=== PATIENT | female | born 1950 | race Caucasian/White ===

== ENCOUNTER → 2018-02-06 07:03 | Outpatient (CLI) | payer MEDICARE, OTHER, SELFPAY | PROVIDERS: PCP Nurse Practitioner; Visit Provider Nurse Practitioner | DX: E78.2 Mixed hyperlipidemia (principal) ==

== ENCOUNTER → 2018-07-01 08:13 | Outpatient (CLI) | payer MEDICARE, OTHER, SELFPAY ==
[2018-07-01 08:58] LABS: Alanine Aminotransferase 30 IU/L (9-52); Albumin Globulin Ratio 1.4 (1.0-2.8); Alkaline Phosphatase 100 U/L (38-126); Aspartate Aminotransferase 24 IU/L (14-36); BUN Creatinine Ratio 32.5 (6-22); Bilirubin Total 0.6 mg/dL (0.2-1.3); Blood Urea Nitrogen 26 mg/dL (7-17); Calcium 9.2 mg/dL (8.4-10.2); Carbon Dioxide 27 mmol/L (22-32); Chloride 106 mmol/L (98-107); Cholesterol 249 mg/dL (140-199); Estimated Glomerular Filt Rate > 60.0 mL/min (>60); Globulin 2.9 g/dL (1.7-4.1); Glucose 100 mg/dL (80-110); HDL Cholesterol 46 mg/dL (40-60); HEMOLYSIS < 15 (0-50); LDL Cholesterol Calculated 174 mg/dL (<100); Sodium 140 mmol/L (137-145); Total Protein 6.9 g/dL (6.3-8.2); Triglycerides 146 mg/dL (35-150)
== END ==
PROVIDERS: PCP Nurse Practitioner; Visit Provider Nurse Practitioner
DX: E78.2 Mixed hyperlipidemia (principal)
CPT/HCPCS: 36415; 80053; 80061

== ENCOUNTER 2021-02-06 13:45 | Outpatient (RCR) | payer MEDICARE, OTHER, SELFPAY ==
--- NOTE | 2020-12-30 15:07 | PT.OIE ---
Current Diagnoses Pain in unspecified hip (12/30/20) Visit Care Team Role Provider Type Mica Pace MD Primary Care Provider Non-Staff Specialty: Internal Medicine Address: [address] [place] [address], [id number] Email: Beatrice Holly MD Family Provider Non-Staff Specialty: Internal Medicine Address: [address] [place] [address], [id number] Email: Len Solorzano MD Attending Provider Non-Staff Referring Provider Specialty: Orthopedic Surgery Address: [address] [place] [address], [id number] Email: Physical Therapy Initial Evaluation PT-OP-A Visit Information Start: 12/30/20 14:40 Freq: Status: Active Protocol: Document 12/30/20 14:41 HH (Rec: 12/30/20 15:07 [email or web address]) Out-Patient Physical Therapy Visit Information Visit Information Visit Type Initial Evaluation Visit Start Time 13:45 Visit Stop Time 14:40 Total Visit Minutes 55 Visit Number 03/22 Number of RECREATIONAL THERAPY TECHNICIAN Visits 0 Evaluation Information Evaluation Date 12/30/20 Precautions Precautions cancer survivor osteopenia PT-OP-B Current Condition Start: 12/30/20 14:40 Freq: Status: Active Protocol: Document 12/30/20 14:41 HH (Rec: 12/30/20 15:07 [email or web address]) Current Condition History of Current Condition Onset Date this summer Current Complaints L lateral hip pain, difficulty with walking History of Current Condition Caitie is a 70yo female here for her L lateral hip pain started this summer after completing a long course of house remodeling which involved heavy lifting. She does not recall any injury but L hip progressively kept getting sore. Her 09/10 pain locates primarily at greater trochanter. Worse with any WB activities, hip movements and sitting. She also has pain sleeping on her L side. She went to see Dr. Solorzano and her hip x-ray= WFL. She was dx with buritis and had a cortisone shot in November which lasted 2 weeks. Denies joint pain, radiating pain, tingling and numbnes. 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 Current Functional Impairments (Reported) Functional Limitations- ADL's unable to sleep on her L side Functional Limitations- Mobility/Gait unable to walk >10mins PT-OP-C Subjective Start: 12/30/20 14:40 Freq: Status: Active Protocol: Document 12/30/20 14:41 (Rec: 12/30/20 15:07 [email or web address]) Patient Questionnaires Lower Extremity Functional Scale LEFS Score 25 LEFS Impairment 60 to 79% Impaired (Score 17- 31) OP-PT Pain Assessment Location L lateral hip Pain Location Details greater trochanter Intensity 8 Scale Used Numeric (0 - 10) Description Aching,Dull Frequency Frequent Pain Aggravating Factors Position,ADL's,Activity, Exercise,Standing,Sitting, Walking,Stair Climbing,Bending ,Lifting Pain Alleviating Factors Cold,Inactivity PT-OP-D Balance Start: 12/30/20 14:40 Freq: Status: Active Protocol: Document 12/30/20 14:41 HH (Rec: 12/30/20 15:07 [email or web address]) Balance Tests Single Limb Standing Single Limb- Right >30s Single Limb- Left unable PT-OP-F Manual Assessment Start: 12/30/20 14:40 Freq: Status: Active Protocol: Document 12/30/20 14:41 HH (Rec: 12/30/20 15:07 [email or web address]) Manual Assessments Soft Tissue Assessment Soft Tissue Mobility Assessment significant pain to light pressure at TFL, greater trochanter and glute max mild pain at IT band significant swelling noted at greater trochanter PT-OP-G Mobility & Gait Start: 12/30/20 14:40 Freq: Status: Active Protocol: Document 12/30/20 14:41 HH (Rec: 12/30/20 15:07 [email or web address]) OP Mobility Evaluation Transfers Sit to Stand stagger stance with push off with UEs from armrests. OP Gait Assessment Gait Deviations General Gait Pattern Antalgic,Decreased Stride Length,Decreased Feet Clearance Factors Limiting Gait Function Factors Limiting Gait Function Decreased Activity Tolerance, Decreased Strength,Limited Range of Motion,Pain,Poor Balance Comments Gait Comments pt walked with a flexed posture; lack of hip extension L>R. Toe in gait L>R; toe strike with LLE. PT-OP-H Neuro Start: 12/30/20 14:40 Freq: Status: Active Protocol: Document 12/30/20 14:41 HH (Rec: 12/30/20 15:07 [email or web address]) Sensation Evaluation Gross Sensation Gross Sensation WNL Deep Tendon Reflex & Clonus Assessment Deep Tendon Reflex Bilateral Achilles Deep Tendon Reflex 2+ Normal Bilateral Patellar Deep Tendon Reflex 2+ Normal PT-OP-J Posture/Palpation/Skin Start: 12/30/20 14:40 Freq: Status: Active Protocol: Document 12/30/20 14:41 HH (Rec: 12/30/20 15:07 [email or web address]) Posture Evaluation Position Standing Weight Distribution Weight Shifted Right Hip Posture (L) Internally Rotated,(R) Internally Rotated PT-OP-K Range of Motion Start: 12/30/20 14:40 Freq: Status: Active Protocol: Document 12/30/20 14:41 HH (Rec: 12/30/20 15:07 [email or web address]) Hip Goniometric Range of Motion Hip Right Active Straight Leg Raise 85 Extension 5 Internal Rotation 40 External Rotation 32 Comments passive extension with pain at lumbar spine pain at knee with both rotation Left Active Straight Leg Raise 85 Extension 0 Internal Rotation 48 External Rotation 30 Comments passive extension with pain at lumbar spine pain at knee with both rotation PT-OP-L Special Tests Start: 12/30/20 14:40 Freq: Status: Active Protocol: Document 12/30/20 14:41 HH (Rec: 12/30/20 15:07 [email or web address]) Special Tests Hip Special Tests Reggie Test Results +VE Comments pain at lumbar FADDIR Comments pain at trochanter Straight Leg Raise Test Results -ve PANCHITO Comments significant tightness at adductors Scour Test Test Results -ve PT-OP-M Strength Start: 12/30/20 14:40 Freq: Status: Active Protocol: Document 12/30/20 14:41 HH (Rec: 12/30/20 15:07 [email or web address]) Hip Strength Hip Manual Muscle Testing Right Flexion (L2) 4- Good- Extension (S1) 4- Good- Abduction 4- Good- Adduction 4- Good- Left Flexion (L2) 3+ Fair+ Extension (S1) 3+ Fair+ Abduction 3+ Fair+ Adduction 3+ Fair+ Knee Strength Knee Manual Muscle Testing Right Flexion (S2) 4 Good Extension (L3) 4 Good Left Flexion (S2) 4 Good Extension (L3) 4 Good PT-OP-Q Treatments Start: 12/30/20 14:40 Freq: Status: Active Protocol: Document 12/30/20 14:41 (Rec: 12/30/20 15:07 [email or web address]) Therapeutic Exercises Supine Exercises figure 4 stretch Supine Exercise Name hip Side left Reps/Minutes 20s hold x5 Comments for HEP, pt reports significant stretching pain at adductor Manual Therapy Treatment Soft Tissue Mobilization L hip Body Location TFL, glute mid Mobilization Type Manual Lymphatic Drainage Intensity/Depth Superficial Body Position Sidelying Comments pt has significant facial grimicing pain to light pressure. it decreases towards the end of session PT-OP-T Assessment and Plan Start: 12/30/20 14:40 Freq: Status: Active Protocol: Document 12/30/20 14:41 (Rec: 12/30/20 15:07 [email or web address]) Physical Therapy Assessment Rehab Potential Rehabilitation Potential Excellent Evaluation Complexity Number of Personal Factors/Comorbidities 3 or More Number of Body Systems Impaired 3 Clinical Presentation at Evaluation Stable Impairments Impairments Activity Tolerance,Balance, Functional Activities, Functional Mobility,Gait,Pain, Posture,ROM,Soft Tissue Mobility,Strength Goals RoM Impairment pt has limited hip ROM Short Term Goal (STG) pt will show improved hip extension and external rotation by 10 degrees. STG Duration 4 weeks Dog Handler Goal (LTG) pt will show improved hip extension and external rotation in order for her to amb with neutral foot and hip position LTG Duration 8 weeks pain Impairment 7/10 L hip pain Short Term Goal (STG) pt will be able to sleep on her L side without increase in L hip pain STG Duration 4 weeks Dog Handler Goal (LTG) pt will be able to walk up to 1 mile 3 times /week without increase in hip pain LTG Duration 8 weeks LEFS Impairment pt scores 25 on LEFS Short Term Goal (STG) pt will be able to show improved hip mobility and strength by scoring >35 on LEFS STG Duration 4 weeks Fpc Goal (LTG) pt will be able to show improved hip mobility and strength by scoring >50 on LEFS LTG Duration 8 weeks Assessment Summary Assessment Caitie is a 70 yo female here for her L hip pain since this summer. Upon assessment, pt presents signs of L greater trochanteric burisits most likely d/t her very limited hip extension and external rotation. This might be d/t her life long toe in walking pattern, skiing and horseriding hobbies. She did respond very well after a short session of manual therapy and hip extension and ER stretch. However, this could be a long course of rehab d/t her existed knee and back pain. Pt will surely benefit from skilled therapy to improve her hip ROM, strength and gait mechanics. Physical Therapy Plan Frequency and Duration Frequency of Treatment 2x/Week Duration of Treatment 8 weeks Plan of Care Start Date 12/30/20 Plan of Care End Date 02/28/21 Therapeutic Interventions Therapeutic Interventions Aquatic Therapy,Balance Training,Gait Training,Home Exercise Program,Joint Mobilizations,Manual Therapy, Neuromuscular Re-education, Patient/Caregiver Education, Self-Care/Home Management,Soft Tissue Mobilization,Taping, Therapeutic Activities, Therapeutic Exercises Modalities Cold Pack/Ice Massage,Electric Stimulation,Hot Packs, Infrared Therapy,Ultrasound Next Visit Focus/Plan Next Note Type Treatment Note Next Visit Plan figure 4 stretch traction hip extension stretchS STM
--- NOTE | 2020-12-30 15:08 | PT.OPPOC ---
Physical, Occupational & Speech Therapy At [facility] Current Diagnoses Pain in unspecified hip (12/30/20) Visit Care Team Role Provider Type Mica Pace MD Primary Care Provider Non-Staff Specialty: Internal Medicine Address: [address] [place] [address], [id number] Email: Beatrice Holly MD Family Provider Non-Staff Specialty: Internal Medicine Address: [address] [place] [id number] Email: Len Solorzano MD Attending Provider Non-Staff Referring Provider Specialty: Orthopedic Surgery Address: [address] [place] [address], [phone] Email: Plan Of Care PT-OP-T Assessment and Plan Start: 12/30/20 14:40 Freq: Status: Active Protocol: Document 12/30/20 14:41 (Rec: 12/30/20 15:07 [email or web address]) Physical Therapy Assessment Rehab Potential Rehabilitation Potential Excellent Evaluation Complexity Number of Personal Factors/Comorbidities 3 or More Number of Body Systems Impaired 3 Clinical Presentation at Evaluation Stable Impairments Impairments Activity Tolerance,Balance, Functional Activities, Functional Mobility,Gait,Pain, Posture,ROM,Soft Tissue Mobility,Strength Goals RoM Impairment pt has limited hip ROM Short Term Goal (STG) pt will show improved hip extension and external rotation by 10 degrees. STG Duration 4 weeks Recreational Director Goal (LTG) pt will show improved hip extension and external rotation in order for her to amb with neutral foot and hip position LTG Duration 8 weeks pain Impairment 7/10 L hip pain Short Term Goal (STG) pt will be able to sleep on her L side without increase in L hip pain STG Duration 4 weeks Recreational Director Goal (LTG) pt will be able to walk up to 1 mile 3 times /week without increase in hip pain LTG Duration 8 weeks LEFS Impairment pt scores 25 on LEFS Short Term Goal (STG) pt will be able to show improved hip mobility and strength by scoring >35 on LEFS STG Duration 4 weeks Custodial Goal (LTG) pt will be able to show improved hip mobility and strength by scoring >50 on LEFS LTG Duration 8 weeks Assessment Summary Assessment Caitie is a 70 yo female here for her L hip pain since this summer. Upon assessment, pt presents signs of L greater trochanteric burisits most likely d/t her very limited hip extension and external rotation. This might be d/t her life long toe in walking pattern, skiing and horseriding hobbies. She did respond very well after a short session of manual therapy and hip extension and ER stretch. However, this could be a long course of rehab d/t her existed knee and back pain. Pt will surely benefit from skilled therapy to improve her hip ROM, strength and gait mechanics. Physical Therapy Plan Frequency and Duration Frequency of Treatment 2x/Week Duration of Treatment 8 weeks Plan of Care Start Date 12/30/20 Plan of Care End Date 02/28/21 Therapeutic Interventions Therapeutic Interventions Aquatic Therapy,Balance Training,Gait Training,Home Exercise Program,Joint Mobilizations,Manual Therapy, Neuromuscular Re-education, Patient/Caregiver Education, Self-Care/Home Management,Soft Tissue Mobilization,Taping, Therapeutic Activities, Therapeutic Exercises Modalities Cold Pack/Ice Massage,Electric Stimulation,Hot Packs, Infrared Therapy,Ultrasound Next Visit Focus/Plan Next Note Type Treatment Note Next Visit Plan figure 4 stretch traction hip extension [facility]S [facility] Plan of Care Dates Plan of Care Start Date 12/30/20 Plan of Care End Date 02/28/21 Electronically Signed by: Kamran Murguia, PT 12/30/20 [id number] Please Sign and Return: I have reviewed this Plan of Care and certify that the skilled therapy services above are required to meet the patient?s needs. Physician Signature Date Printed Name and Credentials Clinical Instructor Signature Printed Name and Credentials
--- NOTE | 2021-01-06 14:32 | PT.OTN ---
Current Diagnoses Pain in unspecified hip (01/06/21) Physical Therapy Treatment Note PT-OP-A Visit Information Start: 12/30/20 14:40 Freq: Status: Active Protocol: Document 01/06/21 13:39 HH (Rec: 01/06/21 14:31 [id number]) Out-Patient Physical Therapy Visit Information Visit Information Visit Type Treatment Note Visit Start Time 13:45 Visit Stop Time 14:30 Total Visit Minutes 45 Visit Number 2/ Number of JUNIOR STAFF ACCOUNTANT Visits 0 PT-OP-B Current Condition Start: 12/30/20 14:40 Freq: Status: Active Protocol: Document 12/30/20 14:41 HH (Rec: 12/30/20 15:07 [email or web address]) Current Condition History of Current Condition Onset Date this summer Current Complaints L lateral hip pain, difficulty with walking History of Current Condition Caitie is a 70yo female here for her L lateral hip pain started this summer after completing a long course of house remodeling which involved heavy lifting. She does not recall any injury but L hip progressively kept getting sore. Her 09/10 pain locates primarily at greater trochanter. Worse with any WB activities, hip movements and sitting. She also has pain sleeping on her L side. She went to see Dr. Solorzano and her hip x-ray= WFL. She was dx with buritis and had a cortisone shot in November which lasted 2 weeks. Denies joint pain, radiating pain, tingling and numbnes. 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 Current Functional Impairments (Reported) Functional Limitations- ADL's unable to sleep on her L side Functional Limitations- Mobility/Gait unable to walk >10mins PT-OP-C Subjective Start: 12/30/20 14:40 Freq: Status: Active Protocol: Document 01/06/21 13:39 HH (Rec: 01/06/21 14:31 [id number]) OP-PT Subjective Patient Comments Patient Comments Im walking better with slightly less pain. Sleeping is about the same. I have been doing my stretches. Patient Reported Progress Improving PT-OP-D Balance Start: 12/30/20 14:40 Freq: Status: Active Protocol: Document 12/30/20 14:41 HH (Rec: 12/30/20 15:07 [email or web address]) Balance Tests Single Limb Standing Single Limb- Right >30s Single Limb- Left unable PT-OP-F Manual Assessment Start: 12/30/20 14:40 Freq: Status: Active Protocol: Document 12/30/20 14:41 (Rec: 12/30/20 15:07 [email or web address]) Manual Assessments Soft Tissue Assessment Soft Tissue Mobility Assessment significant pain to light pressure at TFL, greater trochanter and glute max mild pain at IT band significant swelling noted at greater trochanter PT-OP-G Mobility & Gait Start: 12/30/20 14:40 Freq: Status: Active Protocol: Document 12/30/20 14:41 HH (Rec: 12/30/20 15:07 [email or web address]) OP Mobility Evaluation Transfers Sit to Stand stagger stance with push off with UEs from armrests. OP Gait Assessment Gait Deviations General Gait Pattern Antalgic,Decreased Stride Length,Decreased Feet Clearance Factors Limiting Gait Function Factors Limiting Gait Function Decreased Activity Tolerance, Decreased Strength,Limited Range of Motion,Pain,Poor Balance Comments Gait Comments pt walked with a flexed posture; lack of hip extension L>R. Toe in gait L>R; toe strike with LLE. PT-OP-H Neuro Start: 12/30/20 14:40 Freq: Status: Active Protocol: Document 12/30/20 14:41 (Rec: 12/30/20 15:07 [email or web address]) Sensation Evaluation Gross Sensation Gross Sensation WNL Deep Tendon Reflex & Clonus Assessment Deep Tendon Reflex Bilateral Achilles Deep Tendon Reflex 2+ Normal Bilateral Patellar Deep Tendon Reflex 2+ Normal PT-OP-J Posture/Palpation/Skin Start: 12/30/20 14:40 Freq: Status: Active Protocol: Document 12/30/20 14:41 (Rec: 12/30/20 15:07 [email or web address]) Posture Evaluation Position Standing Weight Distribution Weight Shifted Right Hip Posture (L) Internally Rotated,(R) Internally Rotated PT-OP-K Range of Motion Start: 12/30/20 14:40 Freq: Status: Active Protocol: Document 12/30/20 14:41 (Rec: 12/30/20 15:07 [email or web address]) Hip Goniometric Range of Motion Hip Right Active Straight Leg Raise 85 Extension 5 Internal Rotation 40 External Rotation 32 Comments passive extension with pain at lumbar spine pain at knee with both rotation Left Active Straight Leg Raise 85 Extension 0 Internal Rotation 48 External Rotation 30 Comments passive extension with pain at lumbar spine pain at knee with both rotation PT-OP-L Special Tests Start: 12/30/20 14:40 Freq: Status: Active Protocol: Document 12/30/20 14:41 HH (Rec: 12/30/20 15:07 [email or web address]) Special Tests Hip Special Tests Reggie Test Results +VE Comments pain at lumbar FADDIR Comments pain at trochanter Straight Leg Raise Test Results -ve PANCHITO Comments significant tightness at adductors Scour Test Test Results -ve PT-OP-M Strength Start: 12/30/20 14:40 Freq: Status: Active Protocol: Document 12/30/20 14:41 HH (Rec: 12/30/20 15:07 [email or web address]) Hip Strength Hip Manual Muscle Testing Right Flexion (L2) 4- Good- Extension (S1) 4- Good- Abduction 4- Good- Adduction 4- Good- Left Flexion (L2) 3+ Fair+ Extension (S1) 3+ Fair+ Abduction 3+ Fair+ Adduction 3+ Fair+ Knee Strength Knee Manual Muscle Testing Right Flexion (S2) 4 Good Extension (L3) 4 Good Left Flexion (S2) 4 Good Extension (L3) 4 Good PT-OP-Q Treatments Start: 12/30/20 14:40 Freq: Status: Active Protocol: Document 01/06/21 13:39 HH (Rec: 01/06/21 14:31 [id number]) Therapeutic Exercises Supine Exercises bridging Reps/Minutes 10 x2 Comments for HEP reggie stretch Reps/Minutes 30s x 5 Comments for HEP figure 4 stretch Supine Exercise Name hip Side left Reps/Minutes 20s hold x5 Comments for HEP, pt reports significant stretching pain at adductor Sidelying Exercises clamshell Reps/Minutes 8x2 Comments for HEP Manual Therapy Treatment Soft Tissue Mobilization hip flexors Mobilization Type Myofascial Release,Sustained Pressure,Trigger Point Release Intensity/Depth Moderate Body Position Hooklying Comments with hip rotation passively. L hip Body Location TFL, glute mid Mobilization Type Myofascial Release Intensity/Depth Superficial Body Position Sidelying Comments pt has significant facial grimicing pain to light pressure. it decreases towards the end of session PT-OP-T Assessment and Plan Start: 12/30/20 14:40 Freq: Status: Active Protocol: Document 01/06/21 13:39 (Rec: 01/06/21 14:31 [id number]) Physical Therapy Assessment Goals RoM Impairment pt has limited hip ROM Short Term Goal (STG) pt will show improved hip extension and external rotation by 10 degrees. STG Duration 4 weeks Hardboard Panel Printer Goal (LTG) pt will show improved hip extension and external rotation in order for her to amb with neutral foot and hip position LTG Duration 8 weeks pain Impairment 7/10 L hip pain Short Term Goal (STG) pt will be able to sleep on her L side without increase in L hip pain STG Duration 4 weeks Fpc Goal (LTG) pt will be able to walk up to 1 mile 3 times /week without increase in hip pain LTG Duration 8 weeks LEFS Impairment pt scores 25 on LEFS Short Term Goal (STG) pt will be able to show improved hip mobility and strength by scoring >35 on LEFS STG Duration 4 weeks Fpc Goal (LTG) pt will be able to show improved hip mobility and strength by scoring >50 on LEFS LTG Duration 8 weeks Assessment Summary Assessment pt reports improvements after evaluation. She walked in here with decreased toe in gait. Added reggie martinez, beau, bridging. Pt reports no pain while walking at the end of session. Physical Therapy Plan Frequency and Duration Frequency of Treatment 2x/Week Duration of Treatment 8 weeks Plan of Care Start Date 12/30/20 Plan of Care End Date 02/28/21 Therapeutic Interventions Therapeutic Interventions Aquatic Therapy,Balance Training,Gait Training,Home Exercise Program,Joint Mobilizations,Manual Therapy, Neuromuscular Re-education, Patient/Caregiver Education, Self-Care/Home Management,Soft Tissue Mobilization,Taping, Therapeutic Activities, Therapeutic Exercises Modalities Cold Pack/Ice Massage,Electric Stimulation,Hot Packs, Infrared Therapy,Ultrasound Next Visit Focus/Plan Next Note Type Treatment Note Next Visit Plan figure 4 stretch traction hip extension stretchS STM
--- NOTE | 2021-01-09 11:20 | PT.OTN ---
Current Diagnoses Pain in unspecified hip (01/09/21) Physical Therapy Treatment Note PT-OP-A Visit Information Start: 12/30/20 14:40 Freq: Status: Active Protocol: Document 01/09/21 10:36 HH (Rec: 01/09/21 11:20 [id number]) Out-Patient Physical Therapy Visit Information Visit Information Visit Type Treatment Note Visit Start Time 10:30 Visit Stop Time 11:23 Total Visit Minutes 53 Visit Number 3 Number of BELT SANDER Visits 0 PT-OP-B Current Condition Start: 12/30/20 14:40 Freq: Status: Active Protocol: Document 12/30/20 14:41 HH (Rec: 12/30/20 15:07 HH [email or web address]) Current Condition History of Current Condition Onset Date this summer Current Complaints L lateral hip pain, difficulty with walking History of Current Condition Caitie is a 70yo female here for her L lateral hip pain started this summer after completing a long course of house remodeling which involved heavy lifting. She does not recall any injury but L hip progressively kept getting sore. Her 09/10 pain locates primarily at greater trochanter. Worse with any WB activities, hip movements and sitting. She also has pain sleeping on her L side. She went to see Dr. Solorzano and her hip x-ray= WFL. She was dx with buritis and had a cortisone shot in November which lasted 2 weeks. Denies joint pain, radiating pain, tingling and numbnes. 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 Current Functional Impairments (Reported) Functional Limitations- ADL's unable to sleep on her L side Functional Limitations- Mobility/Gait unable to walk >10mins PT-OP-C Subjective Start: 12/30/20 14:40 Freq: Status: Active Protocol: Document 01/09/21 10:36 HH (Rec: 01/09/21 11:20 [id number]) OP-PT Subjective Patient Comments Patient Comments I felt really good after last session. I was able to walk better and not much pain. I do feel a bit painful and stiffness today. I stood a lot yesterday. Patient Reported Progress Improving PT-OP-D Balance Start: 12/30/20 14:40 Freq: Status: Active Protocol: Document 12/30/20 14:41 HH (Rec: 12/30/20 15:07 [email or web address]) Balance Tests Single Limb Standing Single Limb- Right >30s Single Limb- Left unable PT-OP-F Manual Assessment Start: 12/30/20 14:40 Freq: Status: Active Protocol: Document 12/30/20 14:41 (Rec: 12/30/20 15:07 [email or web address]) Manual Assessments Soft Tissue Assessment Soft Tissue Mobility Assessment significant pain to light pressure at TFL, greater trochanter and glute max mild pain at IT band significant swelling noted at greater trochanter PT-OP-G Mobility & Gait Start: 12/30/20 14:40 Freq: Status: Active Protocol: Document 12/30/20 14:41 (Rec: 12/30/20 15:07 [email or web address]) OP Mobility Evaluation Transfers Sit to Stand stagger stance with push off with UEs from armrests. OP Gait Assessment Gait Deviations General Gait Pattern Antalgic,Decreased Stride Length,Decreased Feet Clearance Factors Limiting Gait Function Factors Limiting Gait Function Decreased Activity Tolerance, Decreased Strength,Limited Range of Motion,Pain,Poor Balance Comments Gait Comments pt walked with a flexed posture; lack of hip extension L>R. Toe in gait L>R; toe strike with LLE. PT-OP-H Neuro Start: 12/30/20 14:40 Freq: Status: Active Protocol: Document 12/30/20 14:41 (Rec: 12/30/20 15:07 [email or web address]) Sensation Evaluation Gross Sensation Gross Sensation WNL Deep Tendon Reflex & Clonus Assessment Deep Tendon Reflex Bilateral Achilles Deep Tendon Reflex 2+ Normal Bilateral Patellar Deep Tendon Reflex 2+ Normal PT-OP-J Posture/Palpation/Skin Start: 12/30/20 14:40 Freq: Status: Active Protocol: Document 12/30/20 14:41 (Rec: 12/30/20 15:07 [email or web address]) Posture Evaluation Position Standing Weight Distribution Weight Shifted Right Hip Posture (L) Internally Rotated,(R) Internally Rotated PT-OP-K Range of Motion Start: 12/30/20 14:40 Freq: Status: Active Protocol: Document 12/30/20 14:41 (Rec: 12/30/20 15:07 [email or web address]) Hip Goniometric Range of Motion Hip Right Active Straight Leg Raise 85 Extension 5 Internal Rotation 40 External Rotation 32 Comments passive extension with pain at lumbar spine pain at knee with both rotation Left Active Straight Leg Raise 85 Extension 0 Internal Rotation 48 External Rotation 30 Comments passive extension with pain at lumbar spine pain at knee with both rotation PT-OP-L Special Tests Start: 12/30/20 14:40 Freq: Status: Active Protocol: Document 12/30/20 14:41 HH (Rec: 12/30/20 15:07 [email or web address]) Special Tests Hip Special Tests Reggie Test Results +VE Comments pain at lumbar FADDIR Comments pain at trochanter Straight Leg Raise Test Results -ve PANCHITO Comments significant tightness at adductors Scour Test Test Results -ve PT-OP-M Strength Start: 12/30/20 14:40 Freq: Status: Active Protocol: Document 12/30/20 14:41 HH (Rec: 12/30/20 15:07 [email or web address]) Hip Strength Hip Manual Muscle Testing Right Flexion (L2) 4- Good- Extension (S1) 4- Good- Abduction 4- Good- Adduction 4- Good- Left Flexion (L2) 3+ Fair+ Extension (S1) 3+ Fair+ Abduction 3+ Fair+ Adduction 3+ Fair+ Knee Strength Knee Manual Muscle Testing Right Flexion (S2) 4 Good Extension (L3) 4 Good Left Flexion (S2) 4 Good Extension (L3) 4 Good PT-OP-Q Treatments Start: 12/30/20 14:40 Freq: Status: Active Protocol: Document 01/09/21 10:36 HH (Rec: 01/09/21 11:20 [id number]) Cardio Equipment Bicycle (Upright) Duration (Minutes) 5 Resistance 5 Therapeutic Exercises Supine Exercises bridging Reps/Minutes 10 x2 Comments for HEP reggie stretch Reps/Minutes 30s x 5 Comments for HEP figure 4 stretch Supine Exercise Name hip Side left Reps/Minutes 20s hold x5 Comments for HEP, pt reports significant stretching pain at adductor Sidelying Exercises clamshell Reps/Minutes 8x2 Comments for HEP Gait Training Gait Activity ground level Surface ground level Comments cues on hip extension for push off. keep toes in neutral. Manual Therapy Treatment Soft Tissue Mobilization hip flexors Mobilization Type Myofascial Release,Sustained Pressure,Trigger Point Release Intensity/Depth Moderate Body Position Hooklying Comments with hip rotation passively. L hip Body Location TFL, glute mid Mobilization Type Myofascial Release Intensity/Depth Superficial Body Position Sidelying Comments pt has significant facial grimicing pain to light pressure. it decreases towards the end of session PT-OP-R Modalities Start: 12/30/20 14:40 Freq: Status: Active Protocol: Document 01/09/21 10:36 HH (Rec: 01/09/21 11:20 HH [id number]) Hot Pack/Cold Pack Treatment Hot Pack Location L hip Patient Position Sidelying Treatment Duration (minutes) 10 Patient Tolerance Good PT-OP-T Assessment and Plan Start: 12/30/20 14:40 Freq: Status: Active Protocol: Document 01/09/21 10:36 HH (Rec: 01/09/21 11:20 HH [id number]) Physical Therapy Assessment Goals RoM Impairment pt has limited hip ROM Short Term Goal (STG) pt will show improved hip extension and external rotation by 10 degrees. STG Duration 4 weeks Ultrasound Supervisor Goal (LTG) pt will show improved hip extension and external rotation in order for her to amb with neutral foot and hip position LTG Duration 8 weeks pain Impairment 7/10 L hip pain Short Term Goal (STG) pt will be able to sleep on her L side without increase in L hip pain STG Duration 4 weeks [facility]ci Goal (LTG) pt will be able to walk up to 1 mile 3 times /week without increase in hip pain LTG Duration 8 weeks LEFS Impairment pt scores 25 on LEFS Short Term Goal (STG) pt will be able to show improved hip mobility and strength by scoring >35 on LEFS STG Duration 4 weeks [facility]ci Goal (LTG) pt will be able to show improved hip mobility and strength by scoring >50 on LEFS LTG Duration 8 weeks Assessment Summary Assessment pt reports increased soreness and stiffness after standing a couple hours yesterday at a . However, her hip ROM does improve with less guarding. She also shows good unerstanding with HEP. I recommended her to complete HEP in the morning and before she sleeps. Physical Therapy Plan Frequency and Duration Frequency of Treatment 2x/Week Duration of Treatment 8 weeks Plan of Care Start Date 12/30/20 Plan of Care End Date 02/28/21 Therapeutic Interventions Therapeutic Interventions Aquatic Therapy,Balance Training,Gait Training,Home Exercise Program,Joint Mobilizations,Manual Therapy, Neuromuscular Re-education, Patient/Caregiver Education, Self-Care/Home Management,Soft Tissue Mobilization,Taping, Therapeutic Activities, Therapeutic Exercises Modalities Cold Pack/Ice Massage,Electric Stimulation,Hot Packs, Infrared Therapy,Ultrasound Next Visit Focus/Plan Next Note Type Treatment Note Next Visit Plan figure 4 stretch traction hip extension stretchS STM
--- NOTE | 2021-01-11 10:30 | PT.OTN ---
Current Diagnoses Pain in unspecified hip (01/11/21) Physical Therapy Treatment Note PT-OP-A Visit Information Start: 12/30/20 14:40 Freq: Status: Active Protocol: Document 01/11/21 09:48 HH (Rec: 01/11/21 10:30 [id number]) Out-Patient Physical Therapy Visit Information Visit Information Visit Type Treatment Note Visit Start Time 09:45 Visit Stop Time 10:38 Total Visit Minutes 53 Visit Number 06/20 Number of MOTORBOAT MECH[employer]IC INBOARD Visits 0 PT-OP-B Current Condition Start: 12/30/20 14:40 Freq: Status: Active Protocol: Document 12/30/20 14:41 HH (Rec: 12/30/20 15:07 [email or web address]) Current Condition History of Current Condition Onset Date this summer Current Complaints L lateral hip pain, difficulty with walking History of Current Condition Caitie is a 70yo female here for her L lateral hip pain started this summer after completing a long course of house remodeling which involved heavy lifting. She does not recall any injury but L hip progressively kept getting sore. Her 09/10 pain locates primarily at greater trochanter. Worse with any WB activities, hip movements and sitting. She also has pain sleeping on her L side. She went to see Dr. Solorzano and her hip x-ray= WFL. She was dx with buritis and had a cortisone shot in November which lasted 2 weeks. Denies joint pain, radiating pain, tingling and numbnes. 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 Current Functional Impairments (Reported) Functional Limitations- ADL's unable to sleep on her L side Functional Limitations- Mobility/Gait unable to walk >10mins PT-OP-C Subjective Start: 12/30/20 14:40 Freq: Status: Active Protocol: Document 01/11/21 09:48 HH (Rec: 01/11/21 10:30 [id number]) OP-PT Subjective Patient Comments Patient Comments I tweaked my L hip yesterday' s morning. I think i might stretch it too far with the figure 4. Patient Reported Progress Same PT-OP-D Balance Start: 12/30/20 14:40 Freq: Status: Active Protocol: Document 12/30/20 14:41 HH (Rec: 12/30/20 15:07 HH [email or web address]) Balance Tests Single Limb Standing Single Limb- Right >30s Single Limb- Left unable PT-OP-F Manual Assessment Start: 12/30/20 14:40 Freq: Status: Active Protocol: Document 12/30/20 14:41 (Rec: 12/30/20 15:07 [email or web address]) Manual Assessments Soft Tissue Assessment Soft Tissue Mobility Assessment significant pain to light pressure at TFL, greater trochanter and glute max mild pain at IT band significant swelling noted at greater trochanter PT-OP-G Mobility & Gait Start: 12/30/20 14:40 Freq: Status: Active Protocol: Document 12/30/20 14:41 HH (Rec: 12/30/20 15:07 [email or web address]) OP Mobility Evaluation Transfers Sit to Stand stagger stance with push off with UEs from armrests. OP Gait Assessment Gait Deviations General Gait Pattern Antalgic,Decreased Stride Length,Decreased Feet Clearance Factors Limiting Gait Function Factors Limiting Gait Function Decreased Activity Tolerance, Decreased Strength,Limited Range of Motion,Pain,Poor Balance Comments Gait Comments pt walked with a flexed posture; lack of hip extension L>R. Toe in gait L>R; toe strike with LLE. PT-OP-H Neuro Start: 12/30/20 14:40 Freq: Status: Active Protocol: Document 12/30/20 14:41 (Rec: 12/30/20 15:07 [email or web address]) Sensation Evaluation Gross Sensation Gross Sensation WNL Deep Tendon Reflex & Clonus Assessment Deep Tendon Reflex Bilateral Achilles Deep Tendon Reflex 2+ Normal Bilateral Patellar Deep Tendon Reflex 2+ Normal PT-OP-J Posture/Palpation/Skin Start: 12/30/20 14:40 Freq: Status: Active Protocol: Document 12/30/20 14:41 (Rec: 12/30/20 15:07 [email or web address]) Posture Evaluation Position Standing Weight Distribution Weight Shifted Right Hip Posture (L) Internally Rotated,(R) Internally Rotated PT-OP-K Range of Motion Start: 12/30/20 14:40 Freq: Status: Active Protocol: Document 12/30/20 14:41 (Rec: 12/30/20 15:07 [email or web address]) Hip Goniometric Range of Motion Hip Right Active Straight Leg Raise 85 Extension 5 Internal Rotation 40 External Rotation 32 Comments passive extension with pain at lumbar spine pain at knee with both rotation Left Active Straight Leg Raise 85 Extension 0 Internal Rotation 48 External Rotation 30 Comments passive extension with pain at lumbar spine pain at knee with both rotation PT-OP-L Special Tests Start: 12/30/20 14:40 Freq: Status: Active Protocol: Document 12/30/20 14:41 HH (Rec: 12/30/20 15:07 HH [email or web address]) Special Tests Hip Special Tests Reggie Test Results +VE Comments pain at lumbar FADDIR Comments pain at trochanter Straight Leg Raise Test Results -ve PANCHITO Comments significant tightness at adductors Scour Test Test Results -ve PT-OP-M Strength Start: 12/30/20 14:40 Freq: Status: Active Protocol: Document 12/30/20 14:41 HH (Rec: 12/30/20 15:07 HH [email or web address]) Hip Strength Hip Manual Muscle Testing Right Flexion (L2) 4- Good- Extension (S1) 4- Good- Abduction 4- Good- Adduction 4- Good- Left Flexion (L2) 3+ Fair+ Extension (S1) 3+ Fair+ Abduction 3+ Fair+ Adduction 3+ Fair+ Knee Strength Knee Manual Muscle Testing Right Flexion (S2) 4 Good Extension (L3) 4 Good Left Flexion (S2) 4 Good Extension (L3) 4 Good PT-OP-Q Treatments Start: 12/30/20 14:40 Freq: Status: Active Protocol: Document 01/11/21 09:48 HH (Rec: 01/11/21 10:30 HH [id number]) Cardio Equipment Recumbent Stepper (Sci-Fit) Duration (Minutes) 5 Resistance 3 Gym Equipment Shuttle Recovery SL squat Resistance #37 Shuttle Recovery Platform Stable Reps/Time 15 x2 Therapeutic Exercises Supine Exercises bridging Equipment Used red band on knees. Reps/Minutes 10 x2 Comments for HEP reggie stretch Reps/Minutes 30s x 5 Comments for HEP figure 4 stretch Supine Exercise Name hip Side left Reps/Minutes 20s hold x5 Comments for HEP, pt reports significant stretching pain at adductor Sidelying Exercises clamshell Reps/Minutes 10x2 Comments for HEP Manual Therapy Treatment Soft Tissue Mobilization hip flexors Mobilization Type Myofascial Release,Sustained Pressure,Trigger Point Release Intensity/Depth Moderate Body Position Hooklying Comments with hip rotation passively. L hip Body Location TFL, glute mid Mobilization Type Myofascial Release Intensity/Depth Superficial Body Position Sidelying Comments pt has significant facial grimicing pain to light pressure. it decreases towards the end of session Manual Traction L hip Body Position Supine Reps/Duration 10s x8 Comments from lower thighs PT-OP-R Modalities Start: 12/30/20 14:40 Freq: Status: Active Protocol: Document 01/11/21 09:48 HH (Rec: 01/11/21 10:30 HH [id number]) Hot Pack/Cold Pack Treatment Hot Pack Location L hip Patient Position Sidelying Treatment Duration (minutes) 10 Patient Tolerance Good PT-OP-T Assessment and Plan Start: 12/30/20 14:40 Freq: Status: Active Protocol: Document 01/11/21 09:48 HH (Rec: 01/11/21 10:30 HH [id number]) Physical Therapy Assessment Goals RoM Impairment pt has limited hip ROM Short Term Goal (STG) pt will show improved hip extension and external rotation by 10 degrees. STG Duration 4 weeks Correction Goal (LTG) pt will show improved hip extension and external rotation in order for her to amb with neutral foot and hip position LTG Duration 8 weeks pain Impairment 7/10 L hip pain Short Term Goal (STG) pt will be able to sleep on her L side without increase in L hip pain STG Duration 4 weeks Tire Buffer Goal (LTG) pt will be able to walk up to 1 mile 3 times /week without increase in hip pain LTG Duration 8 weeks LEFS Impairment pt scores 25 on LEFS Short Term Goal (STG) pt will be able to show improved hip mobility and strength by scoring >35 on LEFS STG Duration 4 weeks Tire Buffer Goal (LTG) pt will be able to show improved hip mobility and strength by scoring >50 on LEFS LTG Duration 8 weeks Assessment Summary Assessment Pt reports she tweaked her hip yesterday and she is doing well today. Her active ER ROM is better in sidelying now. Added SL squat on leg press machine and she yonatan very well. Will progress her strengthening ex accordingly Physical Therapy Plan Frequency and Duration Frequency of Treatment 2x/Week Duration of Treatment 8 weeks Plan of Care Start Date 12/30/20 Plan of Care End Date 02/28/21 Therapeutic Interventions Therapeutic Interventions Aquatic Therapy,Balance Training,Gait Training,Home Exercise Program,Joint Mobilizations,Manual Therapy, Neuromuscular Re-education, Patient/Caregiver Education, Self-Care/Home Management,Soft Tissue Mobilization,Taping, Therapeutic Activities, Therapeutic Exercises Modalities Cold Pack/Ice Massage,Electric Stimulation,Hot Packs, Infrared Therapy,Ultrasound Next Visit Focus/Plan Next Note Type Treatment Note Next Visit Plan figure 4 stretch traction hip extension stretchS STM
--- NOTE | 2021-01-18 12:08 | PT.OTN ---
Current Diagnoses Pain in unspecified hip (01/18/21) Physical Therapy Treatment Note PT-OP-A Visit Information Start: 12/30/20 14:40 Freq: Status: Active Protocol: Document 01/18/21 11:25 HH (Rec: 01/18/21 12:06 [id number]) Out-Patient Physical Therapy Visit Information Visit Information Visit Type Treatment Note Visit Note pt's pain at 04/13 Visit Start Time 11:17 Visit Stop Time 12:11 Total Visit Minutes 54 Visit Number 07/20 Number of KEG RAISER Visits 0 PT-OP-B Current Condition Start: 12/30/20 14:40 Freq: Status: Active Protocol: Document 12/30/20 14:41 HH (Rec: 12/30/20 15:07 [email or web address]) Current Condition History of Current Condition Onset Date this summer Current Complaints L lateral hip pain, difficulty with walking History of Current Condition Caitie is a 70yo female here for her L lateral hip pain started this summer after completing a long course of house remodeling which involved heavy lifting. She does not recall any injury but L hip progressively kept getting sore. Her 09/10 pain locates primarily at greater trochanter. Worse with any WB activities, hip movements and sitting. She also has pain sleeping on her L side. She went to see Dr. Solorzano and her hip x-ray= WFL. She was dx with buritis and had a cortisone shot in November which lasted 2 weeks. Denies joint pain, radiating pain, tingling and numbnes. 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 Current Functional Impairments (Reported) Functional Limitations- ADL's unable to sleep on her L side Functional Limitations- Mobility/Gait unable to walk >10mins PT-OP-C Subjective Start: 12/30/20 14:40 Freq: Status: Active Protocol: Document 01/18/21 11:25 HH (Rec: 01/18/21 12:06 [id number]) OP-PT Subjective Patient Comments Patient Comments I was doing pretty good after standing / walking for hours at the . My pain is pretty steady except doing the figure 4 stretch. Im walking better since therapy. the worse is getting out of the chair. Patient Reported Progress Improving PT-OP-D Balance Start: 12/30/20 14:40 Freq: Status: Active Protocol: Document 12/30/20 14:41 HH (Rec: 12/30/20 15:07 [email or web address]) Balance Tests Single Limb Standing Single Limb- Right >30s Single Limb- Left unable PT-OP-F Manual Assessment Start: 12/30/20 14:40 Freq: Status: Active Protocol: Document 12/30/20 14:41 HH (Rec: 12/30/20 15:07 [email or web address]) Manual Assessments Soft Tissue Assessment Soft Tissue Mobility Assessment significant pain to light pressure at TFL, greater trochanter and glute max mild pain at IT band significant swelling noted at greater trochanter PT-OP-G Mobility & Gait Start: 12/30/20 14:40 Freq: Status: Active Protocol: Document 12/30/20 14:41 HH (Rec: 12/30/20 15:07 [email or web address]) OP Mobility Evaluation Transfers Sit to Stand stagger stance with push off with UEs from armrests. OP Gait Assessment Gait Deviations General Gait Pattern Antalgic,Decreased Stride Length,Decreased Feet Clearance Factors Limiting Gait Function Factors Limiting Gait Function Decreased Activity Tolerance, Decreased Strength,Limited Range of Motion,Pain,Poor Balance Comments Gait Comments pt walked with a flexed posture; lack of hip extension L>R. Toe in gait L>R; toe strike with LLE. PT-OP-H Neuro Start: 12/30/20 14:40 Freq: Status: Active Protocol: Document 12/30/20 14:41 HH (Rec: 12/30/20 15:07 [email or web address]) Sensation Evaluation Gross Sensation Gross Sensation WNL Deep Tendon Reflex & Clonus Assessment Deep Tendon Reflex Bilateral Achilles Deep Tendon Reflex 2+ Normal Bilateral Patellar Deep Tendon Reflex 2+ Normal PT-OP-J Posture/Palpation/Skin Start: 12/30/20 14:40 Freq: Status: Active Protocol: Document 12/30/20 14:41 HH (Rec: 12/30/20 15:07 [email or web address]) Posture Evaluation Position Standing Weight Distribution Weight Shifted Right Hip Posture (L) Internally Rotated,(R) Internally Rotated PT-OP-K Range of Motion Start: 12/30/20 14:40 Freq: Status: Active Protocol: Document 12/30/20 14:41 HH (Rec: 12/30/20 15:07 [email or web address]) Hip Goniometric Range of Motion Hip Right Active Straight Leg Raise 85 Extension 5 Internal Rotation 40 External Rotation 32 Comments passive extension with pain at lumbar spine pain at knee with both rotation Left Active Straight Leg Raise 85 Extension 0 Internal Rotation 48 External Rotation 30 Comments passive extension with pain at lumbar spine pain at knee with both rotation PT-OP-L Special Tests Start: 12/30/20 14:40 Freq: Status: Active Protocol: Document 12/30/20 14:41 HH (Rec: 12/30/20 15:07 [email or web address]) Special Tests Hip Special Tests Reggie Test Results +VE Comments pain at lumbar FADDIR Comments pain at trochanter Straight Leg Raise Test Results -ve PANCHITO Comments significant tightness at adductors Scour Test Test Results -ve PT-OP-M Strength Start: 12/30/20 14:40 Freq: Status: Active Protocol: Document 12/30/20 14:41 HH (Rec: 12/30/20 15:07 [email or web address]) Hip Strength Hip Manual Muscle Testing Right Flexion (L2) 4- Good- Extension (S1) 4- Good- Abduction 4- Good- Adduction 4- Good- Left Flexion (L2) 3+ Fair+ Extension (S1) 3+ Fair+ Abduction 3+ Fair+ Adduction 3+ Fair+ Knee Strength Knee Manual Muscle Testing Right Flexion (S2) 4 Good Extension (L3) 4 Good Left Flexion (S2) 4 Good Extension (L3) 4 Good PT-OP-Q Treatments Start: 12/30/20 14:40 Freq: Status: Active Protocol: Document 01/18/21 11:25 HH (Rec: 01/18/21 12:06 [id number]) Cardio Equipment Recumbent Bicycle Duration (Minutes) 5 Resistance 5 Gym Equipment Shuttle Recovery SL squat Resistance #37, 50 Shuttle Recovery Platform Stable Reps/Time 15 x3 Therapeutic Exercises Supine Exercises bridging Equipment Used red band on knees. Reps/Minutes 10 x2 Comments for HEP reggie stretch Reps/Minutes 30s x 5 Comments for HEP Sidelying Exercises clamshell Reps/Minutes 10x2 Comments for HEP Therapeutic Activity Therapeutic Activity STS Reps/Minutes 10 x2 Comments band on knees. Manual Therapy Treatment Soft Tissue Mobilization hip flexors Mobilization Type Myofascial Release,Sustained Pressure,Trigger Point Release Intensity/Depth Moderate Body Position Hooklying Comments with hip rotation passively. L hip Body Location TFL, glute mid Mobilization Type Myofascial Release Intensity/Depth Superficial Body Position Sidelying Comments pt has significant facial grimicing pain to light pressure. it decreases towards the end of session Manual Traction L hip Body Position Supine Reps/Duration 10s x8 Comments from lower thighs PT-OP-R Modalities Start: 12/30/20 14:40 Freq: Status: Active Protocol: Document 01/18/21 11:25 HH (Rec: 01/18/21 12:06 [email or web address]) Hot Pack/Cold Pack Treatment Hot Pack Location L hip Patient Position Sidelying Treatment Duration (minutes) 10 Patient Tolerance Good PT-OP-T Assessment and Plan Start: 12/30/20 14:40 Freq: Status: Active Protocol: Document 01/18/21 11:25 HH (Rec: 01/18/21 12:06 [id number]) Physical Therapy Assessment Goals RoM Impairment pt has limited hip ROM Short Term Goal (STG) pt will show improved hip extension and external rotation by 10 degrees. STG Duration 4 weeks Nursing Home Goal (LTG) pt will show improved hip extension and external rotation in order for her to amb with neutral foot and hip position LTG Duration 8 weeks pain Impairment 7/10 L hip pain Short Term Goal (STG) pt will be able to sleep on her L side without increase in L hip pain STG Duration 4 weeks Nursing Home Goal (LTG) pt will be able to walk up to 1 mile 3 times /week without increase in hip pain LTG Duration 8 weeks LEFS Impairment pt scores 25 on LEFS Short Term Goal (STG) pt will be able to show improved hip mobility and strength by scoring >35 on LEFS STG Duration 4 weeks Pull Out Operator Goal (LTG) pt will be able to show improved hip mobility and strength by scoring >50 on LEFS LTG Duration 8 weeks Assessment Summary Assessment pt reports her pain 2/10 compared to 8/10 at initial eval. She has improved gait quality and strength. Discontinue figure 4 due to pain. She also has pain and buckling episodes while climbing stairs. Will continue to focus on strengthening her hip Physical Therapy Plan Frequency and Duration Frequency of Treatment 2x/Week Duration of Treatment 8 weeks Plan of Care Start Date 12/30/20 Plan of Care End Date 02/28/21 Therapeutic Interventions Therapeutic Interventions Aquatic Therapy,Balance Training,Gait Training,Home Exercise Program,Joint Mobilizations,Manual Therapy, Neuromuscular Re-education, Patient/Caregiver Education, Self-Care/Home Management,Soft Tissue Mobilization,Taping, Therapeutic Activities, Therapeutic Exercises Modalities Cold Pack/Ice Massage,Electric Stimulation,Hot Packs, Infrared Therapy,Ultrasound Next Visit Focus/Plan Next Note Type Treatment Note Next Visit Plan figure 4 stretch traction hip extension stretchS STM
--- NOTE | 2021-01-20 11:14 | PT.OTN ---
Current Diagnoses Pain in unspecified hip (01/20/21) Physical Therapy Treatment Note PT-OP-A Visit Information Start: 12/30/20 14:40 Freq: Status: Active Protocol: Document 01/20/21 10:33 HH (Rec: 01/20/21 11:14 HH [id number]) Out-Patient Physical Therapy Visit Information Visit Information Visit Type Treatment Note Visit Start Time 10:30 Visit Stop Time 11:25 Total Visit Minutes 55 Visit Number 08/20 Number of [employer] TECHNICIAN Visits 0 PT-OP-B Current Condition Start: 12/30/20 14:40 Freq: Status: Active Protocol: Document 12/30/20 14:41 HH (Rec: 12/30/20 15:07 HH [email or web address]) Current Condition History of Current Condition Onset Date this summer Current Complaints L lateral hip pain, difficulty with walking History of Current Condition Caitie is a 70yo female here for her L lateral hip pain started this summer after completing a long course of house remodeling which involved heavy lifting. She does not recall any injury but L hip progressively kept getting sore. Her 09/10 pain locates primarily at greater trochanter. Worse with any WB activities, hip movements and sitting. She also has pain sleeping on her L side. She went to see Dr. Solorzano and her hip x-ray= WFL. She was dx with buritis and had a cortisone shot in November which lasted 2 weeks. Denies joint pain, radiating pain, tingling and numbnes. 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 Current Functional Impairments (Reported) Functional Limitations- ADL's unable to sleep on her L side Functional Limitations- Mobility/Gait unable to walk >10mins PT-OP-C Subjective Start: 12/30/20 14:40 Freq: Status: Active Protocol: Document 01/20/21 10:33 HH (Rec: 01/20/21 11:14 HH [id number]) OP-PT Subjective Patient Comments Patient Comments I was sitting a restuarant for 4 hours last night and i was so stiff to get up. By the way, Im able to sleep without much pain now. The pillow is helpful Patient Reported Progress Improving PT-OP-D Balance Start: 12/30/20 14:40 Freq: Status: Active Protocol: Document 12/30/20 14:41 HH (Rec: 12/30/20 15:07 [email or web address]) Balance Tests Single Limb Standing Single Limb- Right >30s Single Limb- Left unable PT-OP-F Manual Assessment Start: 12/30/20 14:40 Freq: Status: Active Protocol: Document 12/30/20 14:41 (Rec: 12/30/20 15:07 [email or web address]) Manual Assessments Soft Tissue Assessment Soft Tissue Mobility Assessment significant pain to light pressure at TFL, greater trochanter and glute max mild pain at IT band significant swelling noted at greater trochanter PT-OP-G Mobility & Gait Start: 12/30/20 14:40 Freq: Status: Active Protocol: Document 12/30/20 14:41 (Rec: 12/30/20 15:07 [email or web address]) OP Mobility Evaluation Transfers Sit to Stand stagger stance with push off with UEs from armrests. OP Gait Assessment Gait Deviations General Gait Pattern Antalgic,Decreased Stride Length,Decreased Feet Clearance Factors Limiting Gait Function Factors Limiting Gait Function Decreased Activity Tolerance, Decreased Strength,Limited Range of Motion,Pain,Poor Balance Comments Gait Comments pt walked with a flexed posture; lack of hip extension L>R. Toe in gait L>R; toe strike with LLE. PT-OP-H Neuro Start: 12/30/20 14:40 Freq: Status: Active Protocol: Document 12/30/20 14:41 (Rec: 12/30/20 15:07 [email or web address]) Sensation Evaluation Gross Sensation Gross Sensation WNL Deep Tendon Reflex & Clonus Assessment Deep Tendon Reflex Bilateral Achilles Deep Tendon Reflex 2+ Normal Bilateral Patellar Deep Tendon Reflex 2+ Normal PT-OP-J Posture/Palpation/Skin Start: 12/30/20 14:40 Freq: Status: Active Protocol: Document 12/30/20 14:41 (Rec: 12/30/20 15:07 [email or web address]) Posture Evaluation Position Standing Weight Distribution Weight Shifted Right Hip Posture (L) Internally Rotated,(R) Internally Rotated PT-OP-K Range of Motion Start: 12/30/20 14:40 Freq: Status: Active Protocol: Document 12/30/20 14:41 (Rec: 12/30/20 15:07 [email or web address]) Hip Goniometric Range of Motion Hip Right Active Straight Leg Raise 85 Extension 5 Internal Rotation 40 External Rotation 32 Comments passive extension with pain at lumbar spine pain at knee with both rotation Left Active Straight Leg Raise 85 Extension 0 Internal Rotation 48 External Rotation 30 Comments passive extension with pain at lumbar spine pain at knee with both rotation PT-OP-L Special Tests Start: 12/30/20 14:40 Freq: Status: Active Protocol: Document 12/30/20 14:41 HH (Rec: 12/30/20 15:07 [email or web address]) Special Tests Hip Special Tests Reggie Test Results +VE Comments pain at lumbar FADDIR Comments pain at trochanter Straight Leg Raise Test Results -ve PANCHITO Comments significant tightness at adductors Scour Test Test Results -ve PT-OP-M Strength Start: 12/30/20 14:40 Freq: Status: Active Protocol: Document 12/30/20 14:41 HH (Rec: 12/30/20 15:07 [email or web address]) Hip Strength Hip Manual Muscle Testing Right Flexion (L2) 4- Good- Extension (S1) 4- Good- Abduction 4- Good- Adduction 4- Good- Left Flexion (L2) 3+ Fair+ Extension (S1) 3+ Fair+ Abduction 3+ Fair+ Adduction 3+ Fair+ Knee Strength Knee Manual Muscle Testing Right Flexion (S2) 4 Good Extension (L3) 4 Good Left Flexion (S2) 4 Good Extension (L3) 4 Good PT-OP-Q Treatments Start: 12/30/20 14:40 Freq: Status: Active Protocol: Document 01/20/21 10:33 HH (Rec: 01/20/21 11:14 [id number]) Cardio Equipment Recumbent Bicycle Duration (Minutes) 5 Resistance 5 Gym Equipment Shuttle Recovery SL squat Resistance #50 Shuttle Recovery Platform Stable Reps/Time 15 x3 Therapeutic Exercises Supine Exercises SLR Side bilateral Reps/Minutes 8x2 Comments for HEP Sidelying Exercises hip abd Side bilateral Reps/Minutes 8x2 Comments for HEP, less range Manual Therapy Treatment Soft Tissue Mobilization L hip Body Location TFL, glute mid Mobilization Type Myofascial Release Intensity/Depth Superficial Body Position Sidelying Comments pt has significant facial grimicing pain to light pressure. it decreases towards the end of session Manual Traction L hip Body Position Supine Reps/Duration 10s x8 Comments from lower thighs PT-OP-R Modalities Start: 12/30/20 14:40 Freq: Status: Active Protocol: Document 01/20/21 10:33 HH (Rec: 01/20/21 11:14 [id number]) Hot Pack/Cold Pack Treatment Hot Pack Location L hip Patient Position Sidelying Treatment Duration (minutes) 10 Patient Tolerance Good PT-OP-T Assessment and Plan Start: 12/30/20 14:40 Freq: Status: Active Protocol: Document 01/20/21 10:33 HH (Rec: 01/20/21 11:14 [id number]) Physical Therapy Assessment Goals RoM Impairment pt has limited hip ROM Short Term Goal (STG) pt will show improved hip extension and external rotation by 10 degrees. STG Duration 4 weeks Extrusion Bender Goal (LTG) pt will show improved hip extension and external rotation in order for her to amb with neutral foot and hip position LTG Duration 8 weeks pain Impairment 7/10 L hip pain Short Term Goal (STG) pt will be able to sleep on her L side without increase in L hip pain STG Duration 4 weeks Assisted Goal (LTG) pt will be able to walk up to 1 mile 3 times /week without increase in hip pain LTG Duration 8 weeks LEFS Impairment pt scores 25 on LEFS Short Term Goal (STG) pt will be able to show improved hip mobility and strength by scoring >35 on LEFS STG Duration 4 weeks Assisted Goal (LTG) pt will be able to show improved hip mobility and strength by scoring >50 on LEFS LTG Duration 8 weeks Assessment Summary Assessment pt reports stiffness after sitting 4 hours last night. She is now able to sleep without much discomfort. Added SLR and SL hip abd for hip strengthening today. Physical Therapy Plan Frequency and Duration Frequency of Treatment 2x/Week Duration of Treatment 8 weeks Plan of Care Start Date 12/30/20 Plan of Care End Date 02/28/21 Therapeutic Interventions Therapeutic Interventions Aquatic Therapy,Balance Training,Gait Training,Home Exercise Program,Joint Mobilizations,Manual Therapy, Neuromuscular Re-education, Patient/Caregiver Education, Self-Care/Home Management,Soft Tissue Mobilization,Taping, Therapeutic Activities, Therapeutic Exercises Modalities Cold Pack/Ice Massage,Electric Stimulation,Hot Packs, Infrared Therapy,Ultrasound Next Visit Focus/Plan Next Note Type Treatment Note Next Visit Plan figure 4 stretch traction hip extension stretchS STM
--- NOTE | 2021-01-23 12:09 | PT.OTN ---
Current Diagnoses Pain in unspecified hip (01/23/21) Physical Therapy Treatment Note PT-OP-A Visit Information Start: 12/30/20 14:40 Freq: Status: Active Protocol: Document 01/23/21 10:34 HH (Rec: 01/23/21 12:09 [id number]) Out-Patient Physical Therapy Visit Information Visit Information Visit Type Treatment Note Visit Start Time 10:32 Visit Stop Time 11:25 Total Visit Minutes 53 Visit Number 09/19 Number of ERP DEVELOPER Visits 0 PT-OP-B Current Condition Start: 12/30/20 14:40 Freq: Status: Active Protocol: Document 12/30/20 14:41 HH (Rec: 12/30/20 15:07 [email or web address]) Current Condition History of Current Condition Onset Date this summer Current Complaints L lateral hip pain, difficulty with walking History of Current Condition Caitie is a 70yo female here for her L lateral hip pain started this summer after completing a long course of house remodeling which involved heavy lifting. She does not recall any injury but L hip progressively kept getting sore. Her 09/10 pain locates primarily at greater trochanter. Worse with any WB activities, hip movements and sitting. She also has pain sleeping on her L side. She went to see Dr. Solorzano and her hip x-ray= WFL. She was dx with buritis and had a cortisone shot in November which lasted 2 weeks. Denies joint pain, radiating pain, tingling and numbnes. 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 Current Functional Impairments (Reported) Functional Limitations- ADL's unable to sleep on her L side Functional Limitations- Mobility/Gait unable to walk >10mins PT-OP-C Subjective Start: 12/30/20 14:40 Freq: Status: Active Protocol: Document 01/23/21 10:34 HH (Rec: 01/23/21 12:09 [id number]) OP-PT Subjective Patient Comments Patient Comments I was doing a lot of stairs on Saturday at my niece house. I stood a lot as well. So im sore and stiff Patient Reported Progress Improving PT-OP-D Balance Start: 12/30/20 14:40 Freq: Status: Active Protocol: Document 12/30/20 14:41 HH (Rec: 12/30/20 15:07 [email or web address]) Balance Tests Single Limb Standing Single Limb- Right >30s Single Limb- Left unable PT-OP-F Manual Assessment Start: 12/30/20 14:40 Freq: Status: Active Protocol: Document 12/30/20 14:41 HH (Rec: 12/30/20 15:07 [email or web address]) Manual Assessments Soft Tissue Assessment Soft Tissue Mobility Assessment significant pain to light pressure at TFL, greater trochanter and glute max mild pain at IT band significant swelling noted at greater trochanter PT-OP-G Mobility & Gait Start: 12/30/20 14:40 Freq: Status: Active Protocol: Document 12/30/20 14:41 HH (Rec: 12/30/20 15:07 [email or web address]) OP Mobility Evaluation Transfers Sit to Stand stagger stance with push off with UEs from armrests. OP Gait Assessment Gait Deviations General Gait Pattern Antalgic,Decreased Stride Length,Decreased Feet Clearance Factors Limiting Gait Function Factors Limiting Gait Function Decreased Activity Tolerance, Decreased Strength,Limited Range of Motion,Pain,Poor Balance Comments Gait Comments pt walked with a flexed posture; lack of hip extension L>R. Toe in gait L>R; toe strike with LLE. PT-OP-H Neuro Start: 12/30/20 14:40 Freq: Status: Active Protocol: Document 12/30/20 14:41 HH (Rec: 12/30/20 15:07 [email or web address]) Sensation Evaluation Gross Sensation Gross Sensation WNL Deep Tendon Reflex & Clonus Assessment Deep Tendon Reflex Bilateral Achilles Deep Tendon Reflex 2+ Normal Bilateral Patellar Deep Tendon Reflex 2+ Normal PT-OP-J Posture/Palpation/Skin Start: 12/30/20 14:40 Freq: Status: Active Protocol: Document 12/30/20 14:41 HH (Rec: 12/30/20 15:07 [email or web address]) Posture Evaluation Position Standing Weight Distribution Weight Shifted Right Hip Posture (L) Internally Rotated,(R) Internally Rotated PT-OP-K Range of Motion Start: 12/30/20 14:40 Freq: Status: Active Protocol: Document 12/30/20 14:41 (Rec: 12/30/20 15:07 [email or web address]) Hip Goniometric Range of Motion Hip Right Active Straight Leg Raise 85 Extension 5 Internal Rotation 40 External Rotation 32 Comments passive extension with pain at lumbar spine pain at knee with both rotation Left Active Straight Leg Raise 85 Extension 0 Internal Rotation 48 External Rotation 30 Comments passive extension with pain at lumbar spine pain at knee with both rotation PT-OP-L Special Tests Start: 12/30/20 14:40 Freq: Status: Active Protocol: Document 12/30/20 14:41 HH (Rec: 12/30/20 15:07 HH [email or web address]) Special Tests Hip Special Tests Reggie Test Results +VE Comments pain at lumbar FADDIR Comments pain at trochanter Straight Leg Raise Test Results -ve PANCHITO Comments significant tightness at adductors Scour Test Test Results -ve PT-OP-M Strength Start: 12/30/20 14:40 Freq: Status: Active Protocol: Document 12/30/20 14:41 HH (Rec: 12/30/20 15:07 [email or web address]) Hip Strength Hip Manual Muscle Testing Right Flexion (L2) 4- Good- Extension (S1) 4- Good- Abduction 4- Good- Adduction 4- Good- Left Flexion (L2) 3+ Fair+ Extension (S1) 3+ Fair+ Abduction 3+ Fair+ Adduction 3+ Fair+ Knee Strength Knee Manual Muscle Testing Right Flexion (S2) 4 Good Extension (L3) 4 Good Left Flexion (S2) 4 Good Extension (L3) 4 Good PT-OP-Q Treatments Start: 12/30/20 14:40 Freq: Status: Active Protocol: Document 01/23/21 10:34 HH (Rec: 01/23/21 12:09 [id number]) Cardio Equipment Recumbent Bicycle Duration (Minutes) 7 Resistance 5 Gym Equipment Shuttle Recovery SL squat Resistance #50 Shuttle Recovery Platform Stable Reps/Time 15 x3 Therapeutic Exercises Supine Exercises SLR Side bilateral Reps/Minutes 10 x2 Comments for HEP, slight discomfort at end range reggie stretch Reps/Minutes 30s x 5 Comments for HEP Sidelying Exercises hip abd Side bilateral Reps/Minutes 8x2 Comments for HEP, less range Manual Therapy Treatment Soft Tissue Mobilization L hip Body Location TFL, glute mid Mobilization Type Myofascial Release Intensity/Depth Superficial Body Position Sidelying Comments pt has significant facial grimicing pain to light pressure. it decreases towards the end of session Manual Traction L hip Details inferior and posterior Body Position Supine Reps/Duration 10s x8 Comments from lower thighs PT-OP-R Modalities Start: 12/30/20 14:40 Freq: Status: Active Protocol: Document 01/23/21 10:34 (Rec: 01/23/21 12:09 [id number]) Hot Pack/Cold Pack Treatment Hot Pack Location L hip Patient Position Sidelying Treatment Duration (minutes) 13 Patient Tolerance Good PT-OP-T Assessment and Plan Start: 12/30/20 14:40 Freq: Status: Active Protocol: Document 01/23/21 10:34 (Rec: 01/23/21 12:09 [id number]) Physical Therapy Assessment Goals RoM Impairment pt has limited hip ROM Short Term Goal (STG) pt will show improved hip extension and external rotation by 10 degrees. STG Duration 4 weeks Ramp Lead Goal (LTG) pt will show improved hip extension and external rotation in order for her to amb with neutral foot and hip position LTG Duration 8 weeks pain Impairment 7/10 L hip pain Short Term Goal (STG) pt will be able to sleep on her L side without increase in L hip pain STG Duration 4 weeks Ramp Lead Goal (LTG) pt will be able to walk up to 1 mile 3 times /week without increase in hip pain LTG Duration 8 weeks LEFS Impairment pt scores 25 on LEFS Short Term Goal (STG) pt will be able to show improved hip mobility and strength by scoring >35 on LEFS STG Duration 4 weeks [facility] Goal (LTG) pt will be able to show improved hip mobility and strength by scoring >50 on LEFS LTG Duration 8 weeks Assessment Summary Assessment Pt reports stiffness and pain after standing and climbing lots of stairs on saturday but she certainly felt she is getting well with better strength and mobility. will focus on more functional strengthening ex next visit such as squatting and stair climbing Physical Therapy Plan Frequency and Duration Frequency of Treatment 2x/Week Duration of Treatment 8 weeks Plan of Care Start Date 12/30/20 Plan of Care End Date 02/28/21 Therapeutic Interventions Therapeutic Interventions Aquatic Therapy,Balance Training,Gait Training,Home Exercise Program,Joint Mobilizations,Manual Therapy, Neuromuscular Re-education, Patient/Caregiver Education, Self-Care/Home Management,Soft Tissue Mobilization,Taping, Therapeutic Activities, Therapeutic Exercises Modalities Cold Pack/Ice Massage,Electric Stimulation,Hot Packs, Infrared Therapy,Ultrasound Next Visit Focus/Plan Next Note Type Treatment Note Next Visit Plan figure 4 stretch traction hip extension stretchS STM
--- NOTE | 2021-01-25 11:22 | PT.OTN ---
Current Diagnoses Pain in unspecified hip (01/25/21) Physical Therapy Treatment Note PT-OP-A Visit Information Start: 12/30/20 14:40 Freq: Status: Active Protocol: Document 01/25/21 10:34 HH (Rec: 01/25/21 11:22 [id number]) Out-Patient Physical Therapy Visit Information Visit Information Visit Type Treatment Note Visit Start Time 10:32 Visit Stop Time 11:25 Total Visit Minutes 53 Visit Number 10/20 Number of VITREO RETINAL SURGEON Visits 0 PT-OP-B Current Condition Start: 12/30/20 14:40 Freq: Status: Active Protocol: Document 12/30/20 14:41 HH (Rec: 12/30/20 15:07 [email or web address]) Current Condition History of Current Condition Onset Date this summer Current Complaints L lateral hip pain, difficulty with walking History of Current Condition Caitie is a 70yo female here for her L lateral hip pain started this summer after completing a long course of house remodeling which involved heavy lifting. She does not recall any injury but L hip progressively kept getting sore. Her 09/10 pain locates primarily at greater trochanter. Worse with any WB activities, hip movements and sitting. She also has pain sleeping on her L side. She went to see Dr. Solorzano and her hip x-ray= WFL. She was dx with buritis and had a cortisone shot in November which lasted 2 weeks. Denies joint pain, radiating pain, tingling and numbnes. 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 Current Functional Impairments (Reported) Functional Limitations- ADL's unable to sleep on her L side Functional Limitations- Mobility/Gait unable to walk >10mins PT-OP-C Subjective Start: 12/30/20 14:40 Freq: Status: Active Protocol: Document 01/25/21 10:34 HH (Rec: 01/25/21 11:22 [id number]) OP-PT Subjective Patient Comments Patient Comments I am still recovering from last saturday doing stairs. Patient Reported Progress Same PT-OP-D Balance Start: 12/30/20 14:40 Freq: Status: Active Protocol: Document 12/30/20 14:41 HH (Rec: 12/30/20 15:07 [email or web address]) Balance Tests Single Limb Standing Single Limb- Right >30s Single Limb- Left unable PT-OP-F Manual Assessment Start: 12/30/20 14:40 Freq: Status: Active Protocol: Document 12/30/20 14:41 HH (Rec: 12/30/20 15:07 [email or web address]) Manual Assessments Soft Tissue Assessment Soft Tissue Mobility Assessment significant pain to light pressure at TFL, greater trochanter and glute max mild pain at IT band significant swelling noted at greater trochanter PT-OP-G Mobility & Gait Start: 12/30/20 14:40 Freq: Status: Active Protocol: Document 12/30/20 14:41 HH (Rec: 12/30/20 15:07 [email or web address]) OP Mobility Evaluation Transfers Sit to Stand stagger stance with push off with UEs from armrests. OP Gait Assessment Gait Deviations General Gait Pattern Antalgic,Decreased Stride Length,Decreased Feet Clearance Factors Limiting Gait Function Factors Limiting Gait Function Decreased Activity Tolerance, Decreased Strength,Limited Range of Motion,Pain,Poor Balance Comments Gait Comments pt walked with a flexed posture; lack of hip extension L>R. Toe in gait L>R; toe strike with LLE. PT-OP-H Neuro Start: 12/30/20 14:40 Freq: Status: Active Protocol: Document 12/30/20 14:41 HH (Rec: 12/30/20 15:07 [email or web address]) Sensation Evaluation Gross Sensation Gross Sensation WNL Deep Tendon Reflex & Clonus Assessment Deep Tendon Reflex Bilateral Achilles Deep Tendon Reflex 2+ Normal Bilateral Patellar Deep Tendon Reflex 2+ Normal PT-OP-J Posture/Palpation/Skin Start: 12/30/20 14:40 Freq: Status: Active Protocol: Document 12/30/20 14:41 (Rec: 12/30/20 15:07 [email or web address]) Posture Evaluation Position Standing Weight Distribution Weight Shifted Right Hip Posture (L) Internally Rotated,(R) Internally Rotated PT-OP-K Range of Motion Start: 12/30/20 14:40 Freq: Status: Active Protocol: Document 12/30/20 14:41 HH (Rec: 12/30/20 15:07 [email or web address]) Hip Goniometric Range of Motion Hip Right Active Straight Leg Raise 85 Extension 5 Internal Rotation 40 External Rotation 32 Comments passive extension with pain at lumbar spine pain at knee with both rotation Left Active Straight Leg Raise 85 Extension 0 Internal Rotation 48 External Rotation 30 Comments passive extension with pain at lumbar spine pain at knee with both rotation PT-OP-L Special Tests Start: 12/30/20 14:40 Freq: Status: Active Protocol: Document 12/30/20 14:41 HH (Rec: 12/30/20 15:07 [email or web address]) Special Tests Hip Special Tests Reggie Test Results +VE Comments pain at lumbar FADDIR Comments pain at trochanter Straight Leg Raise Test Results -ve PANCHITO Comments significant tightness at adductors Scour Test Test Results -ve PT-OP-M Strength Start: 12/30/20 14:40 Freq: Status: Active Protocol: Document 12/30/20 14:41 HH (Rec: 12/30/20 15:07 [email or web address]) Hip Strength Hip Manual Muscle Testing Right Flexion (L2) 4- Good- Extension (S1) 4- Good- Abduction 4- Good- Adduction 4- Good- Left Flexion (L2) 3+ Fair+ Extension (S1) 3+ Fair+ Abduction 3+ Fair+ Adduction 3+ Fair+ Knee Strength Knee Manual Muscle Testing Right Flexion (S2) 4 Good Extension (L3) 4 Good Left Flexion (S2) 4 Good Extension (L3) 4 Good PT-OP-Q Treatments Start: 12/30/20 14:40 Freq: Status: Active Protocol: Document 01/25/21 10:34 HH (Rec: 01/25/21 11:22 [id number]) Cardio Equipment Recumbent Bicycle Duration (Minutes) 7 Resistance 5 Gym Equipment Shuttle Recovery SL squat Resistance #50 Shuttle Recovery Platform Stable Reps/Time 15 x3 Therapeutic Exercises Supine Exercises SLR Side bilateral Reps/Minutes 10 x2 Comments for HEP, slight discomfort at end range Sidelying Exercises hip abd Side bilateral Reps/Minutes 8x2 Comments for HEP, less range compared to R clamshell Reps/Minutes 10x2 Comments for HEP Standing Exercises step up Standing Exercise Name 4 then 6 Side left Comments pain subside after repetitions , for HEP Manual Therapy Treatment Soft Tissue Mobilization L hip Body Location TFL, glute mid Mobilization Type Myofascial Release Intensity/Depth Superficial Body Position Sidelying Comments pt has can yonatan moderate pressure. less pain at TFL Manual Traction L hip Details inferior and posterior Body Position Supine Reps/Duration 10s x8 Comments from lower thighs PT-OP-R Modalities Start: 12/30/20 14:40 Freq: Status: Active Protocol: Document 01/25/21 10:34 (Rec: 01/25/21 11:22 [id number]) Hot Pack/Cold Pack Treatment Hot Pack Location L hip Patient Position Sidelying Treatment Duration (minutes) 10 Patient Tolerance Good PT-OP-T Assessment and Plan Start: 12/30/20 14:40 Freq: Status: Active Protocol: Document 01/25/21 10:34 (Rec: 01/25/21 11:22 [id number]) Physical Therapy Assessment Goals RoM Impairment pt has limited hip ROM Short Term Goal (STG) pt will show improved hip extension and external rotation by 10 degrees. STG Duration 4 weeks Shelter Goal (LTG) pt will show improved hip extension and external rotation in order for her to amb with neutral foot and hip position LTG Duration 8 weeks pain Impairment 7/10 L hip pain Short Term Goal (STG) pt will be able to sleep on her L side without increase in L hip pain STG Duration 4 weeks Shelter Goal (LTG) pt will be able to walk up to 1 mile 3 times /week without increase in hip pain LTG Duration 8 weeks LEFS Impairment pt scores 25 on LEFS Short Term Goal (STG) pt will be able to show improved hip mobility and strength by scoring >35 on LEFS STG Duration 4 weeks Shelter Goal (LTG) pt will be able to show improved hip mobility and strength by scoring >50 on LEFS LTG Duration 8 weeks Assessment Summary Assessment pt reports soreness today but not painful. Added 4 step up today and she felt better after a series of open chain ex . Recommended her to look into doing pool ex / sign up for gym membership for maintainence Physical Therapy Plan Frequency and Duration Frequency of Treatment 2x/Week Duration of Treatment 8 weeks Plan of Care Start Date 12/30/20 Plan of Care End Date 02/28/21 Therapeutic Interventions Therapeutic Interventions Aquatic Therapy,Balance Training,Gait Training,Home Exercise Program,Joint Mobilizations,Manual Therapy, Neuromuscular Re-education, Patient/Caregiver Education, Self-Care/Home Management,Soft Tissue Mobilization,Taping, Therapeutic Activities, Therapeutic Exercises Modalities Cold Pack/Ice Massage,Electric Stimulation,Hot Packs, Infrared Therapy,Ultrasound Next Visit Focus/Plan Next Note Type Treatment Note Next Visit Plan figure 4 stretch traction hip extension stretchS STM
--- NOTE | 2021-02-01 12:06 | PT.OTN ---
Current Diagnoses Pain in unspecified hip (02/01/21) Physical Therapy Treatment Note PT-OP-A Visit Information Start: 12/30/20 14:40 Freq: Status: Active Protocol: Document 02/01/21 11:25 HH (Rec: 02/01/21 12:04 [id number]) Out-Patient Physical Therapy Visit Information Visit Information Visit Type Treatment Note Visit Start Time 11:18 Visit Stop Time 12:12 Total Visit Minutes 54 Visit Number 11/20 Number of BELT FIXER Visits 0 PT-OP-B Current Condition Start: 12/30/20 14:40 Freq: Status: Active Protocol: Document 12/30/20 14:41 HH (Rec: 12/30/20 15:07 HH [email or web address]) Current Condition History of Current Condition Onset Date this summer Current Complaints L lateral hip pain, difficulty with walking History of Current Condition Caitie is a 70yo female here for her L lateral hip pain started this summer after completing a long course of house remodeling which involved heavy lifting. She does not recall any injury but L hip progressively kept getting sore. Her 09/10 pain locates primarily at greater trochanter. Worse with any WB activities, hip movements and sitting. She also has pain sleeping on her L side. She went to see Dr. Solorzano and her hip x-ray= WFL. She was dx with buritis and had a cortisone shot in November which lasted 2 weeks. Denies joint pain, radiating pain, tingling and numbnes. 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 Current Functional Impairments (Reported) Functional Limitations- ADL's unable to sleep on her L side Functional Limitations- Mobility/Gait unable to walk >10mins PT-OP-C Subjective Start: 12/30/20 14:40 Freq: Status: Active Protocol: Document 02/01/21 11:25 HH (Rec: 02/01/21 12:04 [id number]) OP-PT Subjective Patient Comments Patient Comments I feel really good for the past two days. I noticed that because I went shopping and walked for a long time. It didnt hurt as bad. Patient Reported Progress Improving PT-OP-D Balance Start: 12/30/20 14:40 Freq: Status: Active Protocol: Document 12/30/20 14:41 HH (Rec: 12/30/20 15:07 HH [email or web address]) Balance Tests Single Limb Standing Single Limb- Right >30s Single Limb- Left unable PT-OP-F Manual Assessment Start: 12/30/20 14:40 Freq: Status: Active Protocol: Document 12/30/20 14:41 HH (Rec: 12/30/20 15:07 [email or web address]) Manual Assessments Soft Tissue Assessment Soft Tissue Mobility Assessment significant pain to light pressure at TFL, greater trochanter and glute max mild pain at IT band significant swelling noted at greater trochanter PT-OP-G Mobility & Gait Start: 12/30/20 14:40 Freq: Status: Active Protocol: Document 12/30/20 14:41 HH (Rec: 12/30/20 15:07 [email or web address]) OP Mobility Evaluation Transfers Sit to Stand stagger stance with push off with UEs from armrests. OP Gait Assessment Gait Deviations General Gait Pattern Antalgic,Decreased Stride Length,Decreased Feet Clearance Factors Limiting Gait Function Factors Limiting Gait Function Decreased Activity Tolerance, Decreased Strength,Limited Range of Motion,Pain,Poor Balance Comments Gait Comments pt walked with a flexed posture; lack of hip extension L>R. Toe in gait L>R; toe strike with LLE. PT-OP-H Neuro Start: 12/30/20 14:40 Freq: Status: Active Protocol: Document 12/30/20 14:41 HH (Rec: 12/30/20 15:07 [email or web address]) Sensation Evaluation Gross Sensation Gross Sensation WNL Deep Tendon Reflex & Clonus Assessment Deep Tendon Reflex Bilateral Achilles Deep Tendon Reflex 2+ Normal Bilateral Patellar Deep Tendon Reflex 2+ Normal PT-OP-J Posture/Palpation/Skin Start: 12/30/20 14:40 Freq: Status: Active Protocol: Document 12/30/20 14:41 HH (Rec: 12/30/20 15:07 [email or web address]) Posture Evaluation Position Standing Weight Distribution Weight Shifted Right Hip Posture (L) Internally Rotated,(R) Internally Rotated PT-OP-K Range of Motion Start: 12/30/20 14:40 Freq: Status: Active Protocol: Document 12/30/20 14:41 HH (Rec: 12/30/20 15:07 [email or web address]) Hip Goniometric Range of Motion Hip Right Active Straight Leg Raise 85 Extension 5 Internal Rotation 40 External Rotation 32 Comments passive extension with pain at lumbar spine pain at knee with both rotation Left Active Straight Leg Raise 85 Extension 0 Internal Rotation 48 External Rotation 30 Comments passive extension with pain at lumbar spine pain at knee with both rotation PT-OP-L Special Tests Start: 12/30/20 14:40 Freq: Status: Active Protocol: Document 12/30/20 14:41 HH (Rec: 12/30/20 15:07 [email or web address]) Special Tests Hip Special Tests Reggie Test Results +VE Comments pain at lumbar FADDIR Comments pain at trochanter Straight Leg Raise Test Results -ve PANCHITO Comments significant tightness at adductors Scour Test Test Results -ve PT-OP-M Strength Start: 12/30/20 14:40 Freq: Status: Active Protocol: Document 12/30/20 14:41 HH (Rec: 12/30/20 15:07 [email or web address]) Hip Strength Hip Manual Muscle Testing Right Flexion (L2) 4- Good- Extension (S1) 4- Good- Abduction 4- Good- Adduction 4- Good- Left Flexion (L2) 3+ Fair+ Extension (S1) 3+ Fair+ Abduction 3+ Fair+ Adduction 3+ Fair+ Knee Strength Knee Manual Muscle Testing Right Flexion (S2) 4 Good Extension (L3) 4 Good Left Flexion (S2) 4 Good Extension (L3) 4 Good PT-OP-Q Treatments Start: 12/30/20 14:40 Freq: Status: Active Protocol: Document 02/01/21 11:25 HH (Rec: 02/01/21 12:04 [id number]) Cardio Equipment Recumbent Bicycle Duration (Minutes) 7 Resistance 5 Gym Equipment Shuttle Recovery SL squat Resistance #50 Shuttle Recovery Platform Stable Reps/Time 15 x3 Therapeutic Exercises Sidelying Exercises hip abd Side bilateral Reps/Minutes 8x2 Comments for HEP, less range compared to R Standing Exercises hip flexor stretch Side bilateral Reps/Minutes 10 x2 Comments for HEP standing hip abd Side bilateral Reps/Minutes 10 x2 step up Standing Exercise Name 4 then 6 Side left Comments pain subside after repetitions , for HEP Manual Therapy Treatment Manual Traction L hip Details inferior and posterior Body Position Supine Reps/Duration 10s x8 Comments from lower thighs PT-OP-R Modalities Start: 12/30/20 14:40 Freq: Status: Active Protocol: Document 02/01/21 11:25 HH (Rec: 02/01/21 12:04 [id number]) Hot Pack/Cold Pack Treatment Hot Pack Location L hip Patient Position Sidelying Treatment Duration (minutes) 10 Patient Tolerance Good PT-OP-T Assessment and Plan Start: 12/30/20 14:40 Freq: Status: Active Protocol: Document 02/01/21 11:25 (Rec: 02/01/21 12:04 [id number]) Physical Therapy Assessment Goals RoM Impairment pt has limited hip ROM Short Term Goal (STG) pt will show improved hip extension and external rotation by 10 degrees. STG Duration 4 weeks Freight Tallier Goal (LTG) pt will show improved hip extension and external rotation in order for her to amb with neutral foot and hip position LTG Duration 8 weeks pain Impairment 7/10 L hip pain Short Term Goal (STG) pt will be able to sleep on her L side without increase in L hip pain STG Duration 4 weeks [facility] Goal (LTG) pt will be able to walk up to 1 mile 3 times /week without increase in hip pain LTG Duration 8 weeks LEFS Impairment pt scores 25 on LEFS Short Term Goal (STG) pt will be able to show improved hip mobility and strength by scoring >35 on LEFS STG Duration 4 weeks Freight Tallier Goal (LTG) pt will be able to show improved hip mobility and strength by scoring >50 on LEFS LTG Duration 8 weeks Assessment Summary Assessment Pt reports noticeable improved pain and activity tolerance. Pt has been compliant on HEP and good self pain management. Physical Therapy Plan Frequency and Duration Frequency of Treatment 2x/Week Duration of Treatment 8 weeks Plan of Care Start Date 12/30/20 Plan of Care End Date 02/28/21 Therapeutic Interventions Therapeutic Interventions Aquatic Therapy,Balance Training,Gait Training,Home Exercise Program,Joint Mobilizations,Manual Therapy, Neuromuscular Re-education, Patient/Caregiver Education, Self-Care/Home Management,Soft Tissue Mobilization,Taping, Therapeutic Activities, Therapeutic Exercises Modalities Cold Pack/Ice Massage,Electric Stimulation,Hot Packs, Infrared Therapy,Ultrasound Next Visit Focus/Plan Next Note Type Treatment Note Next Visit Plan figure 4 stretch traction hip extension stretchS STM
--- NOTE | 2021-02-06 14:31 | PT.OTN ---
Current Diagnoses Pain in unspecified hip (02/06/21) Physical Therapy Treatment Note PT-OP-A Visit Information Start: 12/30/20 14:40 Freq: Status: Active Protocol: Document 02/06/21 13:49 HH (Rec: 02/06/21 14:31 [id number]) Out-Patient Physical Therapy Visit Information Visit Information Visit Type Discharge Summary Visit Start Time 13:46 Visit Stop Time 14:40 Total Visit Minutes 54 Visit Number 12/20 Number of STUDENT ACTIVITIES DIRECTOR Visits 0 PT-OP-B Current Condition Start: 12/30/20 14:40 Freq: Status: Active Protocol: Document 12/30/20 14:41 HH (Rec: 12/30/20 15:07 [email or web address]) Current Condition History of Current Condition Onset Date this summer Current Complaints L lateral hip pain, difficulty with walking History of Current Condition Caitie is a 70yo female here for her L lateral hip pain started this summer after completing a long course of house remodeling which involved heavy lifting. She does not recall any injury but L hip progressively kept getting sore. Her 09/10 pain locates primarily at greater trochanter. Worse with any WB activities, hip movements and sitting. She also has pain sleeping on her L side. She went to see Dr. Solorzano and her hip x-ray= WFL. She was dx with buritis and had a cortisone shot in November which lasted 2 weeks. Denies joint pain, radiating pain, tingling and numbnes. 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 Current Functional Impairments (Reported) Functional Limitations- ADL's unable to sleep on her L side Functional Limitations- Mobility/Gait unable to walk >10mins PT-OP-C Subjective Start: 12/30/20 14:40 Freq: Status: Active Protocol: Document 02/06/21 13:49 HH (Rec: 02/06/21 14:31 [id number]) OP-PT Subjective Patient Comments Patient Comments My hip consistently feels good if i do stretches before I sleep. Im doing better with stairs now without much pain. Patient Reported Progress Improving Patient Questionnaires Lower Extremity Functional Scale LEFS Score 38 LEFS Impairment 40 to 59% Impaired (Score 32- 47) PT-OP-D Balance Start: 12/30/20 14:40 Freq: Status: Active Protocol: Document 12/30/20 14:41 HH (Rec: 12/30/20 15:07 [email or web address]) Balance Tests Single Limb Standing Single Limb- Right >30s Single Limb- Left unable PT-OP-F Manual Assessment Start: 12/30/20 14:40 Freq: Status: Active Protocol: Document 12/30/20 14:41 HH (Rec: 12/30/20 15:07 [email or web address]) Manual Assessments Soft Tissue Assessment Soft Tissue Mobility Assessment significant pain to light pressure at TFL, greater trochanter and glute max mild pain at IT band significant swelling noted at greater trochanter PT-OP-G Mobility & Gait Start: 12/30/20 14:40 Freq: Status: Active Protocol: Document 12/30/20 14:41 HH (Rec: 12/30/20 15:07 [email or web address]) OP Mobility Evaluation Transfers Sit to Stand stagger stance with push off with UEs from armrests. OP Gait Assessment Gait Deviations General Gait Pattern Antalgic,Decreased Stride Length,Decreased Feet Clearance Factors Limiting Gait Function Factors Limiting Gait Function Decreased Activity Tolerance, Decreased Strength,Limited Range of Motion,Pain,Poor Balance Comments Gait Comments pt walked with a flexed posture; lack of hip extension L>R. Toe in gait L>R; toe strike with LLE. PT-OP-H Neuro Start: 12/30/20 14:40 Freq: Status: Active Protocol: Document 12/30/20 14:41 HH (Rec: 12/30/20 15:07 [email or web address]) Sensation Evaluation Gross Sensation Gross Sensation WNL Deep Tendon Reflex & Clonus Assessment Deep Tendon Reflex Bilateral Achilles Deep Tendon Reflex 2+ Normal Bilateral Patellar Deep Tendon Reflex 2+ Normal PT-OP-J Posture/Palpation/Skin Start: 12/30/20 14:40 Freq: Status: Active Protocol: Document 12/30/20 14:41 HH (Rec: 12/30/20 15:07 [email or web address]) Posture Evaluation Position Standing Weight Distribution Weight Shifted Right Hip Posture (L) Internally Rotated,(R) Internally Rotated PT-OP-K Range of Motion Start: 12/30/20 14:40 Freq: Status: Active Protocol: Document 12/30/20 14:41 HH (Rec: 12/30/20 15:07 [email or web address]) Hip Goniometric Range of Motion Hip Right Active Straight Leg Raise 85 Extension 5 Internal Rotation 40 External Rotation 32 Comments passive extension with pain at lumbar spine pain at knee with both rotation Left Active Straight Leg Raise 85 Extension 0 Internal Rotation 48 External Rotation 30 Comments passive extension with pain at lumbar spine pain at knee with both rotation PT-OP-L Special Tests Start: 12/30/20 14:40 Freq: Status: Active Protocol: Document 12/30/20 14:41 HH (Rec: 12/30/20 15:07 [email or web address]) Special Tests Hip Special Tests Reggie Test Results +VE Comments pain at lumbar FADDIR Comments pain at trochanter Straight Leg Raise Test Results -ve PANCHITO Comments significant tightness at adductors Scour Test Test Results -ve PT-OP-M Strength Start: 12/30/20 14:40 Freq: Status: Active Protocol: Document 12/30/20 14:41 HH (Rec: 12/30/20 15:07 [email or web address]) Hip Strength Hip Manual Muscle Testing Right Flexion (L2) 4- Good- Extension (S1) 4- Good- Abduction 4- Good- Adduction 4- Good- Left Flexion (L2) 3+ Fair+ Extension (S1) 3+ Fair+ Abduction 3+ Fair+ Adduction 3+ Fair+ Knee Strength Knee Manual Muscle Testing Right Flexion (S2) 4 Good Extension (L3) 4 Good Left Flexion (S2) 4 Good Extension (L3) 4 Good PT-OP-Q Treatments Start: 12/30/20 14:40 Freq: Status: Active Protocol: Document 02/06/21 13:49 HH (Rec: 02/06/21 14:31 [id number]) Cardio Equipment Recumbent Bicycle Duration (Minutes) 7 Resistance 5 Gym Equipment Shuttle Recovery SL squat Resistance #50 Shuttle Recovery Platform Stable Reps/Time 15 x3 Therapeutic Exercises Sidelying Exercises hip abd Side bilateral Reps/Minutes 8x2 Comments for HEP, less range compared to R Standing Exercises standing hip abd Side bilateral Reps/Minutes 10 x2 step up Standing Exercise Name 4 then 6 Side left Comments no discomfort. Manual Therapy Treatment Manual Traction L hip Details inferior and posterior Body Position Supine Reps/Duration 10s x8 Comments from lower thighs PT-OP-R Modalities Start: 12/30/20 14:40 Freq: Status: Active Protocol: Document 02/06/21 13:49 HH (Rec: 02/06/21 14:31 [id number]) Hot Pack/Cold Pack Treatment Hot Pack Location L hip Patient Position Sidelying Treatment Duration (minutes) 10 Patient Tolerance Good PT-OP-T Assessment and Plan Start: 12/30/20 14:40 Freq: Status: Active Protocol: Document 02/06/21 13:49 (Rec: 02/06/21 14:31 [id number]) Physical Therapy Assessment Goals RoM Impairment pt has limited hip ROM Short Term Goal (STG) pt will show improved hip extension and external rotation by 10 degrees. STG Duration 4 weeks Assisted Goal (LTG) pt will show improved hip extension and external rotation in order for her to amb with neutral foot and hip position LTG Duration 8 weeks pain Impairment 7/10 L hip pain Short Term Goal (STG) pt will be able to sleep on her L side without increase in L hip pain STG Duration 4 weeks Radiology Transporter Goal (LTG) 12/6 pt will be able to walk up to 1 mile 3 times /week without increase in hip pain LTG Duration 8 weeks LEFS Impairment pt scores 25 on LEFS Short Term Goal (STG) 12.6 goal met pt scores 38/50 today pt will be able to show improved hip mobility and strength by scoring >35 on LEFS STG Duration 4 weeks Assisted Goal (LTG) pt will be able to show improved hip mobility and strength by scoring >50 on LEFS LTG Duration 8 weeks Assessment Summary Assessment Pt reports significant improvements since evaluation. She has good understanding of pain management and overall progression of her HEP. Pt is pleased with her progress and agreed to be DC from PT today. Physical Therapy Plan Frequency and Duration Frequency of Treatment 2x/Week Duration of Treatment 8 weeks Plan of Care Start Date 12/30/20 Plan of Care End Date 02/28/21 Therapeutic Interventions Therapeutic Interventions Aquatic Therapy,Balance Training,Gait Training,Home Exercise Program,Joint Mobilizations,Manual Therapy, Neuromuscular Re-education, Patient/Caregiver Education, Self-Care/Home Management,Soft Tissue Mobilization,Taping, Therapeutic Activities, Therapeutic Exercises Modalities Cold Pack/Ice Massage,Electric Stimulation,Hot Packs, Infrared Therapy,Ultrasound Next Visit Focus/Plan Next Note Type Treatment Note Next Visit Plan figure 4 stretch traction hip extension stretchS STM
== END 2021-04-04 08:57 ==
LOC: PHYS 13:45
PROVIDERS: Family Provider Internal Medicine Endocrinology, Diabetes & Metabolism; PCP Internal Medicine; Referring Provider Orthopaedic Surgery; Visit Provider Orthopaedic Surgery
DX: M25.559 Pain in unspecified hip (principal)
CPT/HCPCS: 97110; 97116; 97140; 97162

== ENCOUNTER 2021-09-08 13:00 | Outpatient (RCR) | payer MEDICARE, OTHER, SELFPAY ==
--- NOTE | 2021-05-18 16:23 | PT.OPPOC ---
Physical, Occupational & Speech Therapy At [facility] Current Diagnoses Rheumatoid arthritis without rheumatoid factor, unspecified site (05/18/21) Unspecified acquired deformity of hand, unspecified hand (05/18/21) Muscle weakness (generalized) (05/18/21) Visit Care Team Role Provider Type Mica Pace MD Family Provider Non-Staff Primary Care Provider Specialty: Internal Medicine Address: [address] [place] [address], [id number] Email: Fabien Saucedo PA-C Attending Provider Non-Staff Referring Provider Specialty: Medical Address: [address] [place] [address], [id number] Email: Plan Of Care PT-OP-T Assessment and Plan Start: 05/16/21 16:28 Freq: Status: Active Protocol: Document 05/18/21 14:36 LRN (Rec: 05/18/21 17:39 [email or web address] [id number]) Physical Therapy Assessment Rehab Potential Rehabilitation Potential Good Evaluation Complexity Number of Personal Factors/Comorbidities 1-2 Number of Body Systems Impaired 4 or More Clinical Presentation at Evaluation Evolving Impairments Impairments Activity Tolerance,Pain,ROM, Strength Goals Three Impairment Rebecca hand pain Impairment Rebecca hand pain rated 5-6/10 non -stop burning pain all the time unless submerging hand in hot water (pain relief 1 hr). Short Term Goal (STG) Improve optical coating technician strength with pt able to drive greater than 5' with one hand before onset of pain, numbness and tingling in the hand. STG Duration 06/29/21 Intermediate Goal (LTG) Decrease rebecca hand pain to to no greater than 3/5 at rest. LTG Duration 07/17/21 Two Impairment Decreased rebecca hand mobility Short Term Goal (STG) Increase finger mobility with pt able to open small jar lids with mild difficulty. STG Duration 06/22/21 Staff Technologist Goal (LTG) Pt able to write more than a couple sentences before having to stop and shake her hands and without numbness and tingling. LTG Duration 07/17/21 One Impairment Lacks appropriate self care HEP Short Term Goal (STG) Pt will be educated in wrist strengthening ex's. STG Duration 06/02/21 Intermediate Goal (LTG) Pt will be independent in a self care HEP of finger ROM and strengthening ex's. LTG Duration 07/17/21 Assessment Summary Assessment Pt presents with mechanical and soft tissue dysfunction of joints of the fingers and thumbs of both hands due to rheumatoid arthritis, limiting function due to decreased mobility and pain at the DIP & PIP joints of thumb and digits 2-5. The pt has considerable deformity of the index fingers bilaterally and at the PIP & DIP jts of the hands; therefore return to normal mobility is not expected, but the pt will benefit from skilled physical therapy to return the pt to her prior level of functional use of her hands while progressing on a home program. We will work towards achieving the above stated goals. Physical Therapy Plan Frequency and Duration Frequency of Treatment 1x/Week Plan of Care Start Date 05/18/21 Plan of Care End Date 07/17/21 Therapeutic Interventions Therapeutic Interventions Home Exercise Program,Manual Therapy,Patient/Caregiver Education,Self-Care/Home Management,Taping,Therapeutic Exercises Modalities Cold Pack/Ice Massage,Hot Packs,Paraffin Bath,Ultrasound Next Visit Focus/Plan Next Note Type Treatment Note Next Visit Plan Review contrast bath self care treatment. Check wrist ROM/strength. Check AROM of fingers (AD/AB) and optical coating technician strength of hands bilaterally. ROM bilateral hands: PIP, DIP and to a lesser degree MCP joints. Strength bilateral hands: intrinsic and finger flexor/ extensor strengthening, Wrist strengthening. Pain management: Educate pt in joint protection and ROM/ strengthening as tolerated of hand. Modalities: Paraffin Dip, MH, US to wrist flexors/extensors , thenar eminence if pain. Plan of Care Dates Plan of Care Start Date 05/18/21 Plan of Care End Date 07/17/21 Electronically Signed by: Nori Duncan, PT 05/19/21 8201 Please Sign and Return: I have reviewed this Plan of Care and certify that the skilled therapy services above are required to meet the patient?s needs. Physician Signature Date Printed Name and Credentials Clinical Instructor Signature Printed Name and Credentials
--- NOTE | 2021-05-18 16:23 | PT.OIE ---
Current Diagnoses Rheumatoid arthritis without rheumatoid factor, unspecified site (05/18/21) Unspecified acquired deformity of hand, unspecified hand (05/18/21) Muscle weakness (generalized) (05/18/21) Visit Care Team Role Provider Type Mica Pace MD Family Provider Non-Staff Primary Care Provider Specialty: Internal Medicine Address: [address] [address], [address] Email: Fabien Saucedo PA-C Attending Provider Non-Staff Referring Provider Specialty: Medical Address: [address] [place] [address], [place], [address] Email: Physical Therapy Initial Evaluation PT-OP-A Visit Information Start: 05/16/21 16:28 Freq: Status: Active Protocol: Document 05/18/21 14:36 LRN (Rec: 05/18/21 17:39 LRN [id number]) Out-Patient Physical Therapy Visit Information Visit Information Visit Type Initial Evaluation Visit Start Time 14:36 Visit Stop Time 15:23 Total Visit Minutes 47 Visit Number 1 Evaluation Information Evaluation Date 05/18/21 Precautions Precautions R hand dominant, but naturally was L hand dominant. History of Breast cancer (x2 and several surgeries) Somewhat controlled HBP (~130/ ~80), neck pain from old whiiplash. PT-OP-B Current Condition Start: 05/16/21 16:28 Freq: Status: Active Protocol: Document 05/18/21 14:36 LRN (Rec: 05/18/21 17:39 LRN [id number]) Current Condition History of Current Condition Onset Date 2 months ago Current Complaints Pain in all the hand joints. History of Current Condition Went off handful of IBP and still taking 5 mg of prednisone and now has more pain in both hands. Having lack of mobility and strength because hands are stiff. Prior Treatments and Tests Prednisone for 20 yrs IBP for 20 yrs. Future Testing and Treatments Planned [facility] rheumatology with next appt July 24, 2021. Trying different medications, but having reactions to them so far. Treatment Goals Patient/Caregiver Goals Pt goal is to decrease hand pain, increase mobility with less pain. Prior Functional Status Baseline Function- ADL's Independent Baseline Function- Mobility Independent Baseline Function- Other Able to write, opening a small bottle (instead of big jar lids). Pt able to write more than a couple sentences before having to stop and shake her hands and without numbness and tingling. Could drive for hours switching hands every 10 minutes because the fingers would go numb and tingly. Current Functional Impairments (Reported) Functional Limitations- ADL's Opening a small jar lid is painful. Writing 2 sentences R hand becomes sore and onset of numbness and tingling. Functional Limitations- Recreation/ Can play drums in [employer] (uses Hobbies pinch sweep molder to hold sticks). Functional Limitations- Other D for hours switching hands every 5 minutes because the fingers go numb and tingly. Since off of IBP the knuckles are read and hot/warm to touch and horribly painful. Personal Factors Other Personal Factors That May Effect Lives home alone. Therapy/Recovery Somewhat controlled HBP PT-OP-C Subjective Start: 05/16/21 16:28 Freq: Status: Active Protocol: Document 05/18/21 14:36 LRN (Rec: 05/18/21 17:39 LRN [id number]) Patient Questionnaires Quick Dash- Upper Extremity Quick Dash UE Score 63 Quick Dash UE Impairment 60 to 79% Impaired (Score 60- 79) OP-PT Pain Assessment Pain Assessment Grid Paper Pain Assessment Grid Completed Yes Location Bilateral Hand Pain Location Details Finger joints Intensity 6 Scale Used Numeric (0 - 10) Description Burning Description- Other Pain with moving of fingers is deep ache, pressure, swollen & mushy. Frequency Constant Pain Aggravating Factors Changing Position Pain Alleviating Factors Heat,Medication PT-OP-J Posture/Palpation/Skin Start: 05/16/21 16:28 Freq: Status: Active Protocol: Document 05/18/21 14:36 LRN (Rec: 05/18/21 17:39 LRN [id number]) Posture Evaluation Comments Posture Comments Deformity of bilateral index fingers, PIP jts are curved inward Deformiity of bilateral thumbs , IP jts curved outward. Enlarged joints PIP & DIP joints of fingers and thumbs. Palpation Assessment Location Fingers Palpation Location PIP & DIP joints of thumbs and fingers Palpation Findings Tenderness Palpation Details Swollen jts. PT-OP-K Range of Motion Start: 05/16/21 16:28 Freq: Status: Active Protocol: Document 05/18/21 14:36 LRN (Rec: 05/18/21 17:39 LRN [id number]) Finger Goniometric Range of Motion Finger R digits 2-5 Finger ROM WFL No Comments Generally: Flexion: MCP jts: 90 deg's, PIP jts: dec'd 50%, DIP jts: decr'd 50%. Extension: Normal except DIP jt's decreased 25%. Left digits 2-5 Finger ROM WFL No Comments Generally: Flexion: MCP jts: 90 deg's, PIP jts: dec'd 50%, DIP jts: decr'd 50%, except 5th digit is decr'd 100%. Extension: Normal except DIP jt's decreased 25%. PT-OP-M Strength Start: 05/16/21 16:28 Freq: Status: Active Protocol: Document 05/18/21 14:36 LRN (Rec: 05/18/21 17:39 LRN [id number]) Finger/Thumb Strength Finger Manual Muscle Testing R digits 3-5 Flexion (fingers C8) 5 Normal Extension (thumb C8) 5 Normal Abduction (fingers T1) 2 Poor Comments Table top strength is 5/5 L digits 3-5 Flexion (fingers C8) 5 Normal Extension (thumb C8) 5 Normal Abduction (fingers T1) 2 Poor Comments Table top strength is 5/5 Right index finger Flexion (fingers C8) 5 Normal Left index finger Flexion (fingers C8) 5 Normal Right Thumb Comments Generally 5/5 (at MCP jt) Left Thumb Comments Generally 5/5 (at MCP jt) Hand Momd Teacher/Pinch Strength Hand Dominance Hand Dominance Mixed PT-OP-Q Treatments Start: 05/16/21 16:28 Freq: Status: Active Protocol: Document 05/18/21 14:36 LRN (Rec: 05/18/21 17:39 LRN [id number]) Self-Care/Home Management Treatment Education Other Education Discussed results of evaluation, goals, and plan of care (POC). Pt agreeable to goals and POC. Educated pt in use of contrast bath treatment for pain and inflammation management. Activities Self-Care/Home Management Activities Issued & reviewed HEP: Hot/ Cold treatment for pain and inflammation management. PT-OP-T Assessment and Plan Start: 05/16/21 16:28 Freq: Status: Active Protocol: Document 05/18/21 14:36 LRN (Rec: 05/18/21 17:39 LRN [id number]) Physical Therapy Assessment Rehab Potential Rehabilitation Potential Good Evaluation Complexity Number of Personal Factors/Comorbidities 1-2 Number of Body Systems Impaired 4 or More Clinical Presentation at Evaluation Evolving Impairments Impairments Activity Tolerance,Pain,ROM, Strength Goals Three Impairment Khadar hand pain Impairment Khadar hand pain rated 5-6/10 non -stop burning pain all the time unless submerging hand in hot water (pain relief 1 hr). Short Term Goal (STG) Improve sweep molder strength with pt able to drive greater than 5' with one hand before onset of pain, numbness and tingling in the hand. STG Duration 06/29/21 Mcfp Goal (LTG) Decrease khadar hand pain to to no greater than 3/5 at rest. LTG Duration 07/17/21 Two Impairment Decreased khadar hand mobility Short Term Goal (STG) Increase finger mobility with pt able to open small jar lids with mild difficulty. STG Duration 06/22/21 Mcfp Goal (LTG) Pt able to write more than a couple sentences before having to stop and shake her hands and without numbness and tingling. LTG Duration 07/17/21 One Impairment Lacks appropriate self care HEP Short Term Goal (STG) Pt will be educated in wrist strengthening ex's. STG Duration 06/02/21 Mcfp Goal (LTG) Pt will be independent in a self care HEP of finger ROM and strengthening ex's. LTG Duration 07/17/21 Assessment Summary Assessment Pt presents with mechanical and soft tissue dysfunction of joints of the fingers and thumbs of both hands due to rheumatoid arthritis, limiting function due to decreased mobility and pain at the DIP & PIP joints of thumb and digits 2-5. The pt has considerable deformity of the index fingers bilaterally and at the PIP & DIP jts of the hands; therefore return to normal mobility is not expected, but the pt will benefit from skilled physical therapy to return the pt to her prior level of functional use of her hands while progressing on a home program. We will work towards achieving the above stated goals. Physical Therapy Plan Frequency and Duration Frequency of Treatment 1x/Week Plan of Care Start Date 05/18/21 Plan of Care End Date 07/17/21 Therapeutic Interventions Therapeutic Interventions Home Exercise Program,Manual Therapy,Patient/Caregiver Education,Self-Care/Home Management,Taping,Therapeutic Exercises Modalities Cold Pack/Ice Massage,Hot Packs,Paraffin Bath,Ultrasound Next Visit Focus/Plan Next Note Type Treatment Note Next Visit Plan Review contrast bath self care treatment. Check wrist ROM/strength. Check AROM of fingers (AD/AB) and sweep molder strength of hands bilaterally. ROM bilateral hands: PIP, DIP and to a lesser degree MCP joints. Strength bilateral hands: intrinsic and finger flexor/ extensor strengthening, Wrist strengthening. Pain management: Educate pt in joint protection and ROM/ strengthening as tolerated of hand. Modalities: Paraffin Dip, MH, US to wrist flexors/extensors , thenar eminence if pain.
--- NOTE | 2021-05-30 12:38 | PT.OTN ---
Current Diagnoses Rheumatoid arthritis without rheumatoid factor, unspecified site (05/30/21) Unspecified acquired deformity of hand, unspecified hand (05/30/21) Muscle weakness (generalized) (05/30/21) Physical Therapy Treatment Note PT-OP-A Visit Information Start: 05/16/21 16:28 Freq: Status: Active Protocol: Document 05/30/21 11:27 LRN (Rec: 05/30/21 12:36 LRN [id number]) Out-Patient Physical Therapy Visit Information Visit Information Visit Type Treatment Note Visit Start Time 11:27 Visit Stop Time 12:10 Total Visit Minutes 45 Visit Number 2 Evaluation Information Evaluation Date 05/18/21 Precautions Precautions R hand dominant, but naturally was L hand dominant. History of Breast cancer (x2 and several surgeries) Somewhat controlled HBP (~130/ ~80), neck pain from old whiiplash. PT-OP-B Current Condition Start: 05/16/21 16:28 Freq: Status: Active Protocol: Document 05/18/21 14:36 LRN (Rec: 05/18/21 17:39 LRN [id number]) Current Condition History of Current Condition Onset Date 2 months ago Current Complaints Pain in all the hand joints. History of Current Condition Went off handful of IBP and still taking 5 mg of prednisone and now has more pain in both hands. Having lack of mobility and strength because hands are stiff. Prior Treatments and Tests Prednisone for 20 yrs IBP for 20 yrs. Future Testing and Treatments Planned [facility] rheumatology with next appt July 24, 2021. Trying different medications, but having reactions to them so far. Treatment Goals Patient/Caregiver Goals Pt goal is to decrease hand pain, increase mobility with less pain. Prior Functional Status Baseline Function- ADL's Independent Baseline Function- Mobility Independent Baseline Function- Other Able to write, opening a small bottle (instead of big jar lids). Pt able to write more than a couple sentences before having to stop and shake her hands and without numbness and tingling. Could drive for hours switching hands every 10 minutes because the fingers would go numb and tingly. Current Functional Impairments (Reported) Functional Limitations- ADL's Opening a small jar lid is painful. Writing 2 sentences R hand becomes sore and onset of numbness and tingling. Functional Limitations- Recreation/ Can play drums in [employer] (uses Hobbies pinch harness cleaner to hold sticks). Functional Limitations- Other D for hours switching hands every 5 minutes because the fingers go numb and tingly. Since off of IBP the knuckles are read and hot/warm to touch and horribly painful. Personal Factors Other Personal Factors That May Effect Lives home alone. Therapy/Recovery Somewhat controlled HBP PT-OP-C Subjective Start: 05/16/21 16:28 Freq: Status: Active Protocol: Document 05/30/21 11:27 LRN (Rec: 05/30/21 12:36 LRN [id number]) OP-PT Subjective Patient Comments Patient Comments Fingers are same. Doing hot/ cold and found it helpful a little. PT-OP-J Posture/Palpation/Skin Start: 05/16/21 16:28 Freq: Status: Active Protocol: Document 05/18/21 14:36 LRN (Rec: 05/18/21 17:39 LRN [id number]) Posture Evaluation Comments Posture Comments Deformity of bilateral index fingers, PIP jts are curved inward Deformiity of bilateral thumbs , IP jts curved outward. Enlarged joints PIP & DIP joints of fingers and thumbs. Palpation Assessment Location Fingers Palpation Location PIP & DIP joints of thumbs and fingers Palpation Findings Tenderness Palpation Details Swollen jts. PT-OP-K Range of Motion Start: 05/16/21 16:28 Freq: Status: Active Protocol: Document 05/30/21 11:27 LRN (Rec: 05/30/21 12:36 LRN [id number]) Wrist Goniometric Range of Motion Wrist Right Flexion Active (degrees) 65 Extension Active (degrees) 55 Ulnar Deviation Active (degrees) 32 Radial Deviation Active (degrees) 13 Left Flexion Active (degrees) 60 Extension Active (degrees) 55 Ulnar Deviation Active (degrees) 22 Radial Deviation Active (degrees) 18 Finger Goniometric Range of Motion Finger Left Second PIP Flexion Active (degrees) 80 DIP Flexion Active (70-90 degrees) 42 L Left Third PIP Flexion Active (degrees) 90 DIP Flexion Active (70-90 degrees) 60 L Left Fourth PIP Flexion Active (degrees) 90 DIP Flexion Active (70-90 degrees) 58 L Left Fifth PIP Flexion Active (degrees) 80 DIP Flexion Active (70-90 degrees) 30 L Right Second PIP Flexion Active (degrees) 94 DIP Flexion Active (70-90 degrees) 48 L Right Third PIP Flexion Active (degrees) 90 DIP Flexion Active (70-90 degrees) 56 L Right Fourth PIP Flexion Active (degrees) 96 DIP Flexion Active (70-90 degrees) 56 L Right Fifth PIP Flexion Active (degrees) 88 DIP Flexion Active (70-90 degrees) 46 L R digits 2-5 DIP Flexion Active (70-90 degrees) 46 L PT-OP-M Strength Start: 05/16/21 16:28 Freq: Status: Active Protocol: Document 05/30/21 11:27 LRN (Rec: 05/30/21 12:36 LRN [id number]) Wrist Strength Wrist Manual Muscle Testing Right Comments Generally 5/5 Left Comments Generally 5/5. Hand Pipe Fitter Welding/Pinch Strength Hand Dominance Hand Dominance Right Hand Strength Right Comments Finger AB/AD is generally 5/5. PT-OP-Q Treatments Start: 05/16/21 16:28 Freq: Status: Active Protocol: Document 05/30/21 11:27 LRN (Rec: 05/30/21 12:36 LRN [id number]) Therapeutic Exercises Sitting Exercises Wrist ROM Sitting Exercise Name Flex/ext/UD/RD/Pron/Sup AROM/ vito hold Side bilateral Reps/Minutes x 1 Comments MMT taken Finger AB/AD Side right Reps/Minutes 2' Finger tendon glides Sitting Exercise Name Table top, hookfist, combo: hook, full, straight fist; curled (hook)>puppet Side bilateral Reps/Minutes 28' Comments ROM taken of PIP, DIP flex digits 2-5 Self-Care/Home Management Treatment Education Patient Education Pain Management Other Education Discussed HEP of hot/cold treatment as to times during the day and how to encorporate during her day (ex-washing dishes). PT-OP-R Modalities Start: 05/16/21 16:28 Freq: Status: Active Protocol: Document 05/30/21 11:27 LRN (Rec: 05/30/21 12:36 LRN [id number]) Paraffin Bath Treatment Left Hand Treatment Technique Dip-immersion Number Wax Layers (layers) 8 Duration (minutes) 10 Patient Tolerance Good Comment Treatment Comment Not able to do R hand due to non-removeable ring. PT-OP-T Assessment and Plan Start: 05/16/21 16:28 Freq: Status: Active Protocol: Document 05/30/21 11:27 LRN (Rec: 05/30/21 12:36 LRN [id number]) Physical Therapy Assessment Goals Three Impairment Khadar hand pain Impairment Khadar hand pain rated 5-6/10 non -stop burning pain all the time unless submerging hand in hot water (pain relief 1 hr). Short Term Goal (STG) Improve harness cleaner strength with pt able to drive greater than 5' with one hand before onset of pain, numbness and tingling in the hand. STG Duration 06/29/21 Hotel Lobby Concierge Goal (LTG) Decrease khadar hand pain to to no greater than 3/5 at rest. LTG Duration 07/17/21 Two Impairment Decreased khadar hand mobility Short Term Goal (STG) Increase finger mobility with pt able to open small jar lids with mild difficulty. STG Duration 06/22/21 Mcfp Goal (LTG) Pt able to write more than a couple sentences before having to stop and shake her hands and without numbness and tingling. LTG Duration 07/17/21 One Impairment Lacks appropriate self care HEP Short Term Goal (STG) Pt will be educated in wrist strengthening ex's. STG Duration 06/02/21 Hotel Lobby Concierge Goal (LTG) Pt will be independent in a self care HEP of finger ROM and strengthening ex's. LTG Duration 07/17/21 Progress Towards Goals Progress Comments Progressed self care HEP. Assessment Summary Assessment Extra time needed for paraffin dip due to needed, repeated washing of L hand/forearm. Pt AROM of L hand is after paraffin dip, R hand is without modality. Pt finger AROM is decreased at DIP bilaterally, PIP is within normal range. Pt's wrist AROM flex/ext is decreased ~20-30 deg's and UD/RD is mildly decreased. Wrist strength is within normal. Pt appears to have a good understanding of hot/cold treatment at home and has some relief of discomfort . Physical Therapy Plan Frequency and Duration Frequency of Treatment 1x/Week Plan of Care Start Date 05/18/21 Plan of Care End Date 07/17/21 Next Visit Focus/Plan Next Note Type Treatment Note Next Visit Plan Check L hand AB/AD strength. Check harness cleaner strength of hands bilaterally. ROM bilateral hands: PIP, DIP and to a lesser degree MCP joints. Strength bilateral hands: intrinsic and finger flexor/ extensor strengthening, Wrist strengthening for opening jars. Pain management: Educate pt in joint protection and ROM/ strengthening as tolerated of hand. Modalities: Paraffin Dip, MH, US to wrist ms flexors/ extensors, thenar eminence if pain.
--- NOTE | 2021-06-02 16:01 | PT.OTN ---
Current Diagnoses Rheumatoid arthritis without rheumatoid factor, unspecified site (06/02/21) Unspecified acquired deformity of hand, unspecified hand (06/02/21) Muscle weakness (generalized) (06/02/21) Physical Therapy Treatment Note PT-OP-A Visit Information Start: 05/16/21 16:28 Freq: Status: Active Protocol: Document 06/02/21 11:25 LRN (Rec: 06/02/21 12:08 LRN [id number]) Out-Patient Physical Therapy Visit Information Visit Information Visit Type Treatment Note Visit Start Time 11:25 Visit Stop Time 12:04 Total Visit Minutes 39 Visit Number 3 Evaluation Information Evaluation Date 05/18/21 Precautions Precautions R hand dominant, but naturally was L hand dominant. History of Breast cancer (x2 and several surgeries) Somewhat controlled HBP (~130/ ~80), neck pain from old whiiplash. PT-OP-B Current Condition Start: 05/16/21 16:28 Freq: Status: Active Protocol: Document 05/18/21 14:36 LRN (Rec: 05/18/21 17:39 LRN [id number]) Current Condition History of Current Condition Onset Date 2 months ago Current Complaints Pain in all the hand joints. History of Current Condition Went off handful of IBP and still taking 5 mg of prednisone and now has more pain in both hands. Having lack of mobility and strength because hands are stiff. Prior Treatments and Tests Prednisone for 20 yrs IBP for 20 yrs. Future Testing and Treatments Planned [facility] rheumatology with next appt July 24, 2021. Trying different medications, but having reactions to them so far. Treatment Goals Patient/Caregiver Goals Pt goal is to decrease hand pain, increase mobility with less pain. Prior Functional Status Baseline Function- ADL's Independent Baseline Function- Mobility Independent Baseline Function- Other Able to write, opening a small bottle (instead of big jar lids). Pt able to write more than a couple sentences before having to stop and shake her hands and without numbness and tingling. Could drive for hours switching hands every 10 minutes because the fingers would go numb and tingly. Current Functional Impairments (Reported) Functional Limitations- ADL's Opening a small jar lid is painful. Writing 2 sentences R hand becomes sore and onset of numbness and tingling. 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 Functional Limitations- Other D for hours switching hands every 5 minutes because the fingers go numb and tingly. Since off of IBP the knuckles are read and hot/warm to touch and horribly painful. Personal Factors Other Personal Factors That May Effect Lives home alone. Therapy/Recovery Somewhat controlled HBP PT-OP-C Subjective Start: 05/16/21 16:28 Freq: Status: Active Protocol: Document 06/02/21 11:25 LRN (Rec: 06/02/21 12:08 LRN [id number]) OP-PT Subjective Patient Comments Patient Comments Doing ex's and warm/cold and thinks it has helped a little. PT-OP-J Posture/Palpation/Skin Start: 05/16/21 16:28 Freq: Status: Active Protocol: Document 05/18/21 14:36 LRN (Rec: 05/18/21 17:39 LRN [id number]) Posture Evaluation Comments Posture Comments Deformity of bilateral index fingers, PIP jts are curved inward Deformiity of bilateral thumbs , IP jts curved outward. Enlarged joints PIP & DIP joints of fingers and thumbs. Palpation Assessment Location Fingers Palpation Location PIP & DIP joints of thumbs and fingers Palpation Findings Tenderness Palpation Details Swollen jts. PT-OP-K Range of Motion Start: 05/16/21 16:28 Freq: Status: Active Protocol: Document 05/30/21 11:27 LRN (Rec: 05/30/21 12:36 LRN [id number]) Wrist Goniometric Range of Motion Wrist Right Flexion Active (degrees) 65 Extension Active (degrees) 55 Ulnar Deviation Active (degrees) 32 Radial Deviation Active (degrees) 13 Left Flexion Active (degrees) 60 Extension Active (degrees) 55 Ulnar Deviation Active (degrees) 22 Radial Deviation Active (degrees) 18 Finger Goniometric Range of Motion Finger Left Second PIP Flexion Active (degrees) 80 DIP Flexion Active (70-90 degrees) 42 L Left Third PIP Flexion Active (degrees) 90 DIP Flexion Active (70-90 degrees) 60 L Left Fourth PIP Flexion Active (degrees) 90 DIP Flexion Active (70-90 degrees) 58 L Left Fifth PIP Flexion Active (degrees) 80 DIP Flexion Active (70-90 degrees) 30 L Right Second PIP Flexion Active (degrees) 94 DIP Flexion Active (70-90 degrees) 48 L Right Third PIP Flexion Active (degrees) 90 DIP Flexion Active (70-90 degrees) 56 L Right Fourth PIP Flexion Active (degrees) 96 DIP Flexion Active (70-90 degrees) 56 L Right Fifth PIP Flexion Active (degrees) 88 DIP Flexion Active (70-90 degrees) 46 L R digits 2-5 DIP Flexion Active (70-90 degrees) 46 L PT-OP-M Strength Start: 05/16/21 16:28 Freq: Status: Active Protocol: Document 06/02/21 11:25 LRN (Rec: 06/02/21 12:08 LRN [id number]) Hand Operating Room Orderly/Pinch Strength Hand Dominance Hand Dominance Right Hand Strength Left Operating Room Orderly (lbs) 21 Comments LBS: 46, 50, 46 kgs: 21, 22, 21 (norm for 65 -69: 18.6) Right Operating Room Orderly (lbs) 25 Comments LBS: 50, 55, 55 kgs: 22, 27, 27 (norm for ages 65-69: 22.5) PT-OP-Q Treatments Start: 05/16/21 16:28 Freq: Status: Active Protocol: Document 06/02/21 11:25 LRN (Rec: 06/02/21 12:08 LRN [id number]) Therapeutic Exercises Sitting Exercises DIP/PIP jts Sitting Exercise Name DIP/PIP jts - flex/ext Side bilateral Reps/Minutes 6' Comments Operating Room Orderly strength testing, I/S pt in fist making ex for HEP. Wrist ROM Sitting Exercise Name AROM - flex/ext Side bilateral Reps/Minutes 4' Manual Therapy Treatment Joint Mobilizations L hand Joint PIP & DIP jts Direction AP/PA Body Position Sitting Reps/Duration 12' R hand Joint PIP & DIP jts Direction AP/PA Body Position Sitting Reps/Duration 12' PT-OP-R Modalities Start: 05/16/21 16:28 Freq: Status: Active Protocol: Document 06/02/21 11:25 LRN (Rec: 06/02/21 16:01 LRN [id number]) Paraffin Bath Treatment Left Hand Treatment Technique Dip-immersion Number Wax Layers (layers) 8 Duration (minutes) 5 Patient Tolerance Good PT-OP-T Assessment and Plan Start: 05/16/21 16:28 Freq: Status: Active Protocol: Document 06/02/21 11:25 LRN (Rec: 06/02/21 12:08 LRN [id number]) Physical Therapy Assessment Goals Three Impairment Khadar hand pain Impairment Khadar hand pain rated 5-6/10 non -stop burning pain all the time unless submerging hand in hot water (pain relief 1 hr). Short Term Goal (STG) Improve senior clinical sas programmer strength with pt able to drive greater than 5' with one hand before onset of pain, numbness and tingling in the hand. STG Duration 06/29/21 Shot Tube Machine Tender Goal (LTG) Decrease khadar hand pain to to no greater than 3/5 at rest. LTG Duration 07/17/21 Two Impairment Decreased khadar hand mobility Impairment PIP flex (deg's): L Hand: Digit : 2-80, 3-90, 4-90, 5-80 PIP flex (deg's): R hand: Digit: 2-94, 3-90, 4-96, 5-88 DIP ext (deg's): L hand: Digit : 2-42, 3-60, 4-58, 5-30 DIP ext (deg's): R hand: Digit : 2-48, 3-56, 4-56, 5-46 Short Term Goal (STG) Increase finger mobility with pt able to open small jar lids with mild difficulty. STG Duration 06/22/21 Shot Tube Machine Tender Goal (LTG) Pt able to write more than a couple sentences before having to stop and shake her hands and without numbness and tingling. LTG Duration 07/17/21 One Impairment Lacks appropriate self care HEP Short Term Goal (STG) Pt will be educated in wrist strengthening ex's. STG Duration 06/02/21 Shot Tube Machine Tender Goal (LTG) Pt will be independent in a self care HEP of finger ROM and strengthening ex's. (06/02/21: HEP I/S: Operating Room Orderly making ex) LTG Duration 07/17/21 (06/02/21: Progressed ) Progress Towards Goals Progress Comments Improved fiinger flex mobility after JMT and paraffin dip, with pt able to touch her fingertips to her palm in making a fist (except digits 4 & 5). Assessment Summary Assessment Pt senior clinical sas programmer strength is strong, bilaterally, compared to the avg females in age range of 65 to 69. Her finger flex of PIP & DID jts increased after JMT and use of paraffin dip with pt able to touch finger tips to palm of hand except with 4th & 5th digits. Physical Therapy Plan Frequency and Duration Frequency of Treatment 1x/Week Plan of Care Start Date 05/18/21 Plan of Care End Date 07/17/21 Next Visit Focus/Plan Next Note Type Treatment Note Next Visit Plan Check L hand AB/AD strength. ROM bilateral hands: MCP joints. Strength bilateral hands: intrinsic and finger flexor, & finger extensor strengthening , Wrist strengthening for opening jars. Pain management: Educate pt in joint protection and ROM/ strengthening as tolerated of hand. Modalities: Paraffin Dip, MH, US to wrist ms flexors/ extensors, thenar eminence if pain.
--- NOTE | 2021-06-06 15:08 | PT.OTN ---
Current Diagnoses Rheumatoid arthritis without rheumatoid factor, unspecified site (06/06/21) Unspecified acquired deformity of hand, unspecified hand (06/06/21) Muscle weakness (generalized) (06/06/21) Physical Therapy Treatment Note PT-OP-A Visit Information Start: 05/16/21 16:28 Freq: Status: Active Protocol: Document 06/06/21 11:20 LRN (Rec: 06/06/21 12:13 LRN [id number]) Out-Patient Physical Therapy Visit Information Visit Information Visit Type Treatment Note Visit Start Time 11:20 Visit Stop Time 12:04 Total Visit Minutes 43 Visit Number [id number] Evaluation Information Evaluation Date 05/18/21 Precautions Precautions R hand dominant, but naturally was L hand dominant. History of Breast cancer (x2 and several surgeries) Somewhat controlled HBP (~130/ ~80), neck pain from old whiiplash. PT-OP-B Current Condition Start: 05/16/21 16:28 Freq: Status: Active Protocol: Document 05/18/21 14:36 LRN (Rec: 05/18/21 17:39 LRN [id number]) Current Condition History of Current Condition Onset Date 2 months ago Current Complaints Pain in all the hand joints. History of Current Condition Went off handful of IBP and still taking 5 mg of prednisone and now has more pain in both hands. Having lack of mobility and strength because hands are stiff. Prior Treatments and Tests Prednisone for 20 yrs IBP for 20 yrs. Future Testing and Treatments Planned [facility] rheumatology with next appt July 24, 2021. Trying different medications, but having reactions to them so far. Treatment Goals Patient/Caregiver Goals Pt goal is to decrease hand pain, increase mobility with less pain. Prior Functional Status Baseline Function- ADL's Independent Baseline Function- Mobility Independent Baseline Function- Other Able to write, opening a small bottle (instead of big jar lids). Pt able to write more than a couple sentences before having to stop and shake her hands and without numbness and tingling. Could drive for hours switching hands every 10 minutes because the fingers would go numb and tingly. Current Functional Impairments (Reported) Functional Limitations- ADL's Opening a small jar lid is painful. Writing 2 sentences R hand becomes sore and onset of numbness and tingling. 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 Functional Limitations- Other D for hours switching hands every 5 minutes because the fingers go numb and tingly. Since off of IBP the knuckles are read and hot/warm to touch and horribly painful. Personal Factors Other Personal Factors That May Effect Lives home alone. Therapy/Recovery Somewhat controlled HBP PT-OP-C Subjective Start: 05/16/21 16:28 Freq: Status: Active Protocol: Document 06/06/21 11:20 LRN (Rec: 06/06/21 12:13 LRN [id number]) OP-PT Subjective Patient Comments Patient Comments No change. Feels the hot/cold treatment is helpful to reduce burning pain in hands. PT-OP-J Posture/Palpation/Skin Start: 05/16/21 16:28 Freq: Status: Active Protocol: Document 05/18/21 14:36 LRN (Rec: 05/18/21 17:39 LRN [id number]) Posture Evaluation Comments Posture Comments Deformity of bilateral index fingers, PIP jts are curved inward Deformiity of bilateral thumbs , IP jts curved outward. Enlarged joints PIP & DIP joints of fingers and thumbs. Palpation Assessment Location Fingers Palpation Location PIP & DIP joints of thumbs and fingers Palpation Findings Tenderness Palpation Details Swollen jts. PT-OP-K Range of Motion Start: 05/16/21 16:28 Freq: Status: Active Protocol: Document 05/30/21 11:27 LRN (Rec: 05/30/21 12:36 LRN [id number]) Wrist Goniometric Range of Motion Wrist Right Flexion Active (degrees) 65 Extension Active (degrees) 55 Ulnar Deviation Active (degrees) 32 Radial Deviation Active (degrees) 13 Left Flexion Active (degrees) 60 Extension Active (degrees) 55 Ulnar Deviation Active (degrees) 22 Radial Deviation Active (degrees) 18 Finger Goniometric Range of Motion Finger Left Second PIP Flexion Active (degrees) 80 DIP Flexion Active (70-90 degrees) 42 L Left Third PIP Flexion Active (degrees) 90 DIP Flexion Active (70-90 degrees) 60 L Left Fourth PIP Flexion Active (degrees) 90 DIP Flexion Active (70-90 degrees) 58 L Left Fifth PIP Flexion Active (degrees) 80 DIP Flexion Active (70-90 degrees) 30 L Right Second PIP Flexion Active (degrees) 94 DIP Flexion Active (70-90 degrees) 48 L Right Third PIP Flexion Active (degrees) 90 DIP Flexion Active (70-90 degrees) 56 L Right Fourth PIP Flexion Active (degrees) 96 DIP Flexion Active (70-90 degrees) 56 L Right Fifth PIP Flexion Active (degrees) 88 DIP Flexion Active (70-90 degrees) 46 L R digits 2-5 DIP Flexion Active (70-90 degrees) 46 L PT-OP-M Strength Start: 05/16/21 16:28 Freq: Status: Active Protocol: Document 06/06/21 11:20 LRN (Rec: 06/06/21 12:13 LRN [id number]) Finger/Thumb Strength Finger Manual Muscle Testing L digits 3-5 Adduction 5 Normal Abduction (fingers T1) 5 Normal PT-OP-Q Treatments Start: 05/16/21 16:28 Freq: Status: Active Protocol: Document 06/06/21 11:20 LRN (Rec: 06/06/21 12:13 LRN [id number]) Therapeutic Exercises Sitting Exercises Finger Ext Sitting Exercise Name Finger ext lifts for strengthening Side bilateral Reps/Minutes 6' DIP/PIP jts Sitting Exercise Name Active & Passive DIP/PIP jts - flex/ext Side bilateral Reps/Minutes 6' Comments Beauty Culture Teacher strength testing, I/S pt in fist making ex for HEP. Wrist ROM Sitting Exercise Name Ext Side right Equipment Used 2# Reps/Minutes 2' Comments Pt to ex L hand at home. Finger AB/AD Sitting Exercise Name AB digits 2-5 Side bilateral Reps/Minutes 2' Comments L hand strength for AB/AD is 5 /5 Manual Therapy Treatment Joint Mobilizations L hand Joint PIP & DIP jts Direction AP/PA Body Position Sitting Reps/Duration 11' R hand Joint PIP & DIP jts Direction AP/PA Body Position Sitting Reps/Duration 11' PT-OP-R Modalities Start: 05/16/21 16:28 Freq: Status: Active Protocol: Document 06/06/21 11:20 LRN (Rec: 06/06/21 12:13 LRN [id number]) Paraffin Bath Treatment Left Hand Treatment Technique Dip-immersion Number Wax Layers (layers) 8 Duration (minutes) 5 Patient Tolerance Good PT-OP-T Assessment and Plan Start: 05/16/21 16:28 Freq: Status: Active Protocol: Document 06/06/21 11:20 LRN (Rec: 06/06/21 12:13 LRN [id number]) Physical Therapy Assessment Goals Three Impairment Khadar hand pain Impairment Khadar hand pain rated 5-6/10 non -stop burning pain all the time unless submerging hand in hot water (pain relief 1 hr). Short Term Goal (STG) Improve geothermal technician strength with pt able to drive greater than 5' with one hand before onset of pain, numbness and tingling in the hand. STG Duration 06/29/21 [facility] Goal (LTG) Decrease khadar hand pain to to no greater than 3/5 at rest. LTG Duration 07/17/21 Two Impairment Decreased khadar hand mobility Impairment PIP flex (deg's): L Hand: Digit : 2-80, 3-90, 4-90, 5-80 PIP flex (deg's): R hand: Digit: 2-94, 3-90, 4-96, 5-88 DIP ext (deg's): L hand: Digit : 2-42, 3-60, 4-58, 5-30 DIP ext (deg's): R hand: Digit : 2-48, 3-56, 4-56, 5-46 Short Term Goal (STG) Increase finger mobility with pt able to open small jar lids with mild difficulty. STG Duration 06/22/21 [employer] Writer/Runner Goal (LTG) Pt able to write more than a couple sentences before having to stop and shake her hands and without numbness and tingling. LTG Duration 07/17/21 One Impairment Lacks appropriate self care HEP Short Term Goal (STG) Pt will be educated in wrist strengthening ex's. STG Duration 06/02/21 [facility] Goal (LTG) Pt will be independent in a self care HEP of finger ROM and strengthening ex's. (06/02/21: HEP I/S: Beauty Culture Teacher making ex) LTG Duration 07/17/21 (06/02/21: Progressed ) Progress Towards Goals Progress Comments R hand finger flex mobility improved after JMT. Assessment Summary Assessment L hand geothermal technician mobility is limited compared to R with pt barely able to touch fingertips to palm on L, but able on the R after manual mobs. L hand finger AB/AD strength is normal. Physical Therapy Plan Frequency and Duration Frequency of Treatment 1x/Week Plan of Care Start Date 05/18/21 Plan of Care End Date 07/17/21 Next Visit Focus/Plan Next Note Type Treatment Note Next Visit Plan Recheck R digits 3-5 MMT for AB/AD. HEP for wrist strengthening ( focus on twisting for opening jars). ROM bilateral hands: Add MCP joints to see if geothermal technician mobility improves. Strength bilateral hands: intrinsics, finger flexors, & finger extensors. Wrist strengthening for opening jars and consider adaptive equipment to assist Pain management: Educate pt in joint protection and ROM/ strengthening as tolerated of hand. Modalities: Paraffin Dip, MH, US to wrist ms flexors/ extensors, thenar eminence if pain.
--- NOTE | 2021-06-09 12:28 | PT.OTN ---
Current Diagnoses Rheumatoid arthritis without rheumatoid factor, unspecified site (06/09/21) Unspecified acquired deformity of hand, unspecified hand (06/09/21) Muscle weakness (generalized) (06/09/21) Physical Therapy Treatment Note PT-OP-A Visit Information Start: 05/16/21 16:28 Freq: Status: Active Protocol: Document 06/09/21 11:19 LRN (Rec: 06/09/21 12:25 LRN [id number]) Out-Patient Physical Therapy Visit Information Visit Information Visit Type Treatment Note Visit Start Time 11:19 Visit Stop Time 12:08 Total Visit Minutes 49 Visit Number 4 Evaluation Information Evaluation Date 05/18/21 Precautions Precautions R hand dominant, but naturally was L hand dominant. History of Breast cancer (x2 and several surgeries) Somewhat controlled HBP (~130/ ~80), neck pain from old whiiplash. PT-OP-B Current Condition Start: 05/16/21 16:28 Freq: Status: Active Protocol: Document 05/18/21 14:36 LRN (Rec: 05/18/21 17:39 LRN [id number]) Current Condition History of Current Condition Onset Date 2 months ago Current Complaints Pain in all the hand joints. History of Current Condition Went off handful of IBP and still taking 5 mg of prednisone and now has more pain in both hands. Having lack of mobility and strength because hands are stiff. Prior Treatments and Tests Prednisone for 20 yrs IBP for 20 yrs. Future Testing and Treatments Planned [facility] rheumatology with next appt July 24, 2021. Trying different medications, but having reactions to them so far. Treatment Goals Patient/Caregiver Goals Pt goal is to decrease hand pain, increase mobility with less pain. Prior Functional Status Baseline Function- ADL's Independent Baseline Function- Mobility Independent Baseline Function- Other Able to write, opening a small bottle (instead of big jar lids). Pt able to write more than a couple sentences before having to stop and shake her hands and without numbness and tingling. Could drive for hours switching hands every 10 minutes because the fingers would go numb and tingly. Current Functional Impairments (Reported) Functional Limitations- ADL's Opening a small jar lid is painful. Writing 2 sentences R hand becomes sore and onset of numbness and tingling. Functional Limitations- Recreation/ Can play drums in scientology (uses Hobbies pinch dehydration unit operator to hold sticks). Functional Limitations- Other D for hours switching hands every 5 minutes because the fingers go numb and tingly. Since off of IBP the knuckles are read and hot/warm to touch and horribly painful. Personal Factors Other Personal Factors That May Effect Lives home alone. Therapy/Recovery Somewhat controlled HBP PT-OP-C Subjective Start: 05/16/21 16:28 Freq: Status: Active Protocol: Document 06/09/21 11:19 LRN (Rec: 06/09/21 12:25 LRN [id number]) OP-PT Subjective Patient Comments Patient Comments Can bend the R fingers better. (pt demonstrates fingers touching palm with full dehydration unit operator, except index finger), but decreased PIP/DIP mobility. PT-OP-J Posture/Palpation/Skin Start: 05/16/21 16:28 Freq: Status: Active Protocol: Document 05/18/21 14:36 LRN (Rec: 05/18/21 17:39 LRN [id number]) Posture Evaluation Comments Posture Comments Deformity of bilateral index fingers, PIP jts are curved inward Deformiity of bilateral thumbs , IP jts curved outward. Enlarged joints PIP & DIP joints of fingers and thumbs. Palpation Assessment Location Fingers Palpation Location PIP & DIP joints of thumbs and fingers Palpation Findings Tenderness Palpation Details Swollen jts. PT-OP-K Range of Motion Start: 05/16/21 16:28 Freq: Status: Active Protocol: Document 05/30/21 11:27 LRN (Rec: 05/30/21 12:36 LRN [id number]) Wrist Goniometric Range of Motion Wrist Right Flexion Active (degrees) 65 Extension Active (degrees) 55 Ulnar Deviation Active (degrees) 32 Radial Deviation Active (degrees) 13 Left Flexion Active (degrees) 60 Extension Active (degrees) 55 Ulnar Deviation Active (degrees) 22 Radial Deviation Active (degrees) 18 Finger Goniometric Range of Motion Finger Left Second PIP Flexion Active (degrees) 80 DIP Flexion Active (70-90 degrees) 42 L Left Third PIP Flexion Active (degrees) 90 DIP Flexion Active (70-90 degrees) 60 L Left Fourth PIP Flexion Active (degrees) 90 DIP Flexion Active (70-90 degrees) 58 L Left Fifth PIP Flexion Active (degrees) 80 DIP Flexion Active (70-90 degrees) 30 L Right Second PIP Flexion Active (degrees) 94 DIP Flexion Active (70-90 degrees) 48 L Right Third PIP Flexion Active (degrees) 90 DIP Flexion Active (70-90 degrees) 56 L Right Fourth PIP Flexion Active (degrees) 96 DIP Flexion Active (70-90 degrees) 56 L Right Fifth PIP Flexion Active (degrees) 88 DIP Flexion Active (70-90 degrees) 46 L R digits 2-5 DIP Flexion Active (70-90 degrees) 46 L PT-OP-M Strength Start: 05/16/21 16:28 Freq: Status: Active Protocol: Document 06/06/21 11:20 LRN (Rec: 06/06/21 12:13 LRN [id number]) Finger/Thumb Strength Finger Manual Muscle Testing L digits 3-5 Adduction 5 Normal Abduction (fingers T1) 5 Normal PT-OP-Q Treatments Start: 05/16/21 16:28 Freq: Status: Active Protocol: Document 06/09/21 11:19 LRN (Rec: 06/09/21 12:25 LRN [id number]) Therapeutic Exercises Sitting Exercises Finger flex strengthening Sitting Exercise Name Hook & full dehydration unit operator strengthening Side bilateral Equipment Used Green putty Reps/Minutes 6' Finger Ext Sitting Exercise Name Finger ext lifts for strengthening Side bilateral Equipment Used Gr T-Putty & green finger bands Reps/Minutes 8' DIP/PIP jts Sitting Exercise Name Active & Passive DIP/PIP jts - flex/ext Side bilateral Reps/Minutes 5' Wrist ROM Sitting Exercise Name Ext stretch Side bilateral Reps/Minutes 2' Comments Pt to ex L hand at home. Manual Therapy Treatment Joint Mobilizations L hand Joint PIP & DIP jts Direction AP/PA Body Position Sitting Reps/Duration 10 R hand Joint PIP & DIP jts Direction AP/PA Body Position Sitting Reps/Duration 10 Self-Care/Home Management Treatment Education Other Education Issued information for finger bands that pt could purchase online. Activities Self-Care/Home Management Activities Issued Green TPutty for resisted finger flexion strengthening and I/S pt in use for finger flex of hook and full dehydration unit operator, and with extension PT-OP-R Modalities Start: 05/16/21 16:28 Freq: Status: Active Protocol: Document 06/06/21 11:20 LRN (Rec: 06/06/21 12:13 LRN [id number]) Paraffin Bath Treatment Left Hand Treatment Technique Dip-immersion Number Wax Layers (layers) 8 Duration (minutes) 5 Patient Tolerance Good PT-OP-T Assessment and Plan Start: 05/16/21 16:28 Freq: Status: Active Protocol: Document 06/09/21 11:19 LRN (Rec: 06/09/21 12:25 LRN [id number]) Physical Therapy Assessment Goals Three Impairment Khadar hand pain Impairment Khadar hand pain rated 5-6/10 non -stop burning pain all the time unless submerging hand in hot water (pain relief 1 hr). Short Term Goal (STG) Improve dehydration unit operator strength with pt able to drive greater than 5' with one hand before onset of pain, numbness and tingling in the hand. STG Duration 06/29/21 Golf Sales Manager Goal (LTG) Decrease khadar hand pain to to no greater than 3/5 at rest. LTG Duration 07/17/21 Two Impairment Decreased khadar hand mobility Impairment PIP flex (deg's): L Hand: Digit : 2-80, 3-90, 4-90, 5-80 PIP flex (deg's): R hand: Digit: 2-94, 3-90, 4-96, 5-88 DIP ext (deg's): L hand: Digit : 2-42, 3-60, 4-58, 5-30 DIP ext (deg's): R hand: Digit : 2-48, 3-56, 4-56, 5-46 Short Term Goal (STG) Increase finger mobility with pt able to open small jar lids with mild difficulty. STG Duration 06/22/21 Fdc Goal (LTG) Pt able to write more than a couple sentences before having to stop and shake her hands and without numbness and tingling. LTG Duration 07/17/21 One Impairment Lacks appropriate self care HEP Short Term Goal (STG) Pt will be educated in wrist strengthening ex's. STG Duration 06/02/21 Golf Sales Manager Goal (LTG) Pt will be independent in a self care HEP of finger ROM and strengthening ex's. (06/02/21: HEP I/S: Cafe Site Attendant making ex) (06/09/21: Gripping I/S with green T-Putty issued) LTG Duration 07/17/21 (06/09/21: Progressed ) Progress Towards Goals Progress Comments Progressed HEP with issuance of Green T-putty. Khadar hand finger flexion mobility improved bilaiterally after manual therapy with fingernails touching palms during gripping, except for index fingers. Assessment Summary Assessment Pt able to touch long fingernails to palm except for index finger, bilaterally. Pt tight with wrist ext and weak with finger extensions. Physical Therapy Plan Frequency and Duration Frequency of Treatment 1x/Week Plan of Care Start Date 05/18/21 Plan of Care End Date 07/17/21 Next Visit Focus/Plan Next Note Type Treatment Note Next Visit Plan Recheck R digits 3-5 MMT for AB/AD. HEP for wrist strengthening ( focus on twisting for opening jars). ROM bilateral hands: Add MCP joints to see if dehydration unit operator mobility improves. Strength bilateral hands: intrinsics, finger flexors, & finger extensors. Wrist strengthening for opening jars and consider adaptive equipment to assist Pain management: Educate pt in joint protection and ROM/ strengthening as tolerated of hand. Modalities: Paraffin Dip, MH, US to wrist ms flexors/ extensors, thenar eminence if pain.
--- NOTE | 2021-06-13 12:23 | PT.OTN ---
Current Diagnoses Rheumatoid arthritis without rheumatoid factor, unspecified site (06/13/21) Unspecified acquired deformity of hand, unspecified hand (06/13/21) Muscle weakness (generalized) (06/13/21) Physical Therapy Treatment Note PT-OP-A Visit Information Start: 05/16/21 16:28 Freq: Status: Active Protocol: Document 06/13/21 11:21 LRN (Rec: 06/13/21 12:21 LRN [id number]) Out-Patient Physical Therapy Visit Information Visit Information Visit Type Treatment Note Visit Start Time 11:21 Visit Stop Time 12:07 Total Visit Minutes 46 Visit Number 5 Evaluation Information Evaluation Date 05/18/21 Precautions Precautions R hand dominant, but naturally was L hand dominant. History of Breast cancer (x2 and several surgeries) Somewhat controlled HBP (~130/ ~80), neck pain from old whiiplash. PT-OP-B Current Condition Start: 05/16/21 16:28 Freq: Status: Active Protocol: Document 05/18/21 14:36 LRN (Rec: 05/18/21 17:39 LRN [id number]) Current Condition History of Current Condition Onset Date 2 months ago Current Complaints Pain in all the hand joints. History of Current Condition Went off handful of IBP and still taking 5 mg of prednisone and now has more pain in both hands. Having lack of mobility and strength because hands are stiff. Prior Treatments and Tests Prednisone for 20 yrs IBP for 20 yrs. Future Testing and Treatments Planned [facility] rheumatology with next appt July 24, 2021. Trying different medications, but having reactions to them so far. Treatment Goals Patient/Caregiver Goals Pt goal is to decrease hand pain, increase mobility with less pain. Prior Functional Status Baseline Function- ADL's Independent Baseline Function- Mobility Independent Baseline Function- Other Able to write, opening a small bottle (instead of big jar lids). Pt able to write more than a couple sentences before having to stop and shake her hands and without numbness and tingling. Could drive for hours switching hands every 10 minutes because the fingers would go numb and tingly. Current Functional Impairments (Reported) Functional Limitations- ADL's Opening a small jar lid is painful. Writing 2 sentences R hand becomes sore and onset of numbness and tingling. Functional Limitations- Recreation/ Can play drums in scientology (uses Hobbies pinch pharmacist hospital to hold sticks). Functional Limitations- Other D for hours switching hands every 5 minutes because the fingers go numb and tingly. Since off of IBP the knuckles are read and hot/warm to touch and horribly painful. Personal Factors Other Personal Factors That May Effect Lives home alone. Therapy/Recovery Somewhat controlled HBP PT-OP-C Subjective Start: 05/16/21 16:28 Freq: Status: Active Protocol: Document 06/13/21 11:21 LRN (Rec: 06/13/21 12:21 LRN [id number]) OP-PT Subjective Patient Comments Patient Comments Stiff yesterday evening and last night. Thinks the rubberband ex's has caused the stiffness. PT-OP-J Posture/Palpation/Skin Start: 05/16/21 16:28 Freq: Status: Active Protocol: Document 05/18/21 14:36 LRN (Rec: 05/18/21 17:39 LRN [id number]) Posture Evaluation Comments Posture Comments Deformity of bilateral index fingers, PIP jts are curved inward Deformiity of bilateral thumbs , IP jts curved outward. Enlarged joints PIP & DIP joints of fingers and thumbs. Palpation Assessment Location Fingers Palpation Location PIP & DIP joints of thumbs and fingers Palpation Findings Tenderness Palpation Details Swollen jts. PT-OP-K Range of Motion Start: 05/16/21 16:28 Freq: Status: Active Protocol: Document 06/13/21 11:21 LRN (Rec: 06/13/21 12:21 LRN [id number]) Finger Goniometric Range of Motion Finger Left Second PIP Flexion Active (degrees) 84 DIP Flexion Active (70-90 degrees) 58 L Left Third PIP Flexion Active (degrees) 90 DIP Flexion Active (70-90 degrees) 64 L Left Fourth PIP Flexion Active (degrees) 96 DIP Flexion Active (70-90 degrees) 64 L Left Fifth PIP Flexion Active (degrees) 84 DIP Flexion Active (70-90 degrees) 58 L Right Second PIP Flexion Active (degrees) 92 DIP Flexion Active (70-90 degrees) 48 L Right Third PIP Flexion Active (degrees) 100 DIP Flexion Active (70-90 degrees) 66 L Right Fourth PIP Flexion Active (degrees) 100 DIP Flexion Active (70-90 degrees) 60 L Right Fifth PIP Flexion Passive (degrees) 66 DIP Flexion Active (70-90 degrees) 40 L Finger ROM Limitations Comments ROM after Manual therapy, PT-OP-M Strength Start: 05/16/21 16:28 Freq: Status: Active Protocol: Document 06/06/21 11:20 LRN (Rec: 06/06/21 12:13 LRN [id number]) Finger/Thumb Strength Finger Manual Muscle Testing L digits 3-5 Adduction 5 Normal Abduction (fingers T1) 5 Normal PT-OP-Q Treatments Start: 05/16/21 16:28 Freq: Status: Active Protocol: Document 06/13/21 11:21 LRN (Rec: 06/13/21 12:21 LRN [id number]) Therapeutic Exercises Sitting Exercises Finger Ext Sitting Exercise Name Active Finger ext lifts for strengthening Side bilateral Reps/Minutes 8' Finger AB/AD Sitting Exercise Name AB digits 2-5 Side bilateral Reps/Minutes 3' Comments L hand strength for AB/AD is 5 /5 Manual Therapy Treatment Joint Mobilizations L hand Joint PIP & DIP jts Direction AP/PA Body Position Sitting Reps/Duration 15 R hand Joint PIP & DIP jts Direction AP/PA Body Position Sitting Reps/Duration 15 PT-OP-R Modalities Start: 05/16/21 16:28 Freq: Status: Active Protocol: Document 06/13/21 11:21 LRN (Rec: 06/13/21 12:22 LRN [id number]) Paraffin Bath Treatment Left Hand Treatment Technique Dip-immersion Number Wax Layers (layers) 8 Duration (minutes) 5 Patient Tolerance Good PT-OP-T Assessment and Plan Start: 05/16/21 16:28 Freq: Status: Active Protocol: Document 06/13/21 11:21 LRN (Rec: 06/13/21 12:21 LRN [id number]) Physical Therapy Assessment Goals Three Impairment Khadar hand pain Impairment Khadar hand pain rated 5-6/10 non -stop burning pain all the time unless submerging hand in hot water (pain relief 1 hr). Short Term Goal (STG) Improve pharmacist hospital strength with pt able to drive greater than 5' with one hand before onset of pain, numbness and tingling in the hand. STG Duration 06/29/21 Claim Agent Goal (LTG) Decrease khadar hand pain to to no greater than 3/5 at rest. LTG Duration 07/17/21 Two Impairment Decreased khadar hand mobility Impairment PIP flex (deg's): L Hand: Digit : 2-80, 3-90, 4-90, 5-80 PIP flex (deg's): R hand: Digit: 2-94, 3-90, 4-96, 5-88 DIP ext (deg's): L hand: Digit : 2-42, 3-60, 4-58, 5-30 DIP ext (deg's): R hand: Digit : 2-48, 3-56, 4-56, 5-46 Short Term Goal (STG) Increase finger mobility with pt able to open small jar lids with mild difficulty. STG Duration 06/22/21 Fpc Goal (LTG) Pt able to write more than a couple sentences before having to stop and shake her hands and without numbness and tingling. LTG Duration 07/17/21 One Impairment Lacks appropriate self care HEP Short Term Goal (STG) Pt will be educated in wrist strengthening ex's. STG Duration 06/02/21 Fpc Goal (LTG) Pt will be independent in a self care HEP of finger ROM and strengthening ex's. (06/02/21: HEP I/S: Scrapper making ex) (06/09/21: Gripping I/S with green T-Putty issued) LTG Duration 07/17/21 (06/09/21: Progressed ) Progress Towards Goals Progress Comments Finger mobility after manual therapy improved in all PIP & DIP joints except L hand index and little finger. Assessment Summary Assessment Paraffin for L hand due to ring on R hand. Improved finger mobility after manual therapy in all joints except L hand index & little finger. R hand started very stiff, but mobilized quickly with manual therapy. Physical Therapy Plan Frequency and Duration Frequency of Treatment 1x/Week Plan of Care Start Date 05/18/21 Plan of Care End Date 07/17/21 Next Visit Focus/Plan Next Note Type Treatment Note Next Visit Plan Recheck R digits 3-5 MMT for AB/AD. HEP for wrist strengthening ( focus on twisting for opening jars). ROM bilateral hands: Add MCP joints to see if pharmacist hospital mobility improves. Strength bilateral hands: intrinsics, finger flexors, & finger extensors. Wrist strengthening for opening jars and consider adaptive equipment to assist Pain management: Educate pt in joint protection and ROM/ strengthening as tolerated of hand. Modalities: Paraffin Dip, MH, US to wrist ms flexors/ extensors, thenar eminence if pain.
--- NOTE | 2021-06-16 12:24 | PT.OTN ---
Current Diagnoses Rheumatoid arthritis without rheumatoid factor, unspecified site (06/16/21) Unspecified acquired deformity of hand, unspecified hand (06/16/21) Muscle weakness (generalized) (06/16/21) Physical Therapy Treatment Note PT-OP-A Visit Information Start: 05/16/21 16:28 Freq: Status: Active Protocol: Document 06/16/21 11:21 LRN (Rec: 06/16/21 12:22 LRN [id number]) Out-Patient Physical Therapy Visit Information Visit Information Visit Type Treatment Note Visit Start Time 11:21 Visit Stop Time 12:14 Total Visit Minutes 53 Visit Number 6 Evaluation Information Evaluation Date 05/18/21 Precautions Precautions R hand dominant, but naturally was L hand dominant. History of Breast cancer (x2 and several surgeries) Somewhat controlled HBP (~130/ ~80), neck pain from old whiiplash. PT-OP-B Current Condition Start: 05/16/21 16:28 Freq: Status: Active Protocol: Document 05/18/21 14:36 LRN (Rec: 05/18/21 17:39 LRN [id number]) Current Condition History of Current Condition Onset Date 2 months ago Current Complaints Pain in all the hand joints. History of Current Condition Went off handful of IBP and still taking 5 mg of prednisone and now has more pain in both hands. Having lack of mobility and strength because hands are stiff. Prior Treatments and Tests Prednisone for 20 yrs IBP for 20 yrs. Future Testing and Treatments Planned [facility] rheumatology with next appt July 24, 2021. Trying different medications, but having reactions to them so far. Treatment Goals Patient/Caregiver Goals Pt goal is to decrease hand pain, increase mobility with less pain. Prior Functional Status Baseline Function- ADL's Independent Baseline Function- Mobility Independent Baseline Function- Other Able to write, opening a small bottle (instead of big jar lids). Pt able to write more than a couple sentences before having to stop and shake her hands and without numbness and tingling. Could drive for hours switching hands every 10 minutes because the fingers would go numb and tingly. Current Functional Impairments (Reported) Functional Limitations- ADL's Opening a small jar lid is painful. Writing 2 sentences R hand becomes sore and onset of numbness and tingling. Functional Limitations- Recreation/ Can play drums in sikhism (uses Hobbies pinch payroll professional to hold sticks). Functional Limitations- Other D for hours switching hands every 5 minutes because the fingers go numb and tingly. Since off of IBP the knuckles are read and hot/warm to touch and horribly painful. Personal Factors Other Personal Factors That May Effect Lives home alone. Therapy/Recovery Somewhat controlled HBP PT-OP-C Subjective Start: 05/16/21 16:28 Freq: Status: Active Protocol: Document 06/16/21 11:21 LRN (Rec: 06/16/21 12:22 LRN [id number]) OP-PT Subjective Patient Comments Patient Comments Got ring off on R hand, able to do paraffin dip. Since last visit her R hand felt better. PT-OP-J Posture/Palpation/Skin Start: 05/16/21 16:28 Freq: Status: Active Protocol: Document 05/18/21 14:36 LRN (Rec: 05/18/21 17:39 LRN [id number]) Posture Evaluation Comments Posture Comments Deformity of bilateral index fingers, PIP jts are curved inward Deformiity of bilateral thumbs , IP jts curved outward. Enlarged joints PIP & DIP joints of fingers and thumbs. Palpation Assessment Location Fingers Palpation Location PIP & DIP joints of thumbs and fingers Palpation Findings Tenderness Palpation Details Swollen jts. PT-OP-K Range of Motion Start: 05/16/21 16:28 Freq: Status: Active Protocol: Document 06/16/21 11:21 LRN (Rec: 06/16/21 12:22 LRN [id number]) Finger Goniometric Range of Motion Finger Left Second PIP Flexion Active (degrees) 86 DIP Flexion Active (70-90 degrees) 58 L Right Second PIP Flexion Active (degrees) 92 DIP Flexion Active (70-90 degrees) 52 L PT-OP-M Strength Start: 05/16/21 16:28 Freq: Status: Active Protocol: Document 06/06/21 11:20 LRN (Rec: 06/06/21 12:13 LRN [id number]) Finger/Thumb Strength Finger Manual Muscle Testing L digits 3-5 Adduction 5 Normal Abduction (fingers T1) 5 Normal PT-OP-Q Treatments Start: 05/16/21 16:28 Freq: Status: Active Protocol: Document 06/16/21 11:21 LRN (Rec: 06/16/21 12:22 LRN [id number]) Therapeutic Exercises Sitting Exercises Finger flex strengthening Sitting Exercise Name Hook & full payroll professional strengthening Side bilateral Reps/Minutes 6' Finger Ext Sitting Exercise Name Active Finger ext lifts for strengthening Side bilateral Equipment Used Paraffin wax Reps/Minutes 8' DIP/PIP jts Sitting Exercise Name Active & Passive DIP/PIP jts - flex/ext Side bilateral Reps/Minutes 24' Comments Stiff at khadar index finger PIP, DIP jts and L hand 5th digit. Wrist ROM Sitting Exercise Name Ext stretch Side bilateral Reps/Minutes x 2 each Comments Cued to stretch with hand cramping Finger AB/AD Sitting Exercise Name AB digits 2-5, manual resist Side bilateral Reps/Minutes 5x each Comments L 4th digit AB/AD is 3/5, not able to hold thin paper when pullled out PT-OP-R Modalities Start: 05/16/21 16:28 Freq: Status: Active Protocol: Document 06/16/21 11:21 LRN (Rec: 06/16/21 12:22 [facility] [id number]) Paraffin Bath Treatment Right Hand Treatment Technique Dip-immersion Number Wax Layers (layers) 8 Duration (minutes) 5 Patient Tolerance Good Left Hand Treatment Technique Dip-immersion Number Wax Layers (layers) 8 Duration (minutes) 5 Patient Tolerance Good PT-OP-T Assessment and Plan Start: 05/16/21 16:28 Freq: Status: Active Protocol: Document 06/16/21 11:21 LRN (Rec: 06/16/21 12:22 [facility] [id number]) Physical Therapy Assessment Goals Three Impairment Khadar hand pain Impairment Khadar hand pain rated 5-6/10 non -stop burning pain all the time unless submerging hand in hot water (pain relief 1 hr). Short Term Goal (STG) Improve payroll professional strength with pt able to drive greater than 5' with one hand before onset of pain, numbness and tingling in the hand. STG Duration 06/29/21 Long-Term Goal (LTG) Decrease khadar hand pain to to no greater than 3/5 at rest. LTG Duration 07/17/21 Two Impairment Decreased khadar hand mobility Impairment PIP flex (deg's): L Hand: Digit : 2-80, 3-90, 4-90, 5-80 PIP flex (deg's): R hand: Digit: 2-94, 3-90, 4-96, 5-88 DIP ext (deg's): L hand: Digit : 2-42, 3-60, 4-58, 5-30 DIP ext (deg's): R hand: Digit : 2-48, 3-56, 4-56, 5-46 Short Term Goal (STG) Increase finger mobility with pt able to open small jar lids with mild difficulty. STG Duration 06/22/21 Long-Term Goal (LTG) Pt able to write more than a couple sentences before having to stop and shake her hands and without numbness and tingling. LTG Duration 07/17/21 One Impairment Lacks appropriate self care HEP Short Term Goal (STG) Pt will be educated in wrist strengthening ex's. STG Duration 06/02/21 Long-Term Goal (LTG) Pt will be independent in a self care HEP of finger ROM and strengthening ex's. (06/02/21: HEP I/S: Research Kennel Supervisor making ex) (06/09/21: Gripping I/S with green T-Putty issued) LTG Duration 07/17/21 (06/09/21: Progressed ) Assessment Summary Assessment Improved bilateral index finger flex mobility. Pt able to actively touch her index and 5th digit pads to her palm with full payroll professional motion. Physical Therapy Plan Frequency and Duration Frequency of Treatment 1x/Week Plan of Care Start Date 05/18/21 Plan of Care End Date 07/17/21 Next Visit Focus/Plan Next Note Type Treatment Note Next Visit Plan Recheck R digits 3-5 MMT for AB/AD. HEP for wrist strengthening ( focus on twisting for opening jars). ROM bilateral hands: Add MCP joints to see if payroll professional mobility improves. Strength bilateral hands: intrinsics, finger flexors, & finger extensors. Wrist strengthening for opening jars and consider adaptive equipment to assist Pain management: Educate pt in joint protection and ROM/ strengthening as tolerated of hand. Modalities: Paraffin Dip, MH, US to wrist ms flexors/ extensors, thenar eminence if pain.
--- NOTE | 2021-06-19 17:11 | PT.OTN ---
Current Diagnoses Rheumatoid arthritis without rheumatoid factor, unspecified site (06/19/21) Unspecified acquired deformity of hand, unspecified hand (06/19/21) Muscle weakness (generalized) (06/19/21) Physical Therapy Treatment Note PT-OP-A Visit Information Start: 05/16/21 16:28 Freq: Status: Active Protocol: Document 06/19/21 10:37 LRN (Rec: 06/19/21 11:25 LRN [id number]) Out-Patient Physical Therapy Visit Information Visit Information Visit Type Treatment Note Visit Start Time 10:37 Visit Stop Time 11:23 Total Visit Minutes 46 Visit Number 7 Evaluation Information Evaluation Date 05/18/21 Precautions Precautions R hand dominant, but naturally was L hand dominant. History of Breast cancer (x2 and several surgeries) Somewhat controlled HBP (~130/ ~80), neck pain from old whiiplash. PT-OP-B Current Condition Start: 05/16/21 16:28 Freq: Status: Active Protocol: Document 05/18/21 14:36 LRN (Rec: 05/18/21 17:39 LRN [id number]) Current Condition History of Current Condition Onset Date 2 months ago Current Complaints Pain in all the hand joints. History of Current Condition Went off handful of IBP and still taking 5 mg of prednisone and now has more pain in both hands. Having lack of mobility and strength because hands are stiff. Prior Treatments and Tests Prednisone for 20 yrs IBP for 20 yrs. Future Testing and Treatments Planned [facility] rheumatology with next appt July 24, 2021. Trying different medications, but having reactions to them so far. Treatment Goals Patient/Caregiver Goals Pt goal is to decrease hand pain, increase mobility with less pain. Prior Functional Status Baseline Function- ADL's Independent Baseline Function- Mobility Independent Baseline Function- Other Able to write, opening a small bottle (instead of big jar lids). Pt able to write more than a couple sentences before having to stop and shake her hands and without numbness and tingling. Could drive for hours switching hands every 10 minutes because the fingers would go numb and tingly. Current Functional Impairments (Reported) Functional Limitations- ADL's Opening a small jar lid is painful. Writing 2 sentences R hand becomes sore and onset of numbness and tingling. Functional Limitations- Recreation/ Can play drums in zoroastrian (uses Hobbies pinch warehouse picker to hold sticks). Functional Limitations- Other D for hours switching hands every 5 minutes because the fingers go numb and tingly. Since off of IBP the knuckles are read and hot/warm to touch and horribly painful. Personal Factors Other Personal Factors That May Effect Lives home alone. Therapy/Recovery Somewhat controlled HBP PT-OP-C Subjective Start: 05/16/21 16:28 Freq: Status: Active Protocol: Document 06/19/21 10:37 LRN (Rec: 06/19/21 11:25 LRN [id number]) OP-PT Subjective Patient Comments Patient Comments Stiff because didn't do any ex on the holiday. PT-OP-J Posture/Palpation/Skin Start: 05/16/21 16:28 Freq: Status: Active Protocol: Document 05/18/21 14:36 LRN (Rec: 05/18/21 17:39 LRN [id number]) Posture Evaluation Comments Posture Comments Deformity of bilateral index fingers, PIP jts are curved inward Deformiity of bilateral thumbs , IP jts curved outward. Enlarged joints PIP & DIP joints of fingers and thumbs. Palpation Assessment Location Fingers Palpation Location PIP & DIP joints of thumbs and fingers Palpation Findings Tenderness Palpation Details Swollen jts. PT-OP-K Range of Motion Start: 05/16/21 16:28 Freq: Status: Active Protocol: Document 06/16/21 11:21 LRN (Rec: 06/16/21 12:22 LRN [id number]) Finger Goniometric Range of Motion Finger Left Second PIP Flexion Active (degrees) 86 DIP Flexion Active (70-90 degrees) 58 L Right Second PIP Flexion Active (degrees) 92 DIP Flexion Active (70-90 degrees) 52 L PT-OP-M Strength Start: 05/16/21 16:28 Freq: Status: Active Protocol: Document 06/06/21 11:20 LRN (Rec: 06/06/21 12:13 LRN [id number]) Finger/Thumb Strength Finger Manual Muscle Testing L digits 3-5 Adduction 5 Normal Abduction (fingers T1) 5 Normal PT-OP-Q Treatments Start: 05/16/21 16:28 Freq: Status: Active Protocol: Document 06/19/21 10:37 LRN (Rec: 06/19/21 11:25 LRN [id number]) Therapeutic Exercises Sitting Exercises Finger Ext Sitting Exercise Name Active Finger ext lifts for strengthening Side bilateral Reps/Minutes 8' Manual Therapy Treatment Joint Mobilizations L hand Joint PIP & DIP jts f/b Passive flex Direction AP/PA Body Position Sitting Reps/Duration 15' R hand Joint PIP & DIP jts f/b Passive flex Direction AP/PA Body Position Sitting Reps/Duration 15' PT-OP-R Modalities Start: 05/16/21 16:28 Freq: Status: Active Protocol: Document 06/19/21 10:37 LRN (Rec: 06/19/21 17:10 LRN [id number]) Paraffin Bath Comment Treatment Comment Not able to use Paraffin Bath due to high temp of 55 deg's F . PT-OP-T Assessment and Plan Start: 05/16/21 16:28 Freq: Status: Active Protocol: Document 06/19/21 10:37 LRN (Rec: 06/19/21 11:25 LRN [id number]) Physical Therapy Assessment Goals Three Impairment Khadar hand pain Impairment Khadar hand pain rated 5-6/10 non -stop burning pain all the time unless submerging hand in hot water (pain relief 1 hr). Short Term Goal (STG) Improve warehouse picker strength with pt able to drive greater than 5' with one hand before onset of pain, numbness and tingling in the hand. STG Duration 06/29/21 Chiller Operator Goal (LTG) Decrease khadar hand pain to to no greater than 3/5 at rest. LTG Duration 07/17/21 Two Impairment Decreased khadar hand mobility Impairment PIP flex (deg's): L Hand: Digit : 2-80, 3-90, 4-90, 5-80 PIP flex (deg's): R hand: Digit: 2-94, 3-90, 4-96, 5-88 DIP ext (deg's): L hand: Digit : 2-42, 3-60, 4-58, 5-30 DIP ext (deg's): R hand: Digit : 2-48, 3-56, 4-56, 5-46 Short Term Goal (STG) Increase finger mobility with pt able to open small jar lids with mild difficulty. STG Duration 06/22/21 Chiller Operator Goal (LTG) Pt able to write more than a couple sentences before having to stop and shake her hands and without numbness and tingling. LTG Duration 07/17/21 One Impairment Lacks appropriate self care HEP Short Term Goal (STG) Pt will be educated in wrist strengthening ex's. STG Duration 06/02/21 Chiller Operator Goal (LTG) Pt will be independent in a self care HEP of finger ROM and strengthening ex's. (06/02/21: HEP I/S: Seal Extrusion Operator making ex) (06/09/21: Gripping I/S with green T-Putty issued) LTG Duration 07/17/21 (06/09/21: Progressed ) Assessment Summary Assessment Pt was ~80% able to make a fist bilaterally to start. After therapy, with all fingertips, pt able to touch palm of hand. Paraffin dip not available due to temp too high; therefore more time was spent on JMT & passive ROM. Physical Therapy Plan Frequency and Duration Frequency of Treatment 1x/Week Plan of Care Start Date 05/18/21 Plan of Care End Date 07/17/21 Next Visit Focus/Plan Next Note Type Treatment Note Next Visit Plan Try gripping ex to start and end with paraffin was if pt finger mobility to start improved. Recheck R digits 3-5 MMT for AB/AD. HEP for wrist strengthening ( focus on twisting for opening jars). ROM bilateral hands: Add MCP joints to see if warehouse picker mobility improves. Strength bilateral hands: intrinsics, finger flexors, & finger extensors. Wrist strengthening for opening jars and consider adaptive equipment to assist Pain management: Educate pt in joint protection and ROM/ strengthening as tolerated of hand. Modalities: Paraffin Dip, MH, US to wrist ms flexors/ extensors, thenar eminence if pain.
--- NOTE | 2021-07-13 12:28 | PT.OTN ---
Current Diagnoses Rheumatoid arthritis without rheumatoid factor, unspecified site (07/13/21) Unspecified acquired deformity of hand, unspecified hand (07/13/21) Muscle weakness (generalized) (07/13/21) Physical Therapy Treatment Note PT-OP-A Visit Information Start: 05/16/21 16:28 Freq: Status: Active Protocol: Document 07/13/21 11:16 LRN (Rec: 07/13/21 12:22 LRN [id number]) Out-Patient Physical Therapy Visit Information Visit Information Visit Type Treatment Note Visit Start Time 11:16 Visit Stop Time 12:08 Total Visit Minutes 52 Visit Number 8 Evaluation Information Evaluation Date 05/18/21 Precautions Precautions R hand dominant, but naturally was L hand dominant. History of Breast cancer (x2 and several surgeries) Somewhat controlled HBP (~130/ ~80), neck pain from old whiiplash. PT-OP-B Current Condition Start: 05/16/21 16:28 Freq: Status: Active Protocol: Document 05/18/21 14:36 LRN (Rec: 05/18/21 17:39 LRN [id number]) Current Condition History of Current Condition Onset Date 2 months ago Current Complaints Pain in all the hand joints. History of Current Condition Went off handful of IBP and still taking 5 mg of prednisone and now has more pain in both hands. Having lack of mobility and strength because hands are stiff. Prior Treatments and Tests Prednisone for 20 yrs IBP for 20 yrs. Future Testing and Treatments Planned [facility] rheumatology with next appt July 24, 2021. Trying different medications, but having reactions to them so far. Treatment Goals Patient/Caregiver Goals Pt goal is to decrease hand pain, increase mobility with less pain. Prior Functional Status Baseline Function- ADL's Independent Baseline Function- Mobility Independent Baseline Function- Other Able to write, opening a small bottle (instead of big jar lids). Pt able to write more than a couple sentences before having to stop and shake her hands and without numbness and tingling. Could drive for hours switching hands every 10 minutes because the fingers would go numb and tingly. Current Functional Impairments (Reported) Functional Limitations- ADL's Opening a small jar lid is painful. Writing 2 sentences R hand becomes sore and onset of numbness and tingling. Functional Limitations- Recreation/ Can play drums in mandaeism (uses Hobbies pinch practice specialist to hold sticks). Functional Limitations- Other D for hours switching hands every 5 minutes because the fingers go numb and tingly. Since off of IBP the knuckles are read and hot/warm to touch and horribly painful. Personal Factors Other Personal Factors That May Effect Lives home alone. Therapy/Recovery Somewhat controlled HBP PT-OP-C Subjective Start: 05/16/21 16:28 Freq: Status: Active Protocol: Document 07/13/21 11:16 LRN (Rec: 07/13/21 12:22 LRN [id number]) OP-PT Subjective Patient Comments Patient Comments States she thought she was feeling better until she started working in her yard a couple weeks ago. Doesn't use TPutty for practice specialist strengthening due to it makes the fingers really sore. PT-OP-J Posture/Palpation/Skin Start: 05/16/21 16:28 Freq: Status: Active Protocol: Document 05/18/21 14:36 LRN (Rec: 05/18/21 17:39 LRN [id number]) Posture Evaluation Comments Posture Comments Deformity of bilateral index fingers, PIP jts are curved inward Deformiity of bilateral thumbs , IP jts curved outward. Enlarged joints PIP & DIP joints of fingers and thumbs. Palpation Assessment Location Fingers Palpation Location PIP & DIP joints of thumbs and fingers Palpation Findings Tenderness Palpation Details Swollen jts. PT-OP-K Range of Motion Start: 05/16/21 16:28 Freq: Status: Active Protocol: Document 06/16/21 11:21 LRN (Rec: 06/16/21 12:22 LRN [id number]) Finger Goniometric Range of Motion Finger Left Second PIP Flexion Active (degrees) 86 DIP Flexion Active (70-90 degrees) 58 L Right Second PIP Flexion Active (degrees) 92 DIP Flexion Active (70-90 degrees) 52 L PT-OP-M Strength Start: 05/16/21 16:28 Freq: Status: Active Protocol: Document 07/13/21 11:16 LRN (Rec: 07/13/21 12:22 LRN [id number]) Hand Owner Manager/Pinch Strength Hand Strength Left Comments LBS: 46, 46, 45 kgs: 22, 22, 20; avg is 21.3 kg (norm for 65-69: 18.6) Right Comments LBS: 47, 55, 55 kgs: 22, 25, 25; avg is 24 kg (norm for ages 65-69: 22.5 ) PT-OP-Q Treatments Start: 05/16/21 16:28 Freq: Status: Active Protocol: Document 07/13/21 11:16 LRN (Rec: 07/13/21 12:22 LRN [id number]) Therapeutic Exercises Sitting Exercises Finger flex strengthening Sitting Exercise Name Hook & full practice specialist strengthening Side bilateral Reps/Minutes 4' Manual Therapy Treatment Joint Mobilizations L hand Joint PIP & DIP jts f/b Passive flex Direction AP/PA Body Position Sitting Reps/Duration 15' R hand Joint PIP & DIP jts f/b Passive flex Direction AP/PA Body Position Sitting Reps/Duration 15' Manual Techniques MWM of R index finger, PIP Type MWM Body Location R Prox 1st IP med lateral glide/distal PIP of 2nd IP medial glide Body Position Sitting Reps/Duration 5' Self-Care/Home Management Treatment Education Patient Education Home Exercise Program Activities Self-Care/Home Management Activities Issued & reviewed HEP: TBand wrist flex/ext/UD/RD and stretch to wrist flexors. PT-OP-R Modalities Start: 05/16/21 16:28 Freq: Status: Active Protocol: Document 07/13/21 11:16 LRN (Rec: 07/13/21 12:22 LRN [id number]) Paraffin Bath Treatment Right Hand Treatment Technique Dip-immersion Number Wax Layers (layers) 8 Duration (minutes) 5 Patient Tolerance Good Left Hand Treatment Technique Dip-immersion Number Wax Layers (layers) 8 Duration (minutes) 5 Patient Tolerance Good PT-OP-T Assessment and Plan Start: 05/16/21 16:28 Freq: Status: Active Protocol: Document 07/13/21 11:16 LRN (Rec: 07/13/21 12:22 LRN [id number]) Physical Therapy Assessment Goals Three Impairment Khadar hand pain Impairment Khadar hand pain rated 5-6/10 non -stop burning pain all the time unless submerging hand in hot water (pain relief 1 hr). Short Term Goal (STG) Improve practice specialist strength with pt able to drive greater than 5' with one hand before onset of pain, numbness and tingling in the hand. STG Duration 06/29/21 Senior Care Goal (LTG) Decrease khadar hand pain to to no greater than 3/5 at rest. LTG Duration 07/17/21 Two Impairment Decreased khadar hand mobility Impairment PIP flex (deg's): L Hand: Digit : 2-80, 3-90, 4-90, 5-80 PIP flex (deg's): R hand: Digit: 2-94, 3-90, 4-96, 5-88 DIP ext (deg's): L hand: Digit : 2-42, 3-60, 4-58, 5-30 DIP ext (deg's): R hand: Digit : 2-48, 3-56, 4-56, 5-46 Short Term Goal (STG) Increase finger mobility with pt able to open small jar lids with mild difficulty. STG Duration 06/22/21 Senior Care Goal (LTG) Pt able to write more than a couple sentences before having to stop and shake her hands and without numbness and tingling. LTG Duration 07/17/21 One Impairment Lacks appropriate self care HEP Short Term Goal (STG) Pt will be educated in wrist strengthening ex's. (07/13/21: HEP: TBand wrist flex/ext/UD/RD and stretch to wrist flexors) STG Duration 06/02/21 (07/13/21: MET GOAL) Mica Miner Blasting Goal (LTG) Pt will be independent in a self care HEP of finger ROM and strengthening ex's. (06/02/21: HEP I/S: Owner Manager making ex) (06/09/21: Gripping I/S with green T-Putty issued) LTG Duration 07/17/21 (06/09/21: Progressed ) Assessment Summary Assessment Pt finger tips in hands able to touch palm except for R index finger, limited due to lack of flex of PIP jt from arthritis. Flex of R index finger PIP jt was less painful with MWM at the joint with medial glide above the joint and lateral glide below the joint with flex. Physical Therapy Plan Next Visit Focus/Plan Next Note Type Treatment Note Next Visit Plan Assess if MWM of R index finger for flex is beneficial with finger flex and if less painful try taping to improve painfree AROM (flex). Assess for practice specialist strength while driving and writing sentences . Try strengthening (wrist & practice specialist) ex to start and end with paraffin and assess if greater mobility gained doing ex first. Review wrist strengthening ex & add HEP for wrist twisting for opening jars and consider adaptive equipment to assist. Recheck R digits 3-5 MMT for AB/AD. ROM bilateral hands: Add MCP joints to see if practice specialist mobility improves. Progress strengthening bilateral hands: intrinsics, finger flexors, & finger extensors. Pain management: Educate pt in joint protection and ROM/ strengthening as tolerated of hand. Modalities: Paraffin Dip, MH.
--- NOTE | 2021-07-21 16:21 | PT.OTN ---
Current Diagnoses Rheumatoid arthritis without rheumatoid factor, unspecified site (07/21/21) Unspecified acquired deformity of hand, unspecified hand (07/21/21) Muscle weakness (generalized) (07/21/21) Physical Therapy Treatment Note PT-OP-A Visit Information Start: 05/16/21 16:28 Freq: Status: Active Protocol: Document 07/21/21 13:53 LRN (Rec: 07/21/21 14:36 LRN [id number]) Out-Patient Physical Therapy Visit Information Visit Information Visit Type Progress Note Visit Start Time 13:53 Visit Stop Time 14:31 Total Visit Minutes 38 Visit Number 9 Evaluation Information Evaluation Date 05/18/21 Precautions Precautions R hand dominant, but naturally was L hand dominant. History of Breast cancer (x2 and several surgeries) Somewhat controlled HBP (~130/ ~80), neck pain from old whiiplash. PT-OP-B Current Condition Start: 05/16/21 16:28 Freq: Status: Active Protocol: Document 05/18/21 14:36 LRN (Rec: 05/18/21 17:39 LRN [id number]) Current Condition History of Current Condition Onset Date 2 months ago Current Complaints Pain in all the hand joints. History of Current Condition Went off handful of IBP and still taking 5 mg of prednisone and now has more pain in both hands. Having lack of mobility and strength because hands are stiff. Prior Treatments and Tests Prednisone for 20 yrs IBP for 20 yrs. Future Testing and Treatments Planned [facility] rheumatology with next appt July 24, 2021. Trying different medications, but having reactions to them so far. Treatment Goals Patient/Caregiver Goals Pt goal is to decrease hand pain, increase mobility with less pain. Prior Functional Status Baseline Function- ADL's Independent Baseline Function- Mobility Independent Baseline Function- Other Able to write, opening a small bottle (instead of big jar lids). Pt able to write more than a couple sentences before having to stop and shake her hands and without numbness and tingling. Could drive for hours switching hands every 10 minutes because the fingers would go numb and tingly. Current Functional Impairments (Reported) Functional Limitations- ADL's Opening a small jar lid is painful. Writing 2 sentences R hand becomes sore and onset of numbness and tingling. Functional Limitations- Recreation/ Can play drums in scientologist (uses Hobbies pinch imaging administrator to hold sticks). Functional Limitations- Other D for hours switching hands every 5 minutes because the fingers go numb and tingly. Since off of IBP the knuckles are read and hot/warm to touch and horribly painful. Personal Factors Other Personal Factors That May Effect Lives home alone. Therapy/Recovery Somewhat controlled HBP PT-OP-C Subjective Start: 05/16/21 16:28 Freq: Status: Active Protocol: Document 07/21/21 13:53 LRN (Rec: 07/21/21 14:36 LRN [id number]) OP-PT Subjective Patient Comments Patient Comments Just got back from the cabin, doing a lot of weeding and tool raking. No change in ability to grasp tools. Saturday will see the supervisor liquid yeast. States her driving is just as difficult holding onto the steering wheel with hands have to switch hands PT-OP-J Posture/Palpation/Skin Start: 05/16/21 16:28 Freq: Status: Active Protocol: Document 05/18/21 14:36 LRN (Rec: 05/18/21 17:39 LRN [id number]) Posture Evaluation Comments Posture Comments Deformity of bilateral index fingers, PIP jts are curved inward Deformiity of bilateral thumbs , IP jts curved outward. Enlarged joints PIP & DIP joints of fingers and thumbs. Palpation Assessment Location Fingers Palpation Location PIP & DIP joints of thumbs and fingers Palpation Findings Tenderness Palpation Details Swollen jts. PT-OP-K Range of Motion Start: 05/16/21 16:28 Freq: Status: Active Protocol: Document 06/16/21 11:21 LRN (Rec: 06/16/21 12:22 LRN [id number]) Finger Goniometric Range of Motion Finger Left Second PIP Flexion Active (degrees) 86 DIP Flexion Active (70-90 degrees) 58 L Right Second PIP Flexion Active (degrees) 92 DIP Flexion Active (70-90 degrees) 52 L PT-OP-M Strength Start: 05/16/21 16:28 Freq: Status: Active Protocol: Document 07/21/21 13:53 LRN (Rec: 07/21/21 14:36 LRN [id number]) Hand Apprentice Cosmetologist/Pinch Strength Hand Strength Left Comments LBS: 50, 47, 46 kgs: 23, 22, 21 ............... Right Comments LBS: 60, 60, 60 kgs: 28, 28, 28 ...................... PT-OP-Q Treatments Start: 05/16/21 16:28 Freq: Status: Active Protocol: Document 07/21/21 13:53 LRN (Rec: 07/21/21 14:36 [facility] [id number]) Therapeutic Exercises Sitting Exercises Twisting Sitting Exercise Name Twisting with flexbar Side left Reps/Minutes 2' Sentence writing Sitting Exercise Name Sentence writing Side right Equipment Used wide pen Reps/Minutes 3' Comments 5-6 sentences prior to hand bothering her Finger flex strengthening Sitting Exercise Name Gripping: ROM & strengthening Side bilateral Reps/Minutes 5' Comments Apprentice Cosmetologist strength test Finger Ext Sitting Exercise Name Active Finger ext lifts for strengthening Side bilateral Reps/Minutes 8' DIP/PIP jts Sitting Exercise Name Active & Passive DIP/PIP jts - flex/ext Side bilateral Reps/Minutes 10' Comments Stiff at khadar index finger PIP, DIP jts and L hand 5th digit. PT-OP-R Modalities Start: 05/16/21 16:28 Freq: Status: Active Protocol: Document 07/21/21 13:53 LRN (Rec: 07/21/21 14:36 [facility] [id number]) Paraffin Bath Treatment Right Hand Treatment Technique Dip-immersion Number Wax Layers (layers) 8 Duration (minutes) 5 Patient Tolerance Good Left Hand Treatment Technique Dip-immersion Number Wax Layers (layers) 8 Duration (minutes) 5 Patient Tolerance Good PT-OP-T Assessment and Plan Start: 05/16/21 16:28 Freq: Status: Active Protocol: Document 07/21/21 13:53 LRN (Rec: 07/21/21 14:36 [facility] [id number]) Physical Therapy Assessment Goals Three Impairment Khadar hand pain Impairment Khadar hand pain rated 5-6/10 non -stop burning pain all the time unless submerging hand in hot water (pain relief 1 hr). Short Term Goal (STG) Improve imaging administrator strength with pt able to drive greater than 5' with one hand before onset of pain, numbness and tingling in the hand. (07/21/21: Still having nonstop burning pain due to not taking IBP anymore. Able to hold wheel through 1 song ~ 3' long). STG Duration 06/29/21 (07/21/21: No change) Fdc Goal (LTG) Decrease khadar hand pain to to no greater than 3/5 at rest. LTG Duration 07/17/21 Two Impairment Decreased khadar hand mobility Impairment PIP flex (deg's): L Hand: Digit : 2-80, 3-90, 4-90, 5-80 PIP flex (deg's): R hand: Digit: 2-94, 3-90, 4-96, 5-88 DIP ext (deg's): L hand: Digit : 2-42, 3-60, 4-58, 5-30 DIP ext (deg's): R hand: Digit : 2-48, 3-56, 4-56, 5-46 Short Term Goal (STG) Increase finger mobility with pt able to open small jar lids with mild difficulty. ( STG Duration 06/22/21 (07/21/21: Difficulty opening small jar lids) Fdc Goal (LTG) Pt able to write more than a couple sentences before having to stop and shake her hands and without numbness and tingling. (07/21/21: Pt able to write 5- 6 sentences before having to stop before onset of pain, numbness, tingling). LTG Duration 07/17/21 (07/21/21: MET GOAL) One Impairment Lacks appropriate self care HEP Short Term Goal (STG) Pt will be educated in wrist strengthening ex's. (07/13/21: HEP: TBand wrist flex/ext/UD/RD and stretch to wrist flexors) STG Duration 06/02/21 (07/13/21: MET GOAL) Solar Sales Associate Goal (LTG) Pt will be independent in a self care HEP of finger ROM and strengthening ex's. (06/02/21: HEP I/S: Apprentice Cosmetologist making ex) (06/09/21: Gripping I/S with green T-Putty issued) (07/21/21: I/S pt to practice jar opening) LTG Duration 07/17/21 (06/09/21: Progressed ) Assessment Summary Assessment Pt reporting no change in pain complaints (constant burning pain unless under hot water). No improvement with driving tolerance. Functionally she is having difficulty opening jars. She shows improved R imaging administrator strength, no improvement with L imaging administrator strength. She is now able to make a fist bilaterally with finger tips touching her palm after treatment, except for her index finger on the R hand. I recommend another 4-6 weeks of therapy for focus on endurance strengthening for gripping to help her improve her driving and jar opening ability now that her finger mobility has improved. Physical Therapy Plan Frequency and Duration Frequency of Treatment 1x/Week Plan of Care Start Date 07/21/21 Plan of Care End Date 09/19/21 Next Visit Focus/Plan Next Note Type Treatment Note Next Visit Plan Start with finger assessment ( see MWM below) and then gripping endurance strengthening with UBE or biodex. Assess MWM of R index finger for flex is beneficial with finger flex and if less painful try taping to improve painfree AROM (flex). Strengthening (wrist & imaging administrator) and end with paraffin with pt ending with self finger mobilization. Review wrist strengthening ex & add HEP for wrist twisting for opening jars and recommend adaptive equipment to assist. Recheck R digits 3-5 MMT for AB/AD. ROM bilateral hands: Add MCP joints to see if imaging administrator mobility improves. Modalities: Paraffin Dip, MH.
--- NOTE | 2021-07-21 16:21 | PT.OPPOC ---
Physical, Occupational & Speech Therapy At [facility] Current Diagnoses Rheumatoid arthritis without rheumatoid factor, unspecified site (07/21/21) Unspecified acquired deformity of hand, unspecified hand (07/21/21) Muscle weakness (generalized) (07/21/21) Visit Care Team Role Provider Type Mica Pace MD Family Provider Non-Staff Primary Care Provider Specialty: Internal Medicine Address: [address] [place] [address], [address] Email: Fabien Saucedo PA-C Attending Provider Non-Staff Referring Provider Specialty: Medical Address: [address] [place] [address], [id number] Email: Plan Of Care PT-OP-T Assessment and Plan Start: 05/16/21 16:28 Freq: Status: Active Protocol: Document 07/21/21 13:53 LRN (Rec: 07/21/21 14:36 LRN [id number]) Physical Therapy Assessment Goals Three Impairment Rebecca hand pain Impairment Rebecca hand pain rated 5-6/10 non -stop burning pain all the time unless submerging hand in hot water (pain relief 1 hr). Short Term Goal (STG) Improve local telephone operator strength with pt able to drive greater than 5' with one hand before onset of pain, numbness and tingling in the hand. (07/21/21: Still having nonstop burning pain due to not taking IBP anymore. Able to hold wheel through 1 song ~ 3' long). STG Duration 06/29/21 (07/21/21: No change) Jewelry Mechanic Goal (LTG) Decrease rebecca hand pain to to no greater than 3/5 at rest. LTG Duration 07/17/21 Two Impairment Decreased rebecca hand mobility Impairment PIP flex (deg's): L Hand: Digit : 2-80, 3-90, 4-90, 5-80 PIP flex (deg's): R hand: Digit: 2-94, 3-90, 4-96, 5-88 DIP ext (deg's): L hand: Digit : 2-42, 3-60, 4-58, 5-30 DIP ext (deg's): R hand: Digit : 2-48, 3-56, 4-56, 5-46 Short Term Goal (STG) Increase finger mobility with pt able to open small jar lids with mild difficulty. ( STG Duration 06/22/21 (07/21/21: Difficulty opening small jar lids) Jewelry Mechanic Goal (LTG) Pt able to write more than a couple sentences before having to stop and shake her hands and without numbness and tingling. (07/21/21: Pt able to write 5- 6 sentences before having to stop before onset of pain, numbness, tingling). LTG Duration 07/17/21 (07/21/21: MET GOAL) One Impairment Lacks appropriate self care HEP Short Term Goal (STG) Pt will be educated in wrist strengthening ex's. (07/13/21: HEP: TBand wrist flex/ext/UD/RD and stretch to wrist flexors) STG Duration 06/02/21 (07/13/21: MET GOAL) Care Home Goal (LTG) Pt will be independent in a self care HEP of finger ROM and strengthening ex's. (06/02/21: HEP I/S: Travelers' Aid Worker making ex) (06/09/21: Gripping I/S with green T-Putty issued) (07/21/21: I/S pt to practice jar opening) LTG Duration 07/17/21 (06/09/21: Progressed ) Assessment Summary Assessment Pt reporting no change in pain complaints (constant burning pain unless under hot water). No improvement with driving tolerance. Functionally she is having difficulty opening jars. She shows improved R local telephone operator strength, no improvement with L local telephone operator strength. She is now able to make a fist bilaterally with finger tips touching her palm after treatment, except for her index finger on the R hand. I recommend another 4-6 weeks of therapy for focus on endurance strengthening for gripping to help her improve her driving and jar opening ability now that her finger mobility has improved. Physical Therapy Plan Frequency and Duration Frequency of Treatment 1x/Week Plan of Care Start Date 07/21/21 Plan of Care End Date 09/19/21 Next Visit Focus/Plan Next Note Type Treatment Note Next Visit Plan Start with finger assessment ( see MWM below) and then gripping endurance strengthening with UBE or biodex. Assess MWM of R index finger for flex is beneficial with finger flex and if less painful try taping to improve painfree AROM (flex). Strengthening (wrist & local telephone operator) and end with paraffin with pt ending with self finger mobilization. Review wrist strengthening ex & add HEP for wrist twisting for opening jars and recommend adaptive equipment to assist. Recheck R digits 3-5 MMT for AB/AD. ROM bilateral hands: Add MCP joints to see if local telephone operator mobility improves. Modalities: Paraffin Asher, NATE. Plan of Care Dates Plan of Care Start Date 07/21/21 Plan of Care End Date 09/19/21 Electronically Signed by: Nori Duncan, PT 07/21/21 [id number] If you are in agreement with this Plan of Care, please return a signed and dated copy. I have reviewed this Plan of Care and certify that the skilled therapy services above are required to meet the patient?s needs. Physician Signature Date Printed Name and Credentials Clinical Instructor Signature Printed Name and Credentials
--- NOTE | 2021-09-08 14:29 | PT.OTN ---
Current Diagnoses Rheumatoid arthritis without rheumatoid factor, unspecified site (09/08/21) Unspecified acquired deformity of hand, unspecified hand (09/08/21) Muscle weakness (generalized) (09/08/21) Physical Therapy Treatment Note PT-OP-A Visit Information Start: 05/16/21 16:28 Freq: Status: Active Protocol: Document 09/08/21 13:03 LRN (Rec: 09/08/21 14:29 LRN [id number]) Out-Patient Physical Therapy Visit Information Visit Information Visit Type Treatment Note Visit Start Time 13:03 Visit Stop Time 13:47 Total Visit Minutes 44 Visit Number 10 Evaluation Information Evaluation Date 05/18/21 Precautions Precautions R hand dominant, but naturally was L hand dominant. History of Breast cancer (x2 and several surgeries) Somewhat controlled HBP (~130/ ~80), neck pain from old whiiplash. PT-OP-B Current Condition Start: 05/16/21 16:28 Freq: Status: Active Protocol: Document 05/18/21 14:36 LRN (Rec: 05/18/21 17:39 LRN [id number]) Current Condition History of Current Condition Onset Date 2 months ago Current Complaints Pain in all the hand joints. History of Current Condition Went off handful of IBP and still taking 5 mg of prednisone and now has more pain in both hands. Having lack of mobility and strength because hands are stiff. Prior Treatments and Tests Prednisone for 20 yrs IBP for 20 yrs. Future Testing and Treatments Planned [facility] rheumatology with next appt July 24, 2021. Trying different medications, but having reactions to them so far. Treatment Goals Patient/Caregiver Goals Pt goal is to decrease hand pain, increase mobility with less pain. Prior Functional Status Baseline Function- ADL's Independent Baseline Function- Mobility Independent Baseline Function- Other Able to write, opening a small bottle (instead of big jar lids). Pt able to write more than a couple sentences before having to stop and shake her hands and without numbness and tingling. Could drive for hours switching hands every 10 minutes because the fingers would go numb and tingly. Current Functional Impairments (Reported) Functional Limitations- ADL's Opening a small jar lid is painful. Writing 2 sentences R hand becomes sore and onset of numbness and tingling. Functional Limitations- Recreation/ Can play drums in buddhist (uses Hobbies pinch machine heel sprayer to hold sticks). Functional Limitations- Other D for hours switching hands every 5 minutes because the fingers go numb and tingly. Since off of IBP the knuckles are read and hot/warm to touch and horribly painful. Personal Factors Other Personal Factors That May Effect Lives home alone. Therapy/Recovery Somewhat controlled HBP PT-OP-C Subjective Start: 05/16/21 16:28 Freq: Status: Active Protocol: Document 09/08/21 13:03 LRN (Rec: 09/08/21 14:29 LRN [id number]) OP-PT Subjective Patient Comments Patient Comments States the cortisone injection on 07/24/21 (PIP jt of index fingers bilaterally), helped the L index finger for 3 weeks, R index finger felt good for the day but the next day it swelled up and was painful for days. PT-OP-J Posture/Palpation/Skin Start: 05/16/21 16:28 Freq: Status: Active Protocol: Document 05/18/21 14:36 LRN (Rec: 05/18/21 17:39 LRN [id number]) Posture Evaluation Comments Posture Comments Deformity of bilateral index fingers, PIP jts are curved inward Deformiity of bilateral thumbs , IP jts curved outward. Enlarged joints PIP & DIP joints of fingers and thumbs. Palpation Assessment Location Fingers Palpation Location PIP & DIP joints of thumbs and fingers Palpation Findings Tenderness Palpation Details Swollen jts. PT-OP-K Range of Motion Start: 05/16/21 16:28 Freq: Status: Active Protocol: Document 09/08/21 13:03 LRN (Rec: 09/08/21 14:29 LRN [id number]) Finger Goniometric Range of Motion Finger Left Second PIP Flexion Active (degrees) 84 DIP Flexion Active (70-90 degrees) 54 L Left Third PIP Flexion Active (degrees) 86 DIP Flexion Active (70-90 degrees) 60 L Left Fourth PIP Flexion Active (degrees) 104 DIP Flexion Active (70-90 degrees) 50 L Left Fifth PIP Flexion Active (degrees) 88 DIP Flexion Active (70-90 degrees) 26 L Right Second PIP Flexion Active (degrees) 84 DIP Flexion Active (70-90 degrees) 56 L Right Third PIP Flexion Active (degrees) 100 DIP Flexion Active (70-90 degrees) 64 L Right Fourth PIP Flexion Active (degrees) 100 DIP Flexion Active (70-90 degrees) 64 L Right Fifth PIP Flexion Active (degrees) 92 DIP Flexion Active (70-90 degrees) 60 L PT-OP-M Strength Start: 05/16/21 16:28 Freq: Status: Active Protocol: Document 07/21/21 13:53 LRN (Rec: 07/21/21 14:36 LRN [id number]) Hand Insurance Account Specialist/Pinch Strength Hand Strength Left Comments LBS: 50, 47, 46 kgs: 23, 22, 21 ............... Right Comments LBS: 60, 60, 60 kgs: 28, 28, 28 ...................... PT-OP-Q Treatments Start: 05/16/21 16:28 Freq: Status: Active Protocol: Document 09/08/21 13:03 LRN (Rec: 09/08/21 14:29 [facility] [id number]) Therapeutic Exercises Sitting Exercises Finger Ext Sitting Exercise Name Active finger extension Side bilateral Reps/Minutes 4' DIP/PIP jts Sitting Exercise Name Active & Passive DIP/PIP jts - flex/ext Side bilateral Reps/Minutes 10' Comments Stiff at khadar index finger PIP, DIP jts and L hand 5th digit. Manual Therapy Treatment Joint Mobilizations L hand Joint PIP & DIP jts f/b Passive flex Direction AP/PA Body Position Sitting Reps/Duration 10' R hand Joint PIP & DIP jts f/b Passive flex Direction AP/PA Body Position Sitting Reps/Duration 10' PT-OP-R Modalities Start: 05/16/21 16:28 Freq: Status: Active Protocol: Document 09/08/21 13:03 LRN (Rec: 09/08/21 14:29 LR [id number]) Paraffin Bath Treatment Right Hand Treatment Technique Dip-immersion Number Wax Layers (layers) 8 Duration (minutes) 5 Patient Tolerance Good Left Hand Treatment Technique Dip-immersion Number Wax Layers (layers) 8 Duration (minutes) 5 Patient Tolerance Good PT-OP-T Assessment and Plan Start: 05/16/21 16:28 Freq: Status: Active Protocol: Document 09/08/21 13:03 LRN (Rec: 09/08/21 14:29 [facility] [id number]) Physical Therapy Assessment Goals Three Impairment Khadar hand pain Impairment Khadar hand pain rated 5-6/10 non -stop burning pain all the time unless submerging hand in hot water (pain relief 1 hr). Short Term Goal (STG) Improve machine heel sprayer strength with pt able to drive greater than 5' with one hand before onset of pain, numbness and tingling in the hand. (07/21/21: Still having nonstop burning pain due to not taking IBP anymore. Able to hold wheel through 1 song ~ 3' long). (09/08/21: Pt able to drive ~1' before pain onset in hand). STG Duration 06/29/21 (09/08/21: NOT MET GOAL. No change since 07/03/21) Skilled Nursing Goal (LTG) Decrease khadar hand pain to to no greater than 3/5 at rest. (09/08/21: Pain ranges 3.5-8/10 ) LTG Duration 07/17/21 (09/08/21: NOT MET GOAL) Two Impairment Decreased khadar hand mobility Impairment PIP flex (deg's): L Hand: Digit : 2-80, 3-90, 4-90, 5-80 PIP flex (deg's): R hand: Digit: 2-94, 3-90, 4-96, 5-88 DIP ext (deg's): L hand: Digit : 2-42, 3-60, 4-58, 5-30 DIP ext (deg's): R hand: Digit : 2-48, 3-56, 4-56, 5-46 Short Term Goal (STG) Increase finger mobility with pt able to open small jar lids with mild difficulty. (09/08/21: Variable minor improvement in finger ROM, cont'd difficulty opening small jar lids) STG Duration 06/22/21 (09/08/21: NOT MET GOAL, no change since 07/21/21) Skilled Nursing Goal (LTG) Pt able to write more than a couple sentences before having to stop and shake her hands and without numbness and tingling. (07/21/21: Pt able to write 5- 6 sentences before having to stop before onset of pain, numbness, tingling). (09/08/21: [place] is worse) LTG Duration 07/17/21 (07/21/21: MET GOAL) One Impairment Lacks appropriate self care HEP Short Term Goal (STG) Pt will be educated in wrist strengthening ex's. (07/13/21: HEP: TBand wrist flex/ext/UD/RD and stretch to wrist flexors) STG Duration 06/02/21 (07/13/21: MET GOAL) Skilled Nursing Goal (LTG) Pt will be independent in a self care HEP of finger ROM and strengthening ex's. (06/02/21: HEP I/S: Insurance Account Specialist making ex) (06/09/21: Gripping I/S with green T-Putty issued) (07/21/21: I/S pt to practice jar opening) LTG Duration 07/17/21 (09/08/21: GOAL MET for current status) Progress Towards Goals Progress Comments Variable minor improvement in finger PIP & DIP flex AROM. Assessment Summary Assessment Pt attends after ~6 weeks s/p cortisone injections in her bilateral index finger PIP joints. She demonstrates no improvement but same mobility at the index finger of the L hand PIP jt and no improvement in the R hand. In the index fingers active flexion is ( deg's): Left: PIP jt 84 previously to 84, DIP jt 58 previoiusly to 54 ; Right: PIP jt 92 previously to 84 , DIP jt 48 previously to 56. The pt has shown no improvement in her finger AROM after cortisone injection, taking a 6 wk break from physical therapy, and she indicates no improvement in the pain in her hands or improvement in function. Overall the pt did show some improvement in function of gripping and being able to write during her course of PT. 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 The pt is agreeable ; therefore the pt will be discharged today to her HEP. Physical Therapy Plan Discharge Physical Therapy Discharge Reasons [place] in Progress Discharge Comments Pt is appropriate for physical therapy in the future if other treatment plans are unsuccessful. Thank you for your referral.
--- NOTE | 2021-09-08 15:37 | PT.OTN ---
Current Diagnoses Rheumatoid arthritis without rheumatoid factor, unspecified site (09/08/21) Unspecified acquired deformity of hand, unspecified hand (09/08/21) Muscle weakness (generalized) (09/08/21) Physical Therapy Treatment Note PT-OP-A Visit Information Start: 05/16/21 16:28 Freq: Status: Active Protocol: Document 09/08/21 13:03 LRN (Rec: 09/08/21 14:29 LRN [id number]) Out-Patient Physical Therapy Visit Information Visit Information Visit Type Treatment Note Visit Start Time 13:03 Visit Stop Time 13:47 Total Visit Minutes 44 Visit Number 10 Evaluation Information Evaluation Date 05/18/21 Precautions Precautions R hand dominant, but naturally was L hand dominant. History of Breast cancer (x2 and several surgeries) Somewhat controlled HBP (~130/ ~80), neck pain from old whiiplash. PT-OP-B Current Condition Start: 05/16/21 16:28 Freq: Status: Active Protocol: Document 05/18/21 14:36 LRN (Rec: 05/18/21 17:39 LRN [id number]) Current Condition History of Current Condition Onset Date 2 months ago Current Complaints Pain in all the hand joints. History of Current Condition Went off handful of IBP and still taking 5 mg of prednisone and now has more pain in both hands. Having lack of mobility and strength because hands are stiff. Prior Treatments and Tests Prednisone for 20 yrs IBP for 20 yrs. Future Testing and Treatments Planned [facility] rheumatology with next appt July 24, 2021. Trying different medications, but having reactions to them so far. Treatment Goals Patient/Caregiver Goals Pt goal is to decrease hand pain, increase mobility with less pain. Prior Functional Status Baseline Function- ADL's Independent Baseline Function- Mobility Independent Baseline Function- Other Able to write, opening a small bottle (instead of big jar lids). Pt able to write more than a couple sentences before having to stop and shake her hands and without numbness and tingling. Could drive for hours switching hands every 10 minutes because the fingers would go numb and tingly. Current Functional Impairments (Reported) Functional Limitations- ADL's Opening a small jar lid is painful. Writing 2 sentences R hand becomes sore and onset of numbness and tingling. 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 Functional Limitations- Other D for hours switching hands every 5 minutes because the fingers go numb and tingly. Since off of IBP the knuckles are read and hot/warm to touch and horribly painful. Personal Factors Other Personal Factors That May Effect Lives home alone. Therapy/Recovery Somewhat controlled HBP PT-OP-C Subjective Start: 05/16/21 16:28 Freq: Status: Active Protocol: Document 09/08/21 13:03 LRN (Rec: 09/08/21 14:29 LRN [id number]) OP-PT Subjective Patient Comments Patient Comments States the cortisone injection on 07/24/21 (PIP jt of index fingers bilaterally), helped the L index finger for 3 weeks, R index finger felt good for the day but the next day it swelled up and was painful for days. Patient Questionnaires Quick Dash- Upper Extremity Quick Dash UE Score 45.45 Quick Dash UE Impairment 40 to 59% Impaired (Score 40- 59) PT-OP-J Posture/Palpation/Skin Start: 05/16/21 16:28 Freq: Status: Active Protocol: Document 05/18/21 14:36 LRN (Rec: 05/18/21 17:39 LRN [id number]) Posture Evaluation Comments Posture Comments Deformity of bilateral index fingers, PIP jts are curved inward Deformiity of bilateral thumbs , IP jts curved outward. Enlarged joints PIP & DIP joints of fingers and thumbs. Palpation Assessment Location Fingers Palpation Location PIP & DIP joints of thumbs and fingers Palpation Findings Tenderness Palpation Details Swollen jts. PT-OP-K Range of Motion Start: 05/16/21 16:28 Freq: Status: Active Protocol: Document 09/08/21 13:03 LRN (Rec: 09/08/21 14:29 LRN [id number]) Finger Goniometric Range of Motion Finger Left Second PIP Flexion Active (degrees) 84 DIP Flexion Active (70-90 degrees) 54 L Left Third PIP Flexion Active (degrees) 86 DIP Flexion Active (70-90 degrees) 60 L Left Fourth PIP Flexion Active (degrees) 104 DIP Flexion Active (70-90 degrees) 50 L Left Fifth PIP Flexion Active (degrees) 88 DIP Flexion Active (70-90 degrees) 26 L Right Second PIP Flexion Active (degrees) 84 DIP Flexion Active (70-90 degrees) 56 L Right Third PIP Flexion Active (degrees) 100 DIP Flexion Active (70-90 degrees) 64 L Right Fourth PIP Flexion Active (degrees) 100 DIP Flexion Active (70-90 degrees) 64 L Right Fifth PIP Flexion Active (degrees) 92 DIP Flexion Active (70-90 degrees) 60 L PT-OP-M Strength Start: 05/16/21 16:28 Freq: Status: Active Protocol: Document 07/21/21 13:53 LRN (Rec: 07/21/21 14:36 LRN [id number]) Hand School Guard/Pinch Strength Hand Strength Left Comments LBS: 50, 47, 46 kgs: 23, 22, 21 ............... Right Comments LBS: 60, 60, 60 kgs: 28, 28, 28 ...................... PT-OP-Q Treatments Start: 05/16/21 16:28 Freq: Status: Active Protocol: Document 09/08/21 13:03 LRN (Rec: 09/08/21 14:29 LR [id number]) Therapeutic Exercises Sitting Exercises Finger Ext Sitting Exercise Name Active finger extension Side bilateral Reps/Minutes 4' DIP/PIP jts Sitting Exercise Name Active & Passive DIP/PIP jts - flex/ext Side bilateral Reps/Minutes 10' Comments Stiff at khadar index finger PIP, DIP jts and L hand 5th digit. Manual Therapy Treatment Joint Mobilizations L hand Joint PIP & DIP jts f/b Passive flex Direction AP/PA Body Position Sitting Reps/Duration 10' R hand Joint PIP & DIP jts f/b Passive flex Direction AP/PA Body Position Sitting Reps/Duration 10' PT-OP-R Modalities Start: 05/16/21 16:28 Freq: Status: Active Protocol: Document 09/08/21 13:03 LRN (Rec: 09/08/21 14:29 LRN [id number]) Paraffin Bath Treatment Right Hand Treatment Technique Dip-immersion Number Wax Layers (layers) 8 Duration (minutes) 5 Patient Tolerance Good Left Hand Treatment Technique Dip-immersion Number Wax Layers (layers) 8 Duration (minutes) 5 Patient Tolerance Good PT-OP-T Assessment and Plan Start: 05/16/21 16:28 Freq: Status: Active Protocol: Document 09/08/21 13:03 LRN (Rec: 09/08/21 14:29 LRN [id number]) Physical Therapy Assessment Goals Three Impairment Khadar hand pain Impairment Khadar hand pain rated 5-6/10 non -stop burning pain all the time unless submerging hand in hot water (pain relief 1 hr). 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 (07/21/21: Still having nonstop burning pain due to not taking IBP anymore. Able to hold wheel through 1 song ~ 3' long). (09/08/21: Pt able to drive ~1' before pain onset in hand). STG Duration 06/29/21 (09/08/21: NOT MET GOAL. No change since 07/03/21) Senior Care Goal (LTG) Decrease khadar hand pain to to no greater than 3/5 at rest. (09/08/21: Pain ranges 3.5-8/10 ) LTG Duration 07/17/21 (09/08/21: NOT MET GOAL) Two Impairment Decreased khadar hand mobility Impairment PIP flex (deg's): L Hand: Digit : 2-80, 3-90, 4-90, 5-80 PIP flex (deg's): R hand: Digit: 2-94, 3-90, 4-96, 5-88 DIP ext (deg's): L hand: Digit : 2-42, 3-60, 4-58, 5-30 DIP ext (deg's): R hand: Digit : 2-48, 3-56, 4-56, 5-46 Short Term Goal (STG) Increase finger mobility with pt able to open small jar lids with mild difficulty. (09/08/21: Variable minor improvement in finger ROM, cont'd difficulty opening small jar lids) STG Duration 06/22/21 (09/08/21: NOT MET GOAL, no change since 07/21/21) Prison Guard Goal (LTG) Pt able to write more than a couple sentences before having to stop and shake her hands and without numbness and tingling. (07/21/21: Pt able to write 5- 6 sentences before having to stop before onset of pain, numbness, tingling). (09/08/21: [place] is worse) LTG Duration 07/17/21 (07/21/21: MET GOAL) One Impairment Lacks appropriate self care HEP Short Term Goal (STG) Pt will be educated in wrist strengthening ex's. (07/13/21: HEP: TBand wrist flex/ext/UD/RD and stretch to wrist flexors) STG Duration 06/02/21 (07/13/21: MET GOAL) Senior Care Goal (LTG) Pt will be independent in a self care HEP of finger ROM and strengthening ex's. (06/02/21: HEP I/S: School Guard making ex) (06/09/21: Gripping I/S with green T-Putty issued) (07/21/21: I/S pt to practice jar opening) LTG Duration 07/17/21 (09/08/21: GOAL MET for current status) Progress Towards Goals Progress Comments Variable minor improvement in finger PIP & DIP flex AROM. UE Quickdash score was 45 (40- 59% impaired), initially was 63 (60 to 79% Impaired (Score 60-79)). Assessment Summary Assessment Pt attends after ~6 weeks s/p cortisone injections in her bilateral index finger PIP joints. She demonstrates no improvement but same mobility at the index finger of the L hand PIP jt and no improvement in the R hand. In the index fingers active flexion is ( deg's): Left: PIP jt 84 previously to 84, DIP jt 58 previoiusly to 54 ; Right: PIP jt 92 previously to 84 , DIP jt 48 previously to 56. The pt has shown no improvement in her finger AROM after cortisone injection, taking a 6 wk break from physical therapy, and she indicates no improvement in the pain in her hands or improvement in function. Overall the pt did show some improvement in function (see UE Quickdash results) of gripping and being able to write during her course of PT. 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 The pt is agreeable ; therefore the pt will be discharged today to her HEP. Physical Therapy Plan Discharge Physical Therapy Discharge Reasons [place] in Progress Discharge Comments Pt is appropriate for physical therapy in the future if other treatment plans are unsuccessful. Thank you for your referral.
== END 2021-09-13 10:35 ==
LOC: PHYS 13:00
PROVIDERS: Family Provider Internal Medicine; PCP Internal Medicine; Referring Provider Physician Assistant; Visit Provider Physician Assistant
DX: M06.00 Rheumatoid arthritis without rheumatoid factor, unspecified site (principal); M21.949 Unspecified acquired deformity of hand, unspecified hand; M62.81 Muscle weakness (generalized)
CPT/HCPCS: 97018; 97110; 97140; 97162; 97535

== ENCOUNTER 2022-05-08 15:04 | Emergency (ER) | payer MEDICARE, OTHER, SELFPAY ==
[2022-05-08 15:16] VITALS: BP 175/71; PULSE 106; RESP 16; TEMP 38; O2SAT 93; BMI 25.2
--- NOTE | 2022-05-08 15:16 | DI.RAD.S_ITS ---
PROCEDURE: XR CHEST 1V INDICATIONS: suspected sepsis TECHNIQUE: One view of the chest was acquired. COMPARISON: [facility], CHEST 1 VIEW, 08/31/2016, 11:15. [facility], CHEST 1 VIEW, 11/17/2015, 14:41. FINDINGS: Surgical changes and devices: Surgical changes over the left chest wall and axilla. Lungs and pleura: Lungs are clear. No pleural effusions or pneumothorax. Mediastinum: Mediastinal contours appear normal. Heart size is normal. Bones and chest wall: No suspicious bony lesions. Overlying soft tissues appear unremarkable. IMPRESSION: No acute cardiopulmonary process. Dictated by: Henok Leyva M.D. on 05/08/2022 at 15:39 Approved by: Henok Leyva M.D. on 05/08/2022 at 15:40
[2022-05-08] MEDS: ACETAMINOPHEN 325 MG TABLET 975 MG PO (15:21)
[2022-05-08] MEDS: SODIUM CHLORIDE 0.9% 1,000 ML 1000 ML IV (15:21)
[2022-05-08 15:44] LABS: Add Manual Diff / Slide Review NO; Basophils Absolute Auto 100 /uL (0-100); Basophils Percent Auto 0.7 % (0-2); Eosinophils Absolute Auto 100 /uL (0-450); Eosinophils Percent Auto 1.5 % (2-4); Hematocrit 40.4 % (36-46); Hemoglobin 13.8 g/dL (12.0-16.0); Lymphocytes Absolute Auto 700 /uL (1100-4500); Lymphocytes Percent Auto 8.8 % (25-40); Mean Corpuscular HGB Conc 34.2 % (30-36); Mean Corpuscular Hemoglobin 32.8 PG (26-34); Mean Corpuscular Volume 95.9 fL (80-100); Monocytes Absolute Auto 1100 /uL (0-900); Monocytes Percent Auto 14.5 % (3-14); Neutrophils Absolute Auto 5800 /uL (1500-7000); Neutrophils Percent Auto 74.5 % (50-75); Platelet Count 205 X10^3/uL (150-400); Red Blood Cell Count 4.22 X10^6/uL (4.0-5.2); Red Cell Distribution Width 14.1 % (11.6-14.8); White Blood Cell Count 7.8 X10^3/uL (4.5-11.0)
[2022-05-08] MEDS: ONDANSETRON 4 MG/2 ML INJ IV (15:51)
[2022-05-08] MEDS: KETOROLAC 30 MG/ML VIAL 15 MG IV (15:51)
[2022-05-08 15:52] LABS: INR 1.1 (0.9-1.3); Prothrombin Time 12.4 SECONDS (10.1-12.7)
[2022-05-08 15:54] VITALS: PULSE 103; O2SAT 93
[2022-05-08 15:54] LABS: PTT Partial Thromboplastin Tim 31 SECONDS (26-36)
[2022-05-08 15:55] VITALS: BP 142/88; PULSE 102; O2SAT 94
[2022-05-08 16:00] VITALS: PULSE 103; O2SAT 94
[2022-05-08 16:00] LABS: Alanine Aminotransferase 31 IU/L (<35); Albumin 3.9 g/dL (3.5-5.0); Albumin Globulin Ratio 1.4 (1.0-2.8); Alkaline Phosphatase 111 U/L (38-126); Aspartate Aminotransferase 30 IU/L (14-36); BUN Creatinine Ratio 20.2 (6-22); Bilirubin Total 0.6 mg/dL (0.2-1.3); Blood Urea Nitrogen 18 mg/dL (7-17); Calcium 8.3 mg/dL (8.4-10.2); Carbon Dioxide 28 mmol/L (22-32); Chloride 103 mmol/L (98-107); Estimated Glomerular Filt Rate > 60 mL/min (>60); Globulin 2.7 g/dL (1.7-4.1); Glucose 97 mg/dL (80-110); HEMOLYSIS 27 (0-50); Lipase 71 U/L (23-300); Potassium 3.2 mmol/L (3.4-5.1); Sodium 137 mmol/L (137-145); Total Protein 6.6 g/dL (6.3-8.2)
[2022-05-08 16:17] LABS: Procalcitonin 0.09 ng/mL (<0.5)
[2022-05-08 16:20] LABS: Adenovirus Detected (Not Detect); Coronavirus 229E Not Detected (Not Detect); Coronavirus HKU1 Not Detected (Not Detect); Coronavirus NL 63 Not Detected (Not Detect); Coronavirus OC43 Not Detected (Not Detect)
[2022-05-08 16:21] LABS: B. parapertussis Not Detected (Not Detecte); Bordetella pertussis Not Detected (Not Detecte); Chlamydophila pneumoniae Not Detected (Not Detect); Human Metapneumovirus Not Detected (Not Detect); Human Rhinovirus/Enterovirus Not Detected (Not Detect); Influenza A Not Detected (Not Detect); Influenza B Not Detected (Not Detect); Mycoplasma pneumoniae Not Detected (Not Detect); Parainfluenza Virus 1 Not Detected (Not Detect); Parainfluenza Virus 2 Not Detected (Not Detect); Parainfluenza Virus 3 Not Detected (Not Detect); Parainfluenza Virus 4 Not Detected (Not Detect); Respiratory Syncytial Virus Not Detected (Not Detect); SARS- CoV-2 Detected (Not Detecte)
[2022-05-08 16:30] VITALS: PULSE 101; O2SAT 94
--- NOTE | 2022-05-08 16:51 | ED.FEVER ---
HPI - Fever <Hieu Murphy PA-C - Last Filed: 05/08/22 16:57> General Chief Complaint: Fever Stated Complaint: Fever, N/V Time Seen by Provider: 05/08/22 15:15 History of Present Illness HPI Narrative: 71-year-old female with past medical history pancreatitis presents to the ED with 3 days of fever, chills, cough. Patient also endorses mild rhinorrhea, sore throat. Patient endorses nausea and vomiting, states that it is hard to keep anything down including medications. Patient has had some recent sick contacts at home. Patient denies chest pain, shortness of breath, abdominal pain, flank pain, dysuria, lightheadedness, dizziness, syncope. Related Data Home Medications Medication Instructions Recorded Confirmed diltiazem HCl 240 mg 240 mg PO DAILY 05/09/22 05/09/22 capsule,extended release 24 hr losartan 50 mg tablet 50 mg PO QPM 05/09/22 05/09/22 Allergies Allergy/AdvReac Type Severity Reaction Status Date / Time cocoa Allergy Severe bad hives Unverified 06/12/17 12:55 and respiratory distress sumatriptan Allergy Severe severe Unverified 06/12/17 12:55 palpations, hives coconut [COCONUT] Allergy Unknown HIVES AND Unverified 06/12/17 12:55 RESP DISTRESS oxycodone [OXYCODONE] AdvReac Intermediate N/V Unverified 06/12/17 12:55 PALM OIL Allergy Severe RESPIRATORY Uncoded 06/12/17 12:55 DISTRESS Review of Systems <Hieu Murphy PA-C - Last Filed: 05/08/22 16:57> Review of Systems ROS Unobtainable: All systems reviewed & are unremarkable except as noted in HPI and below Constitutional Constitutional: Reports chills, Denies fatigue, Reports fever(s), Denies frequent falls, Denies lethargy and Denies weakness Eyes Eyes: Denies change in vision, Denies eye discharge, Denies irritation and Denies loss of vision ENT Ears, Nose, Mouth, and Throat: Denies change in voice, Denies dizziness, Reports nasal congestion, Reports nasal discharge, Denies neck pain, Reports sore throat and Denies throat swelling Cardiovascular Cardiovascular: Denies chest pain, Denies irregular heart rhythm, Denies lightheadedness, Denies palpitations, Denies dyspnea, Denies dyspnea on exertion and Denies orthopnea Respiratory Respiratory: Reports cough, Denies dyspnea, Denies dyspnea on exertion and Denies wheezing Gastrointestinal Gastrointestinal: Denies abdominal pain, Denies change in bowel habits, Denies diarrhea, Reports nausea and Reports vomiting Genitourinary Genitourinary: Denies hematuria, Denies flank pain, Denies urinary incontinence and Denies urinary urgency Musculoskeletal Musculoskeletal: Denies back pain, Denies muscle weakness, Denies neck pain, Denies numbness and Denies tingling Integumentary/Breasts Skin/Breast: Denies pruritus, Denies erythema, Denies rash and Denies wounds Neurologic Neurologic: Denies behavioral changes, Denies confusion, Denies dizziness, Denies frequent falls, Denies loss of vision, Denies numbness, Denies tingling and Denies weakness Psychiatric Psychiatric: Denies anxiety, Denies behavioral changes, Denies confusion, Denies depression, Denies homicidal ideation and Denies suicidal ideation Endocrine Endocrine: Denies fatigue, Denies flushing and Denies palpitations Hematologic/Lymphatic Hematologic/Lymphatic: Denies easy bruising Allergic/Immunologic Allergic/Immunologic: Denies urticaria, Denies throat swelling and Denies wheezing Patient History <Hieu Murphy PA-C - Last Filed: 05/08/22 16:57> Social History Smoking Status: Never smoker alcohol intake frequency: 0-2 drinks per day Alcohol type: wine and hard liquor Substance Use Type: does not use Exam <Hieu Murphy PA-C - Last Filed: 05/08/22 16:57> Narrative Exam Narrative: Const General:?cooperative, healthy appearing and comfortable [facility] Head:?normal to inspection Ears:?hearing grossly normal bilaterally Nose:?external nose normal Face and sinus:?normal facial exam and sinuses nontender Mouth:?oral mucosae normal Throat:?posterior oropharynx normal Eyes General:?appearance normal, both eyes and all related structures Neck Neck:?normal visual inspection and no lymphadenopathy noted Resp Effort & Inspection:?normal respiratory effort Auscultation:?clear to auscultation bilaterally Cardio Rate:?regular rate Rhythm:?regular rhythm GI Abdomen is soft, non distended, nontender to palpation. There is no CVA tenderness. Neuro General:?patient alert, patient awake and patient oriented x3 Initial Vital Signs Initial Vital Signs: Vital Signs Temperature 100.4 F H 05/08/22 15:16 Pulse Rate 106 H 05/08/22 15:16 Respiratory Rate 16 05/08/22 15:16 Blood Pressure 175/71 H 05/08/22 15:16 Pulse Oximetry 93 05/08/22 15:16 Oxygen Delivery Method Room Air 05/08/22 15:16 <Nikolay Ortiz MD - Last Filed: 05/15/22 08:26> Initial Vital Signs Initial Vital Signs: Vital Signs Temperature 100.4 F H 05/08/22 15:16 Pulse Rate 106 H 05/08/22 15:16 Respiratory Rate 16 05/08/22 15:16 Blood Pressure 175/71 H 05/08/22 15:16 Pulse Oximetry 93 05/08/22 15:16 Oxygen Delivery Method Room Air 05/08/22 15:16 Course <Hieu Murphy PA-C - Last Filed: 05/08/22 16:57> Orders Ordered: Discontinued Medications Acetaminophen (Acetaminophen 325 Mg Tablet) 975 mg PO NOW ONE Stop: 05/08/22 15:17 Last Admin: 05/08/22 15:21 Dose: 975 mg Documented By: GLORIA Sodium Chloride (Normal Saline 0.9%) 1,000 mls @ 1,000 mls/hr IV BOLUS ONE Stop: 05/08/22 16:15 Last Admin: 05/08/22 15:21 Dose: 1,000 mls/hr Documented By: GLORIA Sodium Chloride (Normal Saline 0.9%) 1,000 mls @ 1,000 mls/hr IV BOLUS ONE Stop: 05/08/22 16:37 Last Admin: 05/08/22 16:07 Dose: Not Given Documented By: GLORIA(2) Ketorolac Tromethamine (Ketorolac 30 Mg/Ml Vial) 15 mg IV NOW ONE Stop: 05/08/22 15:39 Last Admin: 05/08/22 15:51 Dose: 15 mg Documented By: GLORIA(2) Ondansetron HCl (Ondansetron 4 Mg/2 Ml Inj) 4 mg IV NOW PRN PRN Reason: Nausea And Vomiting Ondansetron HCl (Ondansetron 4 Mg/2 Ml Inj) 4 mg IV NOW ONE Stop: 05/08/22 15:39 Last Admin: 05/08/22 15:51 Dose: 4 mg Documented By: GLORIA(2) Vital Signs Vital signs: Vital Signs - 8 hr 05/08/22 15:16 Temperature 100.4 F H Pulse Rate 106 H Respiratory Rate 16 Blood Pressure 175/71 H Pulse Oximetry 93 Oxygen Delivery Method Room Air <Nikolay Ortiz MD - Last Filed: 05/15/22 08:26> Orders Ordered: Discontinued Medications Acetaminophen (Acetaminophen 325 Mg Tablet) 975 mg PO NOW ONE Stop: 05/08/22 15:17 Last Admin: 05/08/22 15:21 Dose: 975 mg Documented By: GLORIA Sodium Chloride (Normal Saline 0.9%) 1,000 mls @ 1,000 mls/hr IV BOLUS ONE Stop: 05/08/22 16:15 Last Admin: 05/08/22 15:21 Dose: 1,000 mls/hr Documented By: GLORIA Sodium Chloride (Normal Saline 0.9%) 1,000 mls @ 1,000 mls/hr IV BOLUS ONE Stop: 05/08/22 16:37 Last Admin: 05/08/22 16:07 Dose: Not Given Documented By: GLORIA(2) Ketorolac Tromethamine (Ketorolac 30 Mg/Ml Vial) 15 mg IV NOW ONE Stop: 05/08/22 15:39 Last Admin: 05/08/22 15:51 Dose: 15 mg Documented By: GLORIA(2) Ondansetron HCl (Ondansetron 4 Mg/2 Ml Inj) 4 mg IV NOW PRN PRN Reason: Nausea And Vomiting Ondansetron HCl (Ondansetron 4 Mg/2 Ml Inj) 4 mg IV NOW ONE Stop: 05/08/22 15:39 Last Admin: 05/08/22 15:51 Dose: 4 mg Documented By: GLORIA(2) Vital Signs Vital signs: Vital Signs - 8 hr 05/08/22 15:16 Temperature 100.4 F H Pulse Rate 106 H Respiratory Rate 16 Blood Pressure 175/71 H Pulse Oximetry 93 Oxygen Delivery Method Room Air MDM - Fever <Hieu Murphy PA-C - Last Filed: 05/08/22 16:57> Lab Data 05/08/22 15:27 05/08/22 15:27 Labs: Lab Results 03/09/2305/08/22 05/08/22 Range/Units 15:22 15:27 15:27 WBC 7.8 (4.5-11.0) X10^3/uL RBC 4.22 (4.0-5.2) X10^6/uL Hgb 13.8 (12.0-16.0) g/dL Hct 40.4 (36-46) % MCV 95.9 (80-100) fL MCH 32.8 (26-34) PG MCHC 34.2 (30-36) % RDW 14.1 (11.6-14.8) % Plt Count 205 (150-400) X10^3/uL Neut % (Auto) 74.5 (50-75) % Lymph % (Auto) 8.8 L (25-40) % [place] % (Auto) 14.5 H (3-14) % Eos % (Auto) 1.5 L (2-4) % Baso % (Auto) 0.7 (0-2) % Neut # (Auto) 5800 (8636-6223) /uL Lymph # (Auto) 700 L (6113-7312) /uL [place] # (Auto) 1100 H (0-900) /uL Eos # (Auto) 100 (0-450) /uL Baso # (Auto) 100 (0-100) /uL PT 12.4 (10.1-12.7) SECONDS INR 1.1 (0.9-1.3) APTT 31 (26-36) SECONDS Sodium (137-145) mmol/L Potassium (3.4-5.1) mmol/L Chloride (98-107) mmol/L Carbon Dioxide (22-32) mmol/L BUN (7-17) mg/dL Creatinine (0.52-1.04) mg/dL Estimated GFR (>60) mL/min BUN/Creatinine Ratio (6-22) Glucose (80-110) mg/dL Lactate (0.7-2.1) mmol/L Calcium (8.4-10.2) mg/dL Total Bilirubin (0.2-1.3) mg/dL AST (14-36) IU/L ALT (<35) IU/L Alkaline Phosphatase (38-126) U/L Total Protein (6.3-8.2) g/dL Albumin (3.5-5.0) g/dL Globulin (1.7-4.1) g/dL Albumin/Globulin Ratio (1.0-2.8) Lipase (23-300) U/L Procalcitonin (<0.5) ng/mL Chlamy pneumoniae PCR Not detected (Not Detect) Adenovirus (PCR) Detected H (Not Detect) B. pertussis DNA (PCR) Not detected (Not Detecte) B.parapertussis DNA PCR Not detected (Not Detecte) Coronavirus OC43 (PCR) Not detected (Not Detect) Coronavirus HKU1 (PCR) Not detected (Not Detect) Coronavirus 229E (PCR) Not detected (Not Detect) SARS-CoV-2 (PCR) Detected H (Not Detecte) Coronavirus NL63 (PCR) Not detected (Not Detect) Human Metapneumovir PCR Not detected (Not Detect) Influenza Type A (PCR) Not detected (Not Detect) Influenza Type B (PCR) Not detected (Not Detect) M. pneumoniae (PCR) Not detected (Not Detect) Parainfluenza 1 (PCR) Not detected (Not Detect) Parainfluenza 2 (PCR) Not detected (Not Detect) Parainfluenza 3 (PCR) Not detected (Not Detect) Parainfluenza 4 (PCR) Not detected (Not Detect) RSV (PCR) Not detected (Not Detect) Entero/Rhino (PCR) Not detected (Not Detect) 05/08/22 05/08/22 Range/Units 15:27 15:27 WBC (4.5-11.0) X10^3/uL RBC (4.0-5.2) X10^6/uL Hgb (12.0-16.0) g/dL Hct (36-46) % MCV (80-100) fL MCH (26-34) PG MCHC (30-36) % RDW (11.6-14.8) % Plt Count (150-400) X10^3/uL Neut % (Auto) (50-75) % Lymph % (Auto) (25-40) % [place] % (Auto) (3-14) % Eos % (Auto) (2-4) % Baso % (Auto) (0-2) % Neut # (Auto) (7843-5531) /uL Lymph # (Auto) (2998-0086) /uL [place] # (Auto) (0-900) /uL Eos # (Auto) (0-450) /uL Baso # (Auto) (0-100) /uL PT (10.1-12.7) SECONDS INR (0.9-1.3) APTT (26-36) SECONDS Sodium 137 (137-145) mmol/L Potassium 3.2 L (3.4-5.1) mmol/L Chloride 103 (98-107) mmol/L Carbon Dioxide 28 (22-32) mmol/L BUN 18 H (7-17) mg/dL Creatinine 0.89 (0.52-1.04) mg/dL Estimated GFR > 60 (>60) mL/min BUN/Creatinine Ratio 20.2 (6-22) Glucose 97 (80-110) mg/dL Lactate 1.0 (0.7-2.1) mmol/L Calcium 8.3 L (8.4-10.2) mg/dL Total Bilirubin 0.6 (0.2-1.3) mg/dL AST 30 (14-36) IU/L ALT 31 (<35) IU/L Alkaline Phosphatase 111 (38-126) U/L Total Protein 6.6 (6.3-8.2) g/dL Albumin 3.9 (3.5-5.0) g/dL Globulin 2.7 (1.7-4.1) g/dL Albumin/Globulin Ratio 1.4 (1.0-2.8) Lipase 71 (23-300) U/L Procalcitonin 0.09 (<0.5) ng/mL Chlamy pneumoniae PCR (Not Detect) Adenovirus (PCR) (Not Detect) B. pertussis DNA (PCR) (Not Detecte) B.parapertussis DNA PCR (Not Detecte) Coronavirus OC43 (PCR) (Not Detect) Coronavirus HKU1 (PCR) (Not Detect) Coronavirus 229E (PCR) (Not Detect) SARS-CoV-2 (PCR) (Not Detecte) Coronavirus NL63 (PCR) (Not Detect) Human Metapneumovir PCR (Not Detect) Influenza Type A (PCR) (Not Detect) Influenza Type B (PCR) (Not Detect) M. pneumoniae (PCR) (Not Detect) Parainfluenza 1 (PCR) (Not Detect) Parainfluenza 2 (PCR) (Not Detect) Parainfluenza 3 (PCR) (Not Detect) Parainfluenza 4 (PCR) (Not Detect) RSV (PCR) (Not Detect) Entero/Rhino (PCR) (Not Detect) MDM Narrative Medical decision making narrative: 71-year-old female with past medical history pancreatitis presents to the ED with 3 days of fever, chills, cough. Concern for viral URI versus sepsis versus other. Will obtain labs, respiratory panel. Will treat with Tylenol, IV fluids, Zofran. Will reassess. Respiratory panel is positive for adenovirus, COVID-19. Patient's symptoms improved with medications and fluids. ED return precautions were discussed with patient. Patient verbalized understanding. Medical records reviewed: Yes <Nikolay Ortiz MD - Last Filed: 05/15/22 08:26> Lab Data Labs: Lab Results 05/08/22 05/08/22 05/08/22 Range/Units 15:22 15:27 15:27 WBC 7.8 (4.5-11.0) X10^3/uL RBC 4.22 (4.0-5.2) X10^6/uL Hgb 13.8 (12.0-16.0) g/dL Hct 40.4 (36-46) % MCV 95.9 (80-100) fL MCH 32.8 (26-34) PG MCHC 34.2 (30-36) % RDW 14.1 (11.6-14.8) % Plt Count 205 (150-400) X10^3/uL Neut % (Auto) 74.5 (50-75) % Lymph % (Auto) 8.8 L (25-40) % [place] % (Auto) 14.5 H (3-14) % Eos % (Auto) 1.5 L (2-4) % Baso % (Auto) 0.7 (0-2) % Neut # (Auto) 5800 (5095-7207) /uL Lymph # (Auto) 700 L (2743-8327) /uL [place] # (Auto) 1100 H (0-900) /uL Eos # (Auto) 100 (0-450) /uL Baso # (Auto) 100 (0-100) /uL PT 12.4 (10.1-12.7) SECONDS INR 1.1 (0.9-1.3) APTT 31 (26-36) SECONDS Sodium (137-145) mmol/L Potassium (3.4-5.1) mmol/L Chloride (98-107) mmol/L Carbon Dioxide (22-32) mmol/L BUN (7-17) mg/dL Creatinine (0.52-1.04) mg/dL Estimated GFR (>60) mL/min BUN/Creatinine Ratio (6-22) Glucose (80-110) mg/dL Lactate (0.7-2.1) mmol/L Calcium (8.4-10.2) mg/dL Total Bilirubin (0.2-1.3) mg/dL AST (14-36) IU/L ALT (<35) IU/L Alkaline Phosphatase (38-126) U/L Total Protein (6.3-8.2) g/dL Albumin (3.5-5.0) g/dL Globulin (1.7-4.1) g/dL Albumin/Globulin Ratio (1.0-2.8) Lipase (23-300) U/L Procalcitonin (<0.5) ng/mL Chlamy pneumoniae PCR Not detected (Not Detect) Adenovirus (PCR) Detected H (Not Detect) B. pertussis DNA (PCR) Not detected (Not Detecte) B.parapertussis DNA PCR Not detected (Not Detecte) Coronavirus OC43 (PCR) Not detected (Not Detect) Coronavirus HKU1 (PCR) Not detected (Not Detect) Coronavirus 229E (PCR) Not detected (Not Detect) SARS-CoV-2 (PCR) Detected H (Not Detecte) Coronavirus NL63 (PCR) Not detected (Not Detect) Human Metapneumovir PCR Not detected (Not Detect) Influenza Type A (PCR) Not detected (Not Detect) Influenza Type B (PCR) Not detected (Not Detect) M. pneumoniae (PCR) Not detected (Not Detect) Parainfluenza 1 (PCR) Not detected (Not Detect) Parainfluenza 2 (PCR) Not detected (Not Detect) Parainfluenza 3 (PCR) Not detected (Not Detect) Parainfluenza 4 (PCR) Not detected (Not Detect) RSV (PCR) Not detected (Not Detect) Entero/Rhino (PCR) Not detected (Not Detect) 05/08/22 05/08/22 Range/Units 15:27 15:27 WBC (4.5-11.0) X10^3/uL RBC (4.0-5.2) X10^6/uL Hgb (12.0-16.0) g/dL Hct (36-46) % MCV (80-100) fL MCH (26-34) PG MCHC (30-36) % RDW (11.6-14.8) % Plt Count (150-400) X10^3/uL Neut % (Auto) (50-75) % Lymph % (Auto) (25-40) % [place] % (Auto) (3-14) % Eos % (Auto) (2-4) % Baso % (Auto) (0-2) % Neut # (Auto) (5110-2363) /uL Lymph # (Auto) (6012-3156) /uL [place] # (Auto) (0-900) /uL Eos # (Auto) (0-450) /uL Baso # (Auto) (0-100) /uL PT (10.1-12.7) SECONDS INR (0.9-1.3) APTT (26-36) SECONDS Sodium 137 (137-145) mmol/L Potassium 3.2 L (3.4-5.1) mmol/L Chloride 103 (98-107) mmol/L Carbon Dioxide 28 (22-32) mmol/L BUN 18 H (7-17) mg/dL Creatinine 0.89 (0.52-1.04) mg/dL Estimated GFR > 60 (>60) mL/min BUN/Creatinine Ratio 20.2 (6-22) Glucose 97 (80-110) mg/dL Lactate 1.0 (0.7-2.1) mmol/L Calcium 8.3 L (8.4-10.2) mg/dL Total Bilirubin 0.6 (0.2-1.3) mg/dL AST 30 (14-36) IU/L ALT 31 (<35) IU/L Alkaline Phosphatase 111 (38-126) U/L Total Protein 6.6 (6.3-8.2) g/dL Albumin 3.9 (3.5-5.0) g/dL Globulin 2.7 (1.7-4.1) g/dL Albumin/Globulin Ratio 1.4 (1.0-2.8) Lipase 71 (23-300) U/L Procalcitonin 0.09 (<0.5) ng/mL Chlamy pneumoniae PCR (Not Detect) Adenovirus (PCR) (Not Detect) B. pertussis DNA (PCR) (Not Detecte) B.parapertussis DNA PCR (Not Detecte) Coronavirus OC43 (PCR) (Not Detect) Coronavirus HKU1 (PCR) (Not Detect) Coronavirus 229E (PCR) (Not Detect) SARS-CoV-2 (PCR) (Not Detecte) Coronavirus NL63 (PCR) (Not Detect) Human Metapneumovir PCR (Not Detect) Influenza Type A (PCR) (Not Detect) Influenza Type B (PCR) (Not Detect) M. pneumoniae (PCR) (Not Detect) Parainfluenza 1 (PCR) (Not Detect) Parainfluenza 2 (PCR) (Not Detect) Parainfluenza 3 (PCR) (Not Detect) Parainfluenza 4 (PCR) (Not Detect) RSV (PCR) (Not Detect) Entero/Rhino (PCR) (Not Detect) Discharge Plan Departure Patient Disposition: Home Clinical Impression: COVID-19 Instructions: COVID-19 Activity Restrictions/Additional Instructions: You were evaluated in the ED today for a fever, cough. You tested positive for COVID-19. You were also given some Tylenol, Zofran, IV fluid for your symptoms. You may continue to take Zofran at home for the nausea. You may also take Tylenol and hydrate well. Return to the ED if you experience any chest pain, shortness of breath. Prescriptions: No Action diltiazem HCl 240 mg capsule,extended release 24hr 240 mg PO DAILY Patient Comments: take 1 capsule by mouth once daily losartan 50 mg Tablet 50 mg PO QPM Referrals: Mica Pace MD [Primary Care Provider] - Stand Alone Forms: Patient Portal/API <Nikolay Ortiz MD - Last Filed: 05/15/22 08:26> Cosign ED Attending Alanna[place] Attestation: I was immediately available in the department for consultation. ?This documentation has been reviewed and I agree with assessment and plan. Supervised by Nikolay Ortiz MD
== END 2022-05-08 16:57 | disposition home or self-care (01) ==
PROVIDERS: Emergency Medicine; Emergency Provider Student in an Organized Health Care Education/Training Program; Family Provider Internal Medicine; PCP Internal Medicine
DX: U07.1 COVID-19 (principal); R11.2 Nausea with vomiting, unspecified
CPT/HCPCS: 36415; 71045; 80053; 83605; 83690; 84145; 85025; 85610; 85730; 87040; 87633; 96374; 96375; 99284; J1885; J2405

== ENCOUNTER 2022-05-09 08:34 | Emergency (ER) | payer MEDICARE, OTHER, SELFPAY ==
[2022-05-09] VITALS (9 sets, daily range): BP systolic 153–230; BP diastolic 82–135; PULSE 79–98; RESP 18–20; TEMP 38; O2SAT 92–97; BMI 25.2
--- NOTE | 2022-05-09 09:17 | ED_ITS ---
HPI - Chest Pain General Chief Complaint: Chest Pain Stated Complaint: here T-1 covid+/SOB/ chest pain Time Seen by Provider: 05/09/22 09:15 Source: patient Mode of arrival: Ambulatory Limitations: no limitations History of Present Illness HPI narrative: This is a 71-year-old female with history of SVT, hypertension, rheumatoid arthritis and dyslipidemia who presents with persistent nausea and vomiting despite Zofran. Patient has positive COVID diagnosis she was seen here yesterday, had labs, chest x-ray and was discharged with Zofran. She is had fevers for the last 3 or 4 days, she developed some chest pain left substernally last night and into today. She states occasional shortness of breath, she is armstrong d nausea and vomiting 3-4 times daily for the last 2-3 days. She states Zofran has not been helpful, she is kept a few sips of fluid down. She states she is been constipated she has not had a bowel movement for 4 days. Positive for flatus. She is has chronic frequency but no urgency or dysuria she is noted her urine output has been decreased and darker. No new swelling in extremities. Patient did take some Tylenol this morning. She does complain of headache and states she has had history of migraines. She states she is allergic to Imitrex. No tobacco, occasional alcohol, no illicit. Her primary care is at [facility]. She is accompanied by a good friend who is currently visiting her. Related Data Home Medications Medication Instructions Recorded Confirmed diltiazem HCl 240 mg 240 mg PO DAILY 05/09/22 05/09/22 capsule,extended release 24 hr losartan 50 mg tablet 50 mg PO QPM 05/09/22 05/09/22 Allergies Allergy/AdvReac Type Severity Reaction Status Date / Time cocoa Allergy Severe bad hives Unverified 06/12/17 12:55 and respiratory distress sumatriptan Allergy Severe severe Unverified 06/12/17 12:55 palpations, hives coconut [COCONUT] Allergy Unknown HIVES AND Unverified 06/12/17 12:55 RESP DISTRESS oxycodone [OXYCODONE] AdvReac Intermediate N/V Unverified 06/12/17 12:55 PALM OIL Allergy Severe RESPIRATORY Uncoded 06/12/17 12:55 DISTRESS Review of Systems Review of Systems ROS Unobtainable: All systems reviewed & are unremarkable except as noted in HPI and below Patient History Social History Smoking Status: Never smoker Smoking Status: Never smoker alcohol intake frequency: 0-2 drinks per day Alcohol type: wine and hard liquor Substance Use Type: does not use Exam Narrative Exam Narrative: GENERAL: Alert and oriented x three, female in mild distress. HEENT: Head normocephalic, atraumatic, EOMI, pupils reactive, face symmetric, moist mucous membranes NECK: Supple, full range of motion CARDIOVASCULAR: Regular rate and rhythm without murmurs, rubs or gallops. No JVD. No swelling bilateral lower extremities. RESPIRATORY: Breath sounds equal bilaterally, no wheezes rales or rhonchi. ABDOMEN: Soft, mild epigastric tenderness. Normoactive bowel sounds all 4 quadrants. No guarding or rebound, rigidity, no mass, nondistended. : No CVA tenderness EXTREMITIES: Normal range of motion, no clubbing or edema. Neurovascularly intact NEUROLOGICAL: Cranial nerves II through XII grossly intact. Moving all extremities SKIN: Warm, dry, no petechiae, no rashes or lesions. Initial Vital Signs Initial Vital Signs: Vital Signs Temperature 100.4 F H 05/09/22 08:35 Pulse Rate 94 H 05/09/22 08:35 Respiratory Rate 20 05/09/22 08:35 Blood Pressure 190/95 H 05/09/22 08:35 Pulse Oximetry 97 05/09/22 08:35 Oxygen Delivery Method Room Air 05/09/22 08:35 Course Orders Ordered: ED Orders 05/09/22 10:35 CT angio chest PE protocol Stat Discontinued Medications Diltiazem HCl (Diltiazem Cd 240 Mg Cap) 240 mg PO NOW ONE Stop: 05/09/22 10:38 Last Admin: 05/09/22 10:55 Dose: 240 mg Documented By: GLORIA Diphenhydramine HCl (Diphenhydramine 50 Mg/Ml Vial) 25 mg IV Q6HR PRN PRN Reason: nausea/vomiting Last Admin: 05/09/22 10:55 Dose: 25 mg Documented By: GLORIA Sodium Chloride (Normal Saline 0.9%) 1,000 mls @ 1,000 mls/hr IV BOLUS ONE Stop: 05/09/22 10:44 Last Infusion: 05/09/22 11:49 Dose: 0 mls/hr Documented By: GLORIA(2) Admin: 05/09/22 10:40 Dose: 1,000 mls/hr Documented By: GLORIA Ketorolac Tromethamine (Ketorolac 30 Mg/Ml Vial) 15 mg IM NOW ONE Stop: 05/09/22 09:26 Last Admin: 05/09/22 09:31 Dose: 15 mg Documented By: GLORIA(3) Losartan Potassium (Losartan 50 Mg Tablet) 50 mg PO NOW ONE Stop: 05/09/22 10:37 Last Admin: 05/09/22 10:55 Dose: 50 mg Documented By: GLORIA Ondansetron HCl (Ondansetron 4 Mg/2 Ml Inj) 4 mg IV NOW ONE Stop: 05/09/22 09:17 Last Admin: 05/09/22 09:23 Dose: 4 mg Documented By: GLORIA(2) Vital Signs Vital signs: Vital Signs - 8 hr 05/09/22 13:42 Pulse Rate 79 Respiratory Rate 18 Blood Pressure 153/82 H Pulse Oximetry 96 Oxygen Delivery Method Room Air MDM - Chest Pain Lab Data 05/09/22 09:50 05/09/22 09:50 Labs: Lab Results 05/09/22 05/09/22 05/09/22 Range/Units 09:15 09:50 09:50 WBC 8.6 (4.5-11.0) X10^3/uL RBC 4.40 (4.0-5.2) X10^6/uL Hgb 14.3 (12.0-16.0) g/dL Hct 42.0 (36-46) % MCV 95.4 (80-100) fL MCH 32.5 (26-34) PG MCHC 34.0 (30-36) % RDW 14.0 (11.6-14.8) % Plt Count 217 (150-400) X10^3/uL Neut % (Auto) 79.5 H (50-75) % Lymph % (Auto) 6.4 L (25-40) % Haskell % (Auto) 12.9 (3-14) % Eos % (Auto) 0.5 L (2-4) % Baso % (Auto) 0.7 (0-2) % Neut # (Auto) 6900 (6644-7991) /uL Lymph # (Auto) 600 L (7667-1891) /uL Haskell # (Auto) 1100 H (0-900) /uL Eos # (Auto) 0 (0-450) /uL Baso # (Auto) 100 (0-100) /uL PT 13.2 H (10.1-12.7) SECONDS INR 1.2 (0.9-1.3) APTT 32 (26-36) SECONDS D-Dimer 1109 H (<500) ng/ml Sodium (137-145) mmol/L Potassium (3.4-5.1) mmol/L Chloride (98-107) mmol/L Carbon Dioxide (22-32) mmol/L BUN (7-17) mg/dL Creatinine (0.52-1.04) mg/dL Estimated GFR (>60) mL/min BUN/Creatinine Ratio (6-22) Glucose (80-110) mg/dL Lactate (0.7-2.1) mmol/L Calcium (8.4-10.2) mg/dL Total Bilirubin (0.2-1.3) mg/dL AST (14-36) IU/L ALT (<35) IU/L Alkaline Phosphatase (38-126) U/L Total Creatine Kinase (30-135) U/L CK-MB (CK-2) CK-MB (CK-2) Rel Index Troponin I (0.01-0.034) ng/mL NT-Pro-B Natriuret Pep (<125) pg/mL Total Protein (6.3-8.2) g/dL Albumin (3.5-5.0) g/dL Globulin (1.7-4.1) g/dL Albumin/Globulin Ratio (1.0-2.8) Lipase (23-300) U/L Urine RBC None seen (0-5/HPF) Urine WBC None seen (0-5/HPF) Urine Bacteria None seen (None) Ur Culture Indicated? Cult not indicated Micro UA Comment Microscopic normal 05/09/22 05/09/22 Range/Units 09:50 09:51 WBC (4.5-11.0) X10^3/uL RBC (4.0-5.2) X10^6/uL Hgb (12.0-16.0) g/dL Hct (36-46) % MCV (80-100) fL MCH (26-34) PG MCHC (30-36) % RDW (11.6-14.8) % Plt Count (150-400) X10^3/uL Neut % (Auto) (50-75) % Lymph % (Auto) (25-40) % Haskell % (Auto) (3-14) % Eos % (Auto) (2-4) % Baso % (Auto) (0-2) % Neut # (Auto) (5423-5808) /uL Lymph # (Auto) (9210-6657) /uL Haskell # (Auto) (0-900) /uL Eos # (Auto) (0-450) /uL Baso # (Auto) (0-100) /uL PT (10.1-12.7) SECONDS INR (0.9-1.3) APTT (26-36) SECONDS D-Dimer (<500) ng/ml Sodium 134 L (137-145) mmol/L Potassium 3.2 L (3.4-5.1) mmol/L Chloride 98 (98-107) mmol/L Carbon Dioxide 29 (22-32) mmol/L BUN 18 H (7-17) mg/dL Creatinine 0.99 (0.52-1.04) mg/dL Estimated GFR > 60 (>60) mL/min BUN/Creatinine Ratio 18.2 (6-22) Glucose 108 (80-110) mg/dL Lactate 0.9 (0.7-2.1) mmol/L Calcium 8.7 (8.4-10.2) mg/dL Total Bilirubin 0.5 (0.2-1.3) mg/dL AST 36 (14-36) IU/L ALT 34 (<35) IU/L Alkaline Phosphatase 119 (38-126) U/L Total Creatine Kinase 72 (30-135) U/L CK-MB (CK-2) TNP CK-MB (CK-2) Rel Index TNP Troponin I < 0.012 (0.01-0.034) ng/mL NT-Pro-B Natriuret Pep 250 H (<125) pg/mL Total Protein 6.8 (6.3-8.2) g/dL Albumin 4.0 (3.5-5.0) g/dL Globulin 2.8 (1.7-4.1) g/dL Albumin/Globulin Ratio 1.4 (1.0-2.8) Lipase 77 (23-300) U/L Urine RBC (0-5/HPF) Urine WBC (0-5/HPF) Urine Bacteria (None) Ur Culture Indicated? Micro UA Comment Urine Dip Bedside Urine Glucose Negative Bedside Urine Bilirubin - Negative Bedside Urine Ketone + 15 Urine Specific Hercules 1.010 Bedside Urine Occult Blood - Negative Bedside Urine pH 8.0 Bedside Urine Protein +/- 15 Bedside Urine Urobilinogen - Negative Bedside Urine Nitrite - Negative Bedside Urine Leukocytes - Negative Esterase Imaging Data Chest x-ray: Radiologist's Impression: [address] [address] XRay Report Signed Patient: Caitie Poe MR#: [id number] : 1950 Acct:[id number] Age/Sex: 71 / F Date of Service: 05/09/22 Loc: ED Accession Number: [id number] ?? Procedure: XR chest 1V Ordering Provider: Cassie Arzola D.O. PROCEDURE:? XR CHEST 1V ? INDICATIONS:? chest pain. +covid ? TECHNIQUE:? One view of the chest was acquired.? ? COMPARISON:? [facility], , XR CHEST 1V, 05/08/2022, 15:20. ? FINDINGS:? ? Surgical changes and devices:? Left breast surgery, left axillary node resection. ? Lungs and pleura:? Lungs are clear.? No pleural effusions or pneumothorax.? ? Mediastinum:? Mediastinal contours appear normal.? Heart size is normal.? ? Bones and chest wall:? No suspicious bony lesions.? Overlying soft tissues appear unremarkable.? ? IMPRESSION:? No evidence acute pulmonary process. ? ? ? Dictated by: Neo Randolph M.D. on 05/09/2022 at 10:12 ? ? Approved by: Neo Randolph M.D. on 05/09/2022 at 10:13?? CT scan - chest: Radiologist's Impression: Close Chest CTA (Signed) Neo Randolph - 05/09/22 Chest X-Ray (Signed) Neo Randolph - 05/09/22 Chest X-Ray (Signed) Henok Leyva - 05/08/22 Launch?Image [address] [address] [address] Scan Report Signed Patient: Caitie Poe MR#: [id number] : 1950 Acct:[id number] Age/Sex: 71 / F Date of Service: 05/09/22 Loc: ED Accession Number: [id number] ?? Procedure: CT angio chest PE protocol Ordering Provider: Cassie Arzola D.O. PROCEDURE:? CT ANGIO CHEST PE PROTOCOL ? INDICATIONS:? +covid, chest pain, occs sob ? TECHNIQUE:? After the administration of intravenous contrast, 2 mm thick sections acquired from the pulmonary apices to the posterior costophrenic angles.? 3-dimensional maximum intensity projection (MIP) coronal and sagittal reformats were then acquired through the thorax.? For radiation dose reduction, the following was used:? automated exposure control, adjustment of mA and/or kV according to patient size.? ? COMPARISON:? [facility], CR, XR CHEST 1V, 05/09/2022, 9:53. ? FINDINGS:? Image quality:? Excellent.? ? Pulmonary arteries:? Pulmonary arteries are normal in size, and demonstrate no intraluminal filling defects to suggest central pulmonary embolism.? ? Lungs and pleura:? Minimal patchy bibasilar atelectasis.? Lungs otherwise clear.? No pleural effusions or pneumothorax.? Central and peripheral airways are patent.? ? Mediastinum:? Heart size is normal, without pericardial effusion.? No mediastinal or hilar adenopathy.? Thoracic aorta is normal in caliber and enhancement.? Esopha daniel is normal in caliber, without hiatal hernia.? ? Bones and chest wall:? No suspicious bony lesions.? Ribs and thoracic spine appear intact throughout.? Thyroid gland is unremarkable as visualized.? No axillary or supraclavicular adenopathy.? Remote left mastectomy and left breast reconstruction. ? Abdomen:? 4.9 cm liver cyst.? Visualized upper abdominal solid organs appear normal in the early arterial phase of enhancement.? ? IMPRESSION:? ? 1. Minimal patchy bibasilar atelectasis. ? 2. No findings of acute viral pneumonitis.? ? ? Dictated by: Neo Randolph M.D. on 05/09/2022 at 13:10 ? ? Approved by: Neo Randolph M.D. on 05/09/2022 at 13:13??? ECG Data Attestation: I personally reviewed and interpreted this ECG as follows: Prior ECG tracings: available for review Interpretation: Sinus rhythm, incomplete right bundle-branch, rate of 99 AL 162 QRS of 96 and QTC 436. No acute ST elevation depression noted. Patient has prior from 08/31/2016 which appears similar. Patient has prior from 08/31/2016 which appears similar. MDM Narrative Medical decision making narrative: This is a 71-year-old female who presents with complaint of known COVID and persistent nausea and vomiting despite Zofran. She is had fevers, she is developed some new chest pain since yesterday. No increasing shortness of breath. She is febrile, slightly tachycardic with a rate of 94, she is hype rtensive note she is not been able to take her medications since Saturday she normally takes metoprolol, losartan, prednisone and Repatha. Patient has been able to tolerate small sips of water but not anything more. Patient's ambulate to the bathroom several times she is feeling much better after fluids, dose of IV Zofran in the dose of Benadryl. Patient is able to take her home medications, blood pressure has not improved in the department and her labs showed an elevated dimer, CT angio was obtained is negative shows some atelectasis but no blood clot or other significant changes. Discussed return precautions, discussed with patient she can try Benadryl orally to see if this is better she seems to have had better luck with her nausea. Discharge Plan Departure Patient Disposition: Home Clinical Impression: COVID-19 virus infection, Nausea & vomiting Instructions: DI for COVID-19 (Suspected or Confirmed ) Activity Restrictions/Additional Instructions: Follow-up for recheck. You can continue the Zofran if you find it helpful 1 tablet every 6 hours for nausea and/or vomiting. I would take this medication at least 20 minutes before your regular home medications. You can add Benadryl 1-2 tablet every 6 hours as needed for nausea and vomiting this may be helpful as well. You may take Tylenol up to a 1000 mg every 6 hours and/or ibuprofen 600 mg every 6 hours as needed for fevers and/or muscle aches. Please return for persistent vomiting, unable to eat or drink anything or take your medications, worsening chest pain, shortness of breath, passing out, new swelling in her extremities or other new or concerning changes. Prescriptions: No Action diltiazem HCl 240 mg capsule,extended release 24hr 240 mg PO DAILY Patient Comments: take 1 capsule by mouth once daily losartan 50 mg Tablet 50 mg PO QPM Referrals: Mica Pace MD [Primary Care Provider] - Stand Alone Forms: Patient Portal/API
[2022-05-09] MEDS: ONDANSETRON 4 MG/2 ML INJ IV (09:23)
[2022-05-09] MEDS: KETOROLAC 30 MG/ML VIAL 15 MG IM (09:31)
[2022-05-09 09:32] LABS: Bacteria Urine None Seen; Culture Indicated Urine Cult Not Indicated; RBC Urine None Seen (0-5/HPF); Urine Comments Microscopic Normal; WBC Urine None Seen (0-5/HPF)
--- NOTE | 2022-05-09 09:45 | DI.RAD.S_ITS ---
PROCEDURE: XR CHEST 1V INDICATIONS: chest pain. +covid TECHNIQUE: One view of the chest was acquired. COMPARISON: [facility], CR, XR CHEST 1V, 05/08/2022, 15:20. FINDINGS: Surgical changes and devices: Left breast surgery, left axillary node resection. Lungs and pleura: Lungs are clear. No pleural effusions or pneumothorax. Mediastinum: Mediastinal contours appear normal. Heart size is normal. Bones and chest wall: No suspicious bony lesions. Overlying soft tissues appear unremarkable. IMPRESSION: No evidence acute pulmonary process. Dictated by: Neo Randolph M.D. on 05/09/2022 at 10:12 Approved by: Neo Randolph M.D. on 05/09/2022 at 10:13
[2022-05-09 09:54] LABS: Add Manual Diff / Slide Review NO; Basophils Absolute Auto 100 /uL (0-100); Basophils Percent Auto 0.7 % (0-2); Eosinophils Absolute Auto 0 /uL (0-450); Eosinophils Percent Auto 0.5 % (2-4); Hemoglobin 14.3 g/dL (12.0-16.0); Lymphocytes Absolute Auto 600 /uL (1100-4500); Lymphocytes Percent Auto 6.4 % (25-40); Mean Corpuscular Hemoglobin 32.5 PG (26-34); Mean Corpuscular Volume 95.4 fL (80-100); Monocytes Absolute Auto 1100 /uL (0-900); Monocytes Percent Auto 12.9 % (3-14); Neutrophils Absolute Auto 6900 /uL (1500-7000); Neutrophils Percent Auto 79.5 % (50-75); Platelet Count 217 X10^3/uL (150-400); White Blood Cell Count 8.6 X10^3/uL (4.5-11.0)
[2022-05-09 09:55] LABS: INR 1.2 (0.9-1.3); Prothrombin Time 13.2 SECONDS (10.1-12.7)
[2022-05-09 09:58] LABS: PTT Partial Thromboplastin Tim 32 SECONDS (26-36)
[2022-05-09 09:59] LABS: Alanine Aminotransferase 34 IU/L (<35); Albumin Globulin Ratio 1.4 (1.0-2.8); Alkaline Phosphatase 119 U/L (38-126); Aspartate Aminotransferase 36 IU/L (14-36); BUN Creatinine Ratio 18.2 (6-22); Bilirubin Total 0.5 mg/dL (0.2-1.3); Blood Urea Nitrogen 18 mg/dL (7-17); Calcium 8.7 mg/dL (8.4-10.2); Carbon Dioxide 29 mmol/L (22-32); Chloride 98 mmol/L (98-107); Creatine Kinase 72 U/L (30-135); Estimated Glomerular Filt Rate > 60 mL/min (>60); Globulin 2.8 g/dL (1.7-4.1); Glucose 108 mg/dL (80-110); HEMOLYSIS 15 (0-50); Lipase 77 U/L (23-300); Potassium 3.2 mmol/L (3.4-5.1); Sodium 134 mmol/L (137-145); Total Protein 6.8 g/dL (6.3-8.2)
[2022-05-09 10:00] LABS: Lactate (Lactic Acid) 0.9 mmol/L (0.7-2.1)
[2022-05-09 10:02] LABS: D Dimer 1109 ng/ml (<500)
[2022-05-09 10:11] LABS: NT-proBNP (BNP-Adult 18+) 250 pg/mL (<125); Troponin I < 0.012 ng/mL (0.01-0.034)
--- NOTE | 2022-05-09 10:35 | DI.CT.S_ITS ---
PROCEDURE: CT ANGIO CHEST PE PROTOCOL INDICATIONS: +covid, chest pain, occs sob TECHNIQUE: After the administration of intravenous contrast, 2 mm thick sections acquired from the pulmonary apices to the posterior costophrenic angles. 3-dimensional maximum intensity projection (MIP) coronal and sagittal reformats were then acquired through the thorax. For radiation dose reduction, the following was used: automated exposure control, adjustment of mA and/or kV according to patient size. COMPARISON: [facility], CR, XR CHEST 1V, 05/09/2022, 9:53. FINDINGS: Image quality: Excellent. Pulmonary arteries: Pulmonary arteries are normal in size, and demonstrate no intraluminal filling defects to suggest central pulmonary embolism. Lungs and pleura: Minimal patchy bibasilar atelectasis. Lungs otherwise clear. No pleural effusions or pneumothorax. Central and peripheral airways are patent. Mediastinum: Heart size is normal, without pericardial effusion. No mediastinal or hilar adenopathy. Thoracic aorta is normal in caliber and enhancement. Esophagus is normal in caliber, without hiatal hernia. Bones and chest wall: No suspicious bony lesions. Ribs and thoracic spine appear intact throughout. Thyroid gland is unremarkable as visualized. No axillary or supraclavicular adenopathy. Remote left mastectomy and left breast reconstruction. Abdomen: 4.9 cm liver cyst. Visualized upper abdominal solid organs appear normal in the early arterial phase of enhancement. IMPRESSION: 1. Minimal patchy bibasilar atelectasis. 2. No findings of acute viral pneumonitis. Dictated by: Neo Randolph M.D. on 05/09/2022 at 13:10 Approved by: Neo Randolph M.D. on 05/09/2022 at 13:13
[2022-05-09] MEDS: SODIUM CHLORIDE 0.9% 1,000 ML 1000 ML IV (10:40)
[2022-05-09] MEDS: LOSARTAN 50 MG TABLET PO (10:55)
[2022-05-09] MEDS: diphenhydrAMINE 50 MG/ML VIAL 25 MG IV (10:55)
[2022-05-09] MEDS: dilTIAZem CD 240 MG CAP PO (10:55)
== END 2022-05-09 13:40 | disposition home or self-care (01) ==
PROVIDERS: Emergency Provider Emergency Medicine; Family Provider Internal Medicine; PCP Internal Medicine
DX: U07.1 COVID-19 (principal); R11.2 Nausea with vomiting, unspecified; R07.9 Chest pain, unspecified
CPT/HCPCS: 36415; 71045; 71275; 80053; 81003; 81015; 82550; 83605; 83690; 83880; 84484; 85025; 85379; 85610; 85730; 87040; 93005; 96361; 96372; 96374; 96375; 99284; J1200; J1885; J2405; Q9967

== ENCOUNTER 2022-09-13 11:03 | Emergency (ER) | payer MEDICARE, OTHER, SELFPAY ==
[2022-09-13 11:16] VITALS: BP 186/94; PULSE 84; RESP 13; TEMP 36.6; O2SAT 96; BMI 24.2
--- NOTE | 2022-09-13 12:27 | DI.RAD.S_ITS ---
PROCEDURE: XR FOREARM RT 2V INDICATIONS: dog bite TECHNIQUE: 2 views of the forearm were acquired. COMPARISON: None. FINDINGS: Bones: No fractures or dislocations. No suspicious bony lesions. Soft tissues: No suspicious soft tissue calcifications or masses. Skin laceration is noted overlying the forearm. IMPRESSION: No visualized acute fracture or dislocation. However, if clinical concern and/or pain persist, short interval imaging followup in 7-10 days is recommended, as occult injury cannot be definitively excluded. Forearm skin laceration. Dictated by: Padmini Colon M.D. on 09/13/2022 at 13:04 Approved by: Padmini Colon M.D. on 09/13/2022 at 13:04
--- NOTE | 2022-09-13 12:28 | ED.ANIMALBIT ---
HPI - Animal Bite General Chief Complaint: Animal Bite Stated Complaint: bit by dog Time Seen by Provider: 09/13/22 11:57 Source: patient Mode of arrival: Ambulatory History of Present Illness HPI narrative: 72-year-old female with past medical history hypertension, SVT, rheumatoid arthritis presents to the ED status post a dog bite sustained 1 hour prior to arrival. Patient states she tried to olive picker her neighbor's dog when the dog bit her right forearm. Dog's vaccines are up-to-date. Patient's last tetanus was last year. Patient complains of pain to the right forearm. Denies numbness, tingling, weakness. Is able to move all extremities. Patient denies any other injuries. Related Data Home Medications Medication Instructions Recorded Confirmed diltiazem HCl 240 mg 240 mg PO DAILY 05/09/22 05/09/22 capsule,extended release 24 hr losartan 50 mg tablet 50 mg PO QPM 05/09/22 05/09/22 Previous Rx's Medication Instructions Recorded amoxicillin 875 mg-potassium 1 tab PO Q12H 7 days #14 tabs 09/13/22 clavulanate 125 mg tablet Allergies Allergy/AdvReac Type Severity Reaction Status Date / Time cocoa Allergy Severe bad hives Verified 09/13/22 11:22 and respiratory distress sumatriptan Allergy Severe severe Verified 09/13/22 11:22 palpations, hives coconut [COCONUT] Allergy Unknown HIVES AND Verified 09/13/22 11:22 RESP DISTRESS oxycodone [OXYCODONE] AdvReac Intermediate N/V Verified 09/13/22 11:22 PALM OIL Allergy Severe RESPIRATORY Uncoded 06/12/17 12:55 DISTRESS Review of Systems Review of Systems ROS Unobtainable: All systems reviewed & are unremarkable except as noted in HPI and below Constitutional Constitutional: Denies chills, Denies fatigue, Denies fever(s), Denies frequent falls, Denies lethargy and Denies weakness Eyes Eyes: Denies change in vision, Denies eye discharge, Denies irritation and Denies loss of vision ENT Ears, Nose, Mouth, and Throat: Denies change in voice, Denies dizziness, Denies neck pain, Denies sore throat and Denies throat swelling Cardiovascular Cardiovascular: Denies chest pain, Denies irregular heart rhythm, Denies lightheadedness, Denies palpitations, Denies dyspnea, Denies dyspnea on exertion and Denies orthopnea Respiratory Respiratory: Denies cough, Denies dyspnea, Denies dyspnea on exertion and Denies wheezing Gastrointestinal Gastrointestinal: Denies abdominal pain, Denies change in bowel habits, Denies diarrhea, Denies nausea and Denies vomiting Genitourinary Genitourinary: Denies hematuria, Denies flank pain, Denies urinary incontinence and Denies urinary urgency Musculoskeletal Musculoskeletal: Denies back pain, Denies muscle weakness, Denies neck pain, Denies numbness and Denies tingling Comments: Dog bite on right forearm Integumentary/Breasts Skin/Breast: Denies pruritus, Denies erythema, Denies rash and Denies wounds Neurologic Neurologic: Denies behavioral changes, Denies confusion, Denies dizziness, Denies frequent falls, Denies loss of vision, Denies numbness, Denies tingling and Denies weakness Psychiatric Psychiatric: Denies anxiety, Denies behavioral changes, Denies confusion, Denies depression, Denies homicidal ideation and Denies suicidal ideation Endocrine Endocrine: Denies fatigue, Denies flushing and Denies palpitations Hematologic/Lymphatic Hematologic/Lymphatic: Denies easy bruising Allergic/Immunologic Allergic/Immunologic: Denies urticaria, Denies throat swelling and Denies wheezing Patient History Social History Smoking Status: Never smoker Smoking Status: Never smoker alcohol intake frequency: 0-2 drinks per day Alcohol type: wine and hard liquor Substance Use Type: does not use Exam Narrative Exam Narrative: Const General:?cooperative, healthy appearing and comfortable [facility] Head:?normal to inspection Ears:?hearing grossly normal bilaterally Nose:?external nose normal Face and sinus:?normal facial exam and sinuses nontender Mouth:?oral mucosae normal Throat:?posterior oropharynx normal Eyes General:?appearance normal, both eyes and all related structures Neck Neck:?normal visual inspection and no lymphadenopathy noted Resp Effort & Inspection:?normal respiratory effort Auscultation:?clear to auscultation bilaterally Cardio Rate:?regular rate Rhythm:?regular rhythm Integumentary 2 small skin tears to the right forearm. Bleeding has been controlled with pressure. No internal structures visualized upon exam. Strength and sensation is intact. There is full range of motion. Patient is neurovascularly intact. There is some swelling, bruising and tenderness to palpation of the right forearm at the site of the bite. Neuro General:?patient alert, patient awake and patient oriented x3 Initial Vital Signs Initial Vital Signs: Vital Signs Temperature 97.9 F 09/13/22 11:16 Pulse Rate 84 09/13/22 11:16 Respiratory Rate 13 09/13/22 11:16 Blood Pressure 186/94 H 09/13/22 11:16 Pulse Oximetry 96 09/13/22 11:16 Oxygen Delivery Method Room Air 09/13/22 11:16 Course Orders Ordered: ED Orders 09/13/22 12:27 XR forearm RT 2V Stat Discontinued Medications Amoxicillin/Clavulanate Potassium (Amoxicillin/Clav 875/125 Mg) 1 tab PO NOW ONE Stop: 09/13/22 12:28 Last Admin: 09/13/22 12:30 Dose: 1 tab Documented By: SATHYA Vital Signs Vital signs: Vital Signs - 8 hr 09/13/22 13:19 Pulse Rate 74 Respiratory Rate 12 Blood Pressure 190/93 H Pulse Oximetry 97 Oxygen Delivery Method Room Air MDM - Animal Bite MDM Narrative Medical decision making narrative: 72-year-old female with past medical history hypertension, SVT, rheumatoid arthritis presents to the ED status post a dog bite sustained 1 hour prior to arrival. Concern for dog bite versus fracture versus foreign body versus other. Will obtain x-ray. Will start antibiotics. There appears to be 2 small skin tears, no indication for repair. First dose of antibiotic administered in the ED. patient declines pain medication in the ED. X-ray negative for fracture/dislocation/foreign body. Signs of infection, wound care instructions discussed with patient. ED return precautions discussed with patient. Patient verbalized understanding. Medical records reviewed: Yes Discharge Plan Departure Patient Disposition: Home Clinical Impression: Dog bite Instructions: DI for Dog Bite Activity Restrictions/Additional Instructions: You were evaluated in the ED today for a dog bite. It appears that your tetanus vaccine is up-to-date. The x-ray did not show any imbedded dog teeth or fracture/dislocation. Please keep your wound clean and dry. You have been started on antibiotics prevent infection. You were given your 1st dose of antibiotics in the ED today. Please complete the full course of antibiotics as prescribed. Return to the ED if you have worsening symptoms, signs of infection including worsening redness, pain, swelling, discharge, warmth. Please follow-up with your PCP in 3-5 days. Prescriptions: New amoxicillin-pot clavulanate 875-125 mg tablet 1 tab PO Q12H 7 Days Qty: 14 0RF No Action diltiazem HCl 240 mg capsule,extended release 24hr 240 mg PO DAILY Patient Comments: take 1 capsule by mouth once daily losartan 50 mg Tablet 50 mg PO QPM Referrals: Mica Pace MD [Primary Care Provider] - Stand Alone Forms: Patient Portal/API
[2022-09-13] MEDS: AMOXICILLIN/CLAV 875/125 MG 1 TAB PO (12:30)
[2022-09-13 13:19] VITALS: BP 190/93; PULSE 74; RESP 12; O2SAT 97
== END 2022-09-13 13:21 | disposition home or self-care (01) ==
PROVIDERS: Emergency Provider Student in an Organized Health Care Education/Training Program; Family Provider Internal Medicine; PCP Internal Medicine
DX: S51.851A Open bite of right forearm, initial encounter (principal); W54.0XXA Bitten by dog, initial encounter
CPT/HCPCS: 73090; 99283

== ENCOUNTER → 2022-09-18 16:38 | Outpatient (CLI) | payer MEDICARE, OTHER, SELFPAY | PROVIDERS: Family Provider Internal Medicine; PCP Internal Medicine; Visit Provider Student in an Organized Health Care Education/Training Program | DX: T14.8XXA Other injury of unspecified body region, initial encounter (principal); W54.0XXA Bitten by dog, initial encounter | CPT/HCPCS: 87070; 87075; 87205 ==

== ENCOUNTER → 2023-06-14 16:00 | Outpatient (CLI) | payer MEDICARE, OTHER, SELFPAY ==
[2023-06-14 16:54] LABS: Add Manual Diff / Slide Review NO; Basophils Absolute Auto 100 /uL (0-100); Basophils Percent Auto 0.6 % (0-2); Eosinophils Absolute Auto 0 /uL (0-450); Eosinophils Percent Auto 0.2 % (2-4); Hematocrit 41.4 % (36-46); Hemoglobin 13.8 g/dL (12.0-16.0); Lymphocytes Absolute Auto 1300 /uL (1100-4500); Lymphocytes Percent Auto 13.9 % (25-40); Mean Corpuscular HGB Conc 33.4 % (30-36); Mean Corpuscular Hemoglobin 33.9 PG (26-34); Mean Corpuscular Volume 101.6 fL (80-100); Monocytes Absolute Auto 500 /uL (0-900); Monocytes Percent Auto 5.6 % (3-14); Neutrophils Absolute Auto 7200 /uL (1500-7000); Neutrophils Percent Auto 79.7 % (50-75); Platelet Count 298 X10^3/uL (150-400); Red Blood Cell Count 4.08 X10^6/uL (4.0-5.2); Red Cell Distribution Width 13.6 % (11.6-14.8); White Blood Cell Count 9.1 X10^3/uL (4.5-11.0)
[2023-06-14 17:41] LABS: Erythrocyte Sedimentation Rate 10 MM/HR (0-20)
[2023-06-14 17:53] LABS: Alanine Aminotransferase 21 IU/L (<35); Albumin Globulin Ratio 1.4 (1.0-2.8); Alkaline Phosphatase 90 U/L (38-126); Aspartate Aminotransferase 22 IU/L (14-36); BUN Creatinine Ratio 22.2 (6-22); Bilirubin Total 0.7 mg/dL (0.2-1.3); Blood Urea Nitrogen 20 mg/dL (7-17); C-Reactive Protein Quant < 0.5 mg/dL (<1.0); Calcium 9.7 mg/dL (8.4-10.2); Carbon Dioxide 28 mmol/L (22-32); Chloride 106 mmol/L (98-107); Estimated Glomerular Filt Rate > 60 mL/min (>60); Globulin 2.9 g/dL (1.7-4.1); Glucose 124 mg/dL (80-110); HEMOLYSIS < 15 (0-50); Sodium 138 mmol/L (137-145); Total Protein 6.9 g/dL (6.3-8.2)
== END ==
PROVIDERS: Family Provider Internal Medicine; PCP Internal Medicine; Referring Provider Internal Medicine; Visit Provider Internal Medicine
DX: M06.9 Rheumatoid arthritis, unspecified (principal)
CPT/HCPCS: 36415; 80053; 85025; 85651; 86140

== ENCOUNTER → 2023-07-08 13:57 | Outpatient (CLI) | payer MEDICARE, OTHER, SELFPAY ==
[2023-07-09 06:08] LABS: Cholesterol HDL Ratio 4.4 ratio (0.0-4.4); Cholesterol,Total 261 mg/dL (100-199); HDL Cholesterol 59 mg/dL (>39); LDL Cholesterol Cal 173 mg/dL (0-99); Triglycerides 162 mg/dL (0-149); VLDL Cholesterol Cal 29 mg/dL (5-40)
== END ==
PROVIDERS: Family Provider Internal Medicine; PCP Internal Medicine; Referring Provider Physician Assistant; Visit Provider Physician Assistant
DX: E78.5 Hyperlipidemia, unspecified (principal)
CPT/HCPCS: 36415; 80061